=== PATIENT | female | born 1945 | race Caucasian/White ===

== ENCOUNTER 2021-04-21 09:11 | Observation (INO) | payer MEDICARE ==
[2021-04-21] MEDS ORDERED: Albuterol/Ipratropium 3.0-0.5 MG/3 ML Neb Soln NEB ONE (10:54)
--- NOTE | 2021-04-21 10:57 | EDM.PDOC ---
ED HPI GENERAL MEDICAL PROBLEM - General Chief Complaint: Respiratory Problem Stated Complaint: SHORTNESS OF BREATH Time Seen by Provider: 04/21/21 10:45 Source of Information: Reports: Patient, Family - History of Present Illness INITIAL COMMENTS - FREE TEXT/NARRATIVE: 76-year-old female notes that she has had increasing shortness of breath and difficulty breathing it would seem for the last several days accompanied by extreme smoke in the atmosphere. She does note a history of lung disease or heart disease. She apparently has had an inhaler in the past but not in recent years. She has mild back and chest discomfort but no radiation no diaphoresis no nausea. No family history of heart disease as noted. No fever or chills. She raises green phlegm in the morning. Appetite is diminished in the last few days but her bowel habits and urine habits have not changed. No other acute problems are identified. - Related Data Allergies Allergy/AdvReac Type Severity Reaction Status Date / Time codeine AdvReac Vomiting Verified 04/21/21 09:49 Home Meds: Home Meds Lovastatin 20 mg PO DAILY 04/21/21 [History] amLODIPine [Norvasc] 10 mg PO DAILY 04/21/21 [History] glipiZIDE [Glucotrol XL] 10 mg PO BID 04/21/21 [History] lisinopriL [Lisinopril] 10 mg PO DAILY 04/21/21 [History] metFORMIN [Glucophage] 1,000 mg PO BID 04/21/21 [History] Past Medical History HEENT History: Reports: Impaired Vision Cardiovascular History: Reports: High Cholesterol, Hypertension Respiratory History: Reports: Asthma Genitourinary History: Reports: None 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: Endocrine/Metabolic History: Reports: Diabetes, Type II, Obesity/BMI 30+ - Infectious Disease History Infectious Disease History: Reports: Chicken Pox, Influenza, Measles, Mumps, Pertussis (Whooping Cough) - Past Surgical History Head Surgeries/Procedures: Reports: None HEENT Surgical History: Reports: Cataract Surgery Cardiovascular Surgical History: Reports: None Respiratory Surgical History: Reports: None Endocrine Surgical History: Reports: None Dermatological Surgical History: Reports: None Social & Family History - Tobacco Use Tobacco Use Status *Q: Never Tobacco User Second Hand Smoke Exposure: No - Caffeine Use Caffeine Use: Reports: None - Recreational Drug Use Recreational Drug Use: No ED ROS GENERAL - Review of Systems Review Of Systems: Comprehensive ROS is negative, except as noted in HPI. ED EXAM, GENERAL - Physical Exam Exam: See Below Free Text/Narrative:: 76-year-old female alert and cooperative sitting on a stool not appear to be in distress significantly. HEENT shows eyes ears nose and throat appear to be normal. Mouth is moist neck is supple normal range of motion Chest is chest is clear with a regular rate and rhythm with no abnormal heart sounds or murmurs. Abdomen soft active bowel sounds but large Skin appears normal without rash Musculoskeletal appears normal with normal mobility and range of motion Neurologic physiologic urine tone and coordination. Exam Limited By: No Limitations Course - Vital Signs Text/Narrative:: CT of the chest does show a large pleural effusion on the left but significant lymphadenopathy in the regionand mass and area compatible with lymphoma so she needs to have a thoracentesis 1 improve her breathing and to normally get the cells out or do a biopsy 100 and round and there axilla and lateral area okay that would be great Dr. Aden is already accepted her P we will the mass compatible with lymph lymphoma Had another interesting case here 76-year-old lady shortness of breath in the last month or so and now diminishing appetite generally feeling well when she exerts herself confined much on physical exam she thought she dislocated inhalers because historically she got helped her years past mild no wheezing nothing in her chest so I did a chest x-ray today pleural effusion CT shows large pleural effusion on the left little bit on the right with massive lymphadenopathy axilla and Dr. Mari in the hospitalist is willing to admit and Dr. Dowd will do a thoracentesis tomorrow and appropriate biopsy Last Recorded V/S: Last Vital Signs Temp 36.6 C 04/21/21 09:54 Pulse 111 H 04/21/21 11:32 Resp 20 04/21/21 11:32 BP 111/65 04/21/21 11:32 Pulse Ox 94 L 04/21/21 11:32 - Orders/Labs/Meds Orders: Active Orders 24 hr Category Date Time Status EKG Documentation Completion [RC] ASDIRECTED Care 04/21/21 10:50 Active RT Aerosol Therapy [RC] ASDIRECTED Care 04/21/21 10:54 Active Iopamidol [Isovue-370 (76%)] Med 04/21/21 13:30 Active 75 ml IV . DIRECTED Sodium Chloride 0.9% [Saline Flush] Med 04/21/21 13:23 Active 10 ml FLUSH ONETIME PRN EKG 12 Lead [EK] Stat Ther 04/21/21 10:49 Ordered Medication Orders Iopamidol (Iopamidol 755 Mg/Ml 100 Ml Bottle) 75 ml IV . DIRECTED [facility] Last Admin: 04/21/21 13:42 Dose: 75 ml Documented by: GENIE Sodium Chloride (Sodium Chloride 0.9% 10 Ml Syringe) 10 ml FLUSH ONETIME PRN PRN Reason: PER RADIOLOGY PROTOCOL Last Admin: 04/21/21 13:41 Dose: 10 ml Documented by: GENIE Labs: Laboratory Tests 04/21/21 04/21/21 04/21/21 Range/Units 11:06 11:06 11:06 WBC 11.9 H (4.5-11.0) K/uL RBC 4.70 (3.30-5.50) M/uL Hgb 12.3 (12.0-15.0) g/dL Hct 38.8 (36.0-48.0) % MCV 83 (80-98) fL MCH 26 L (27-31) pg MCHC 32 (32-36) % Plt Count 381 (150-400) K/uL D-Dimer, Quantitative 1804.35 H (0.0-500.0) ng/mL ABG Hemoglobin (12.0-16.0) g/dL ABG Oxyhemoglobin % ABG Carboxyhemoglobin (0.0-1.6) % ABG Methemoglobin % VBG pH (7.350-7.450) VBG pCO2 mm/Hg VBG pO2 mm/Hg VBG HCO3 mmol/L VBG Total CO2 mmol/L VBG O2 Saturation VBG O2 Content %vol VBG Base Excess mm/L O2 Delivery Device Sodium 138 L (140-148) mmol/L Potassium 4.7 (3.6-5.2) mmol/L Chloride 101 (100-108) mmol/L Carbon Dioxide 26 (21-32) mmol/L Anion Gap 15.7 H (5.0-14.0) mmol/L BUN 18 (7-18) mg/dL Creatinine 1.1 H (0.6-1.0) mg/dL Est Cr Clr Drug Dosing 30.76 mL/min Estimated GFR (MDRD) 48 L (>60) Glucose 101 (74-106) mg/dL Calcium 10.0 (8.5-10.1) mg/dL Total Bilirubin 0.6 (0.2-1.0) mg/dL AST 27 (15-37) U/L ALT 21 (12-78) U/L Alkaline Phosphatase 93 (46-116) U/L Troponin I (0.000-0.056) ng/mL C-Reactive Protein 12.37 H (0.0-0.3) mg/dL NT-Pro-B Natriuret Pep 65 (5-450) pg/mL Total Protein 6.5 (6.4-8.2) g/dL Albumin 2.4 L (3.4-5.0) g/dL Globulin 4.1 H (2.3-3.5) g/dL Albumin/Globulin Ratio 0.6 L (1.2-2.2) Urine Color (YELLOW) Urine Appearance (CLEAR) Urine pH (5.0-8.0) Ur Specific [place] (1.008-1.030) Urine Protein (NEGATIVE) mg/dL Urine Glucose (UA) (NEGATIVE) mg/dL Urine Ketones (NEGATIVE) mg/dL Urine Occult Blood (NEGATIVE) Urine Nitrite (NEGATIVE) Urine Bilirubin (NEGATIVE) Urine Urobilinogen (0.2-1.0) EU/dL Ur Leukocyte Esterase (NEGATIVE) Urine RBC (0-5) Urine WBC (0-5) Ur Epithelial Cells Amorphous Sediment Urine Bacteria Urine Mucus 04/21/21 04/21/21 04/21/21 Range/Units 11:06 11:06 11:31 WBC (4.5-11.0) K/uL RBC (3.30-5.50) M/uL Hgb (12.0-15.0) g/dL Hct (36.0-48.0) % MCV (80-98) fL MCH (27-31) pg MCHC (32-36) % Plt Count (150-400) K/uL D-Dimer, Quantitative (0.0-500.0) ng/mL ABG Hemoglobin 13.0 (12.0-16.0) g/dL ABG Oxyhemoglobin 67.5 % ABG Carboxyhemoglobin 2.6 H (0.0-1.6) % ABG Methemoglobin 0.9 % VBG pH 7.471 H (7.350-7.450) VBG pCO2 33.3 mm/Hg VBG pO2 36.3 mm/Hg VBG HCO3 24.0 mmol/L VBG Total CO2 21.3 mmol/L VBG O2 Saturation 70.0 VBG O2 Content 12.3 %vol VBG Base Excess 1.3 mm/L O2 Delivery Device Room air Sodium (140-148) mmol/L Potassium (3.6-5.2) mmol/L Chloride (100-108) mmol/L Carbon Dioxide (21-32) mmol/L Anion Gap (5.0-14.0) mmol/L BUN (7-18) mg/dL Creatinine (0.6-1.0) mg/dL Est Cr Clr Drug Dosing mL/min Estimated GFR (MDRD) (>60) Glucose (74-106) mg/dL Calcium (8.5-10.1) mg/dL Total Bilirubin (0.2-1.0) mg/dL AST (15-37) U/L ALT (12-78) U/L Alkaline Phosphatase (46-116) U/L Troponin I < 0.017 (0.000-0.056) ng/mL C-Reactive Protein (0.0-0.3) mg/dL NT-Pro-B Natriuret Pep (5-450) pg/mL Total Protein (6.4-8.2) g/dL Albumin (3.4-5.0) g/dL Globulin (2.3-3.5) g/dL Albumin/Globulin Ratio (1.2-2.2) Urine Color Yellow (YELLOW) Urine Appearance Cloudy A (CLEAR) Urine pH 5.5 (5.0-8.0) Ur Specific [place] 1.025 (1.008-1.030) Urine Protein 30 H (NEGATIVE) mg/dL Urine Glucose (UA) Negative (NEGATIVE) mg/dL Urine Ketones Trace H (NEGATIVE) mg/dL Urine Occult Blood Negative (NEGATIVE) Urine Nitrite Positive H (NEGATIVE) Urine Bilirubin Small H (NEGATIVE) Urine Urobilinogen 1.0 (0.2-1.0) EU/dL Ur Leukocyte Esterase Small H (NEGATIVE) Urine RBC 0-5 (0-5) Urine WBC 10-20 H (0-5) Ur Epithelial Cells Moderate Amorphous Sediment Not seen Urine Bacteria Many Urine Mucus Many Meds: Medications Generic Name Dose Route Start Last Admin Trade Name Freq PRN Reason Stop Dose Admin Iopamidol 75 ml 04/21/21 13:30 04/21/21 13:42 Iopamidol 755 Mg/Ml 100 Ml Bottle IV 75 ml . DIRECTED THIAGO Administration Sodium Chloride 10 ml 04/21/21 13:23 04/21/21 13:41 Sodium Chloride 0.9% 10 Ml Syringe FLUSH 10 ml ONETIME PRN Administration PER RADIOLOGY PROTOCOL Discontinued Medications Generic Name Dose Route Start Last Admin Trade Name Freq PRN Reason Stop Dose Admin Albuterol/Ipratropium 3 ml 04/21/21 10:54 04/21/21 11:13 Albuterol/Ipratropium 3.0-0.5 Mg/3 Ml Neb Soln NEB 04/21/21 10:55 3 ml ONETIME ONE Administration Sodium Chloride 89 mls @ 3 mls/sec 04/21/21 13:23 04/21/21 13:42 Normal Saline IV 04/21/21 13:24 3 mls/sec ONETIME ONE Administration Departure - Departure Time of Disposition: 15:30 Disposition: Admitted As Inpatient 65 Clinical Impression: Pleural effusion - Discharge Information Referrals: Timbo Vidal MD [Primary Care Provider] - Sepsis Event Note (ED) - Evaluation Sepsis Screening Result: Possible Sepsis Risk - Focused Exam Vital Signs: Vital Signs Temp Pulse Resp BP Pulse Ox 04/21/21 11:32 111 H 20 111/65 94 L 04/21/21 09:54 36.6 C 116 H 24 H 137/75 92 L 04/21/21 09:48 36.6 C 116 H 24 H 137/75 92 L - My Orders Last 24 Hours: My Active Orders 04/21/21 10:49 EKG 12 Lead [EK] Stat 04/21/21 10:50 EKG Documentation Completion [RC] ASDIRECTED 04/21/21 10:54 RT Aerosol Therapy [RC] ASDIRECTED 04/21/21 13:23 Sodium Chloride 0.9% [Saline Flush] 10 ml FLUSH ONETIME PRN 04/21/21 13:30 Iopamidol [Isovue-370 (76%)] 75 ml IV . DIRECTED - Assessment/Plan Last 24 Hours: My Active Orders 04/21/21 10:49 EKG 12 Lead [EK] Stat 04/21/21 10:50 EKG Documentation Completion [RC] ASDIRECTED 04/21/21 10:54 RT Aerosol Therapy [RC] ASDIRECTED 04/21/21 13:23 Sodium Chloride 0.9% [Saline Flush] 10 ml FLUSH ONETIME PRN 04/21/21 13:30 Iopamidol [Isovue-370 (76%)] 75 ml IV . DIRECTED
--- NOTE | 2021-04-21 11:27 | CR ---
CHEST: 2 view CLINICAL HISTORY:SOB COMPARISON:None FINDINGS: Patient has a large left pleural effusion. Left heart margin is obscured. Pulmonary vascularity appears normal. Right lung is clear. Impression: Large left pleural effusion with underlying airspace disease. Underlying neoplasm not excluded
[2021-04-21] MEDS ORDERED: Sodium Chloride 0.9% 10 ML Syringe FLUSH PRN (13:23)
[2021-04-21] MEDS ORDERED: Iopamidol 755 Mg/ML 100 ML Bottle IV SCH (13:30)
--- NOTE | 2021-04-21 14:19 | CT ---
Ang Chest CLINICAL HISTORY: Large left pleural effusion, elevated d-dimer. TECHNIQUE: Thin section axial contiguous tomographic sections were taken through the chest after bolus IV iodinated contrast administration. Coronal and sagittal images were reconstructed. Auto dosage reduction and iterative reconstruction techniques employed. FINDINGS: Patient has a large left pleural effusion. There is airspace disease involving the left lung particularly in the left lower lobe much of which is compressive atelectasis. There is some groundglass opacification in the left upper lobe which could represent infiltrate or pneumonitis. There is a small right pleural effusion. There is some minimal groundglass opacification. There is diminished blood flow to the left lung due to pleural effusion and compressive atelectasis. No pulmonary artery filling defects are identified. Patient has a large mass in the left neck extending above the upper most scans. This measures 4.2 x 7.4 cm in AP and transverse diameter. The cranial to caudal extends beyond 7 cm. There is significant adenopathy in the both axilla and in the mediastinum. This may represent a lymphoma. Scans in the upper abdomen show extensive retroperitoneal lymphadenopathy IMPRESSION: No evidence of pulmonary embolus Large left pleural effusion with moderate compressive atelectasis of the left lung. There is a small right effusion Extensive lymphadenopathy in the axillae, mediastinum and retroperitoneum with a large mass versus matted adenopathy in the subclavicular region medially extending up and into the neck. This may represent lymphoma
--- NOTE | 2021-04-21 16:30 | PCM.HP.2 ---
H&P History of Present Illness - General Date of Service: 04/21/21 Admit Problem/Dx: Admission Diagnosis/Problem Admission Diagnosis/Problem Pleural effusion Source of Information: Patient, Family, Provider, RN Notes Reviewed History Limitations: Reports: No Limitations - History of Present Illness Initial Comments - Free Text/Narative: Ms. Centeno is a 76-year-old woman who was admitted through the emergency department to observation status with progressive fatigue and shortness of breath, secondary to a large left pleural effusion and probable lymphoma. She has not felt well over the past few weeks and is developed progressive fatigue as well as shortness of breath during that period of time. She presented to the emergency department today for further evaluation. White blood cell count is mildly elevated and there was elevation in CRP. Chest x-ray showed evidence of a large left pleural effusion. D-dimer was elevated so CT scan angiogram of the chest was obtained. There was no evidence of pulmonary embolism. CT scan did document a very large left pleural effusion and extensive lymphadenopathy in the retroperitoneum, mediastinum, axilla, and subclavicular space extending into the neck. - Related Data Allergies/Adverse Reactions: Allergies Allergy/AdvReac Type Severity Reaction Status Date / Time codeine AdvReac Vomiting Verified 04/21/21 09:49 Home Medications: Home Meds Lovastatin 20 mg PO DAILY 04/21/21 [History] amLODIPine [Norvasc] 10 mg PO DAILY 04/21/21 [History] glipiZIDE [Glucotrol XL] 10 mg PO BID 04/21/21 [History] lisinopriL [Lisinopril] 10 mg PO DAILY 04/21/21 [History] metFORMIN [Glucophage] 1,000 mg PO BID 04/21/21 [History] Past Medical History HEENT History: Reports: Impaired Vision Cardiovascular History: Reports: High Cholesterol, Hypertension Respiratory History: Reports: Asthma Genitourinary History: Reports: None 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: Endocrine/Metabolic History: Reports: Diabetes, Type II, Obesity/BMI 30+ - Infectious Disease History Infectious Disease History: Reports: Chicken Pox, Influenza, Measles, Mumps, Pertussis (Whooping Cough) - Past Surgical History Head Surgeries/Procedures: Reports: None HEENT Surgical History: Reports: Cataract Surgery Cardiovascular Surgical History: Reports: None Respiratory Surgical History: Reports: None Endocrine Surgical History: Reports: None Dermatological Surgical History: Reports: None Social & Family History - Tobacco Use Tobacco Use Status *Q: Never Tobacco User Second Hand Smoke Exposure: No - Caffeine Use Caffeine Use: Reports: None - Recreational Drug Use Recreational Drug Use: No H&P Review of Systems - Review of Systems: Review Of Systems: See Below General: Reports: Weakness, Fatigue. Denies: Fever, Chills HEENT: Reports: No Symptoms Pulmonary: Reports: Shortness of Breath, Cough. Denies: Wheezing, Pleuritic Chest Pain, Sputum, Hemoptysis Cardiovascular: Reports: Dyspnea on Exertion, Edema. Denies: Chest Pain, Palpitations, Orthopnea, PND, Lightheadedness Gastrointestinal: Reports: No Symptoms Genitourinary: Reports: No Symptoms Musculoskeletal: Reports: No Symptoms Skin: Reports: No Symptoms Psychiatric: Reports: No Symptoms Neurological: Reports: No Symptoms Hematologic/Lymphatic: Reports: No Symptoms Immunologic: Reports: No Symptoms Exam - Exam Exam: See Below - Vital Signs Vital Signs: Last Vital Signs Temp 98 F 04/21/21 09:54 Pulse 111 H 04/21/21 11:32 Resp 20 04/21/21 11:32 BP 111/65 04/21/21 11:32 Pulse Ox 94 L 04/21/21 11:32 Weight: 166 lb 14.239 oz - Exam Quality Assessment: DVT Prophylaxis General: Alert, Oriented, Cooperative, Mild Distress HEENT: Conjunctiva Clear, Hearing Intact, Mucosa Moist & [place], Normal Nasal Septum, Posterior Pharynx Clear, Pupils Equal Neck: Supple, Trachea Midline, Lymphadenopathy Lungs: Normal Respiratory Effort, Decreased Breath Sounds (Left lung field) Cardiovascular: Regular Rate, Regular Rhythm, Normal S1, Normal S2. No: Systolic Murmur, Diastolic Murmur GI/Abdominal Exam: Soft, Non-Tender, No Organomegaly, No Distention Back Exam: Normal Inspection, Full Range of Motion Skin: Warm, Dry, Intact Neurological: Cranial Nerves Intact, Strength Equal Bilateral, Normal Speech, Normal Tone, Sensation Intact. No: Focal Deficit Neuro Extensive - Mental Status: Alert, Oriented x3, Normal Mood/Affect, Normal Cognition, Memory Intact - Patient Data Lab Results Last 24 hrs: Laboratory Results - last 24 hr 04/21/21 04/21/21 04/21/21 Range/Units 11:06 11:06 11:06 WBC 11.9 H (4.5-11.0) K/uL RBC 4.70 (3.30-5.50) M/uL Hgb 12.3 (12.0-15.0) g/dL Hct 38.8 (36.0-48.0) % MCV 83 (80-98) fL MCH 26 L (27-31) pg MCHC 32 (32-36) % Plt Count 381 (150-400) K/uL D-Dimer, Quantitative 1804.35 H (0.0-500.0) ng/mL ABG Hemoglobin (12.0-16.0) g/dL ABG Oxyhemoglobin % ABG Carboxyhemoglobin (0.0-1.6) % ABG Methemoglobin % VBG pH (7.350-7.450) VBG pCO2 mm/Hg VBG pO2 mm/Hg VBG HCO3 mmol/L VBG Total CO2 mmol/L VBG O2 Saturation VBG O2 Content %vol VBG Base Excess mm/L O2 Delivery Device Sodium 138 L (140-148) mmol/L Potassium 4.7 (3.6-5.2) mmol/L Chloride 101 (100-108) mmol/L Carbon Dioxide 26 (21-32) mmol/L Anion Gap 15.7 H (5.0-14.0) mmol/L BUN 18 (7-18) mg/dL Creatinine 1.1 H (0.6-1.0) mg/dL Est Cr Clr Drug Dosing 30.76 mL/min Estimated GFR (MDRD) 48 L (>60) Glucose 101 (74-106) mg/dL Calcium 10.0 (8.5-10.1) mg/dL Total Bilirubin 0.6 (0.2-1.0) mg/dL AST 27 (15-37) U/L ALT 21 (12-78) U/L Alkaline Phosphatase 93 (46-116) U/L Troponin I (0.000-0.056) ng/mL C-Reactive Protein 12.37 H (0.0-0.3) mg/dL NT-Pro-B Natriuret Pep 65 (5-450) pg/mL Total Protein 6.5 (6.4-8.2) g/dL Albumin 2.4 L (3.4-5.0) g/dL Globulin 4.1 H (2.3-3.5) g/dL Albumin/Globulin Ratio 0.6 L (1.2-2.2) Urine Color (YELLOW) Urine Appearance (CLEAR) Urine pH (5.0-8.0) Ur Specific [place] (1.008-1.030) Urine Protein (NEGATIVE) mg/dL Urine Glucose (UA) (NEGATIVE) mg/dL Urine Ketones (NEGATIVE) mg/dL Urine Occult Blood (NEGATIVE) Urine Nitrite (NEGATIVE) Urine Bilirubin (NEGATIVE) Urine Urobilinogen (0.2-1.0) EU/dL Ur Leukocyte Esterase (NEGATIVE) Urine RBC (0-5) Urine WBC (0-5) Ur Epithelial Cells Amorphous Sediment Urine Bacteria Urine Mucus 04/21/21 04/21/21 04/21/21 Range/Units 11:06 11:06 11:31 WBC (4.5-11.0) K/uL RBC (3.30-5.50) M/uL Hgb (12.0-15.0) g/dL Hct (36.0-48.0) % MCV (80-98) fL MCH (27-31) pg MCHC (32-36) % Plt Count (150-400) K/uL D-Dimer, Quantitative (0.0-500.0) ng/mL ABG Hemoglobin 13.0 (12.0-16.0) g/dL ABG Oxyhemoglobin 67.5 % ABG Carboxyhemoglobin 2.6 H (0.0-1.6) % ABG Methemoglobin 0.9 % VBG pH 7.471 H (7.350-7.450) VBG pCO2 33.3 mm/Hg VBG pO2 36.3 mm/Hg VBG HCO3 24.0 mmol/L VBG Total CO2 21.3 mmol/L VBG O2 Saturation 70.0 VBG O2 Content 12.3 %vol VBG Base Excess 1.3 mm/L O2 Delivery Device Room air Sodium (140-148) mmol/L Potassium (3.6-5.2) mmol/L Chloride (100-108) mmol/L Carbon Dioxide (21-32) mmol/L Anion Gap (5.0-14.0) mmol/L BUN (7-18) mg/dL Creatinine (0.6-1.0) mg/dL Est Cr Clr Drug Dosing mL/min Estimated GFR (MDRD) (>60) Glucose (74-106) mg/dL Calcium (8.5-10.1) mg/dL Total Bilirubin (0.2-1.0) mg/dL AST (15-37) U/L ALT (12-78) U/L Alkaline Phosphatase (46-116) U/L Troponin I < 0.017 (0.000-0.056) ng/mL C-Reactive Protein (0.0-0.3) mg/dL NT-Pro-B Natriuret Pep (5-450) pg/mL Total Protein (6.4-8.2) g/dL Albumin (3.4-5.0) g/dL Globulin (2.3-3.5) g/dL Albumin/Globulin Ratio (1.2-2.2) Urine Color Yellow (YELLOW) Urine Appearance Cloudy A (CLEAR) Urine pH 5.5 (5.0-8.0) Ur Specific [place] 1.025 (1.008-1.030) Urine Protein 30 H (NEGATIVE) mg/dL Urine Glucose (UA) Negative (NEGATIVE) mg/dL Urine Ketones Trace H (NEGATIVE) mg/dL Urine Occult Blood Negative (NEGATIVE) Urine Nitrite Positive H (NEGATIVE) Urine Bilirubin Small H (NEGATIVE) Urine Urobilinogen 1.0 (0.2-1.0) EU/dL Ur Leukocyte Esterase Small H (NEGATIVE) Urine RBC 0-5 (0-5) Urine WBC 10-20 H (0-5) Ur Epithelial Cells Moderate Amorphous Sediment Not seen Urine Bacteria Many Urine Mucus Many Result Diagrams: 04/21/21 11:06 04/21/21 11:06 Sepsis Event Note - Evaluation Sepsis Screening Result: Possible Sepsis Risk - Focused Exam Vital Signs: Vital Signs Temp Pulse Resp BP Pulse Ox 04/21/21 11:32 111 H 20 111/65 94 L 04/21/21 09:54 98 F 116 H 24 H 137/75 92 L 04/21/21 09:48 98 F 116 H 24 H 137/75 92 L *Q Meaningful Use (ADM) - VTE *Q VTE Pharmacological Contraindications *Q: Patient Scheduled Surgery - VTE Risk Assess *Q Each Risk Factor Represents 1 Point: Obesity ( BMI > 25 kg/m2), Serious lung disease including pneumonia Total Score 1 Point Risk Factors: 2 Each Risk Factor Represents 2 Points: Malignancy (present or previous) Total Score 2 Point Risk Factors: 2 Each Risk Factor Represents 3 Points: Age 75 Years or Greater Total Score 3 Point Risk Factors: 3 Each Risk Factor Represents 5 Points: None Total Score 5 Point Risk Factors: 0 Venous Thromboembolism Risk Factor Score *Q: 7 Problem List Initiated/Reviewed/Updated: Yes Orders Last 24hrs: Active Orders 24 hr Category Date Time Status Patient Status Manage Transfer [TRANSFER] Routine ADT 04/21/21 16:14 Ordered EKG Documentation Completion [RC] ASDIRECTED Care 04/21/21 10:50 Active RT Aerosol Therapy [RC] ASDIRECTED Care 04/21/21 10:54 Active Iopamidol [Isovue-370 (76%)] Med 04/21/21 13:30 Active 75 ml IV . DIRECTED Sodium Chloride 0.9% [Saline Flush] Med 04/21/21 13:23 Active 10 ml FLUSH ONETIME PRN Resuscitation Status Routine Resus Stat 04/21/21 16:15 Ordered EKG 12 Lead [EK] Stat Ther 04/21/21 10:49 Ordered Medication Orders Iopamidol (Iopamidol 755 Mg/Ml 100 Ml Bottle) 75 ml IV . DIRECTED [facility] Last Admin: 04/21/21 13:42 Dose: 75 ml Documented by: GENIE Sodium Chloride (Sodium Chloride 0.9% 10 Ml Syringe) 10 ml FLUSH ONETIME PRN PRN Reason: PER RADIOLOGY PROTOCOL Last Admin: 04/21/21 13:41 Dose: 10 ml Documented by: GENIE Assessment/Plan Comment:: ASSESSMENT AND PLAN LARGE LEFT PLEURAL EFFUSION-noted on chest x-ray and CT scan, associated with significant lymphadenopathy. Likely cause of recent symptoms of weakness and shortness of breath. -Ultrasound left chest to rubén for thoracentesis -Diagnostic and therapeutic thoracentesis by Dr. Dowd in a.m. EXTENSIVE LYMPHADENOPATHY-appears to be consistent with lymphoma on CT scan -N.p.o. after midnight -IV fluids after midnight -Biopsy tomorrow by Dr. Dowd TYPE 2 DIABETES MELLITUS -Hold glipizide -Continue Metformin -4 times daily glucometers -Low-dose sliding scale Humalog MAINTENANCE ISSUES -DVT prophylaxis; SCUDs -GI prophylaxis; not indicated -Bishop catheter; not indicated -Nutrition; consistent carb diet, n.p.o. after midnight -Nicotine dependence; not required CODE STATUS-FULL CODE ADMISSION STATUS-this patient will be admitted to observation status, expect no more than a one night hospital stay for evaluation and management of problems as outlined above. DISPOSITION-anticipate discharge to home after the hospital stay. PRIMARY CARE PROVIDER-Dr. Vidal - Mortality Measure Prognosis:: Good
[2021-04-21] MEDS ORDERED: Acetaminophen 325 MG Tab PO PRN (16:46)
[2021-04-21] MEDS ORDERED: 50% Dextrose in Water 50 ML Syringe IV PRN (16:46)
[2021-04-21] MEDS ORDERED: Albuterol 0.083% 2.5 MG/3 ML Neb Soln NEB PRN (16:46)
[2021-04-21] MEDS ORDERED: Ondansetron 4 MG/2 ML SDV IV PRN (16:46)
[2021-04-21] MEDS ORDERED: Glucose Gel 15 GM in 37.5 GM Tube PO PRN (16:46)
[2021-04-21] MEDS ORDERED: oxyCODONE 5 MG Tab PO PRN (16:46)
[2021-04-21] MEDS: Insulin Lispro 100 Unit/ML 3 ML KwikPen SUBCUT SCH ×2 (17:34→20:58)
[2021-04-21] MEDS: metFORMIN 500 MG Tab PO SCH (17:45)
[2021-04-21] MEDS ORDERED: cefTRIAXone 1 GM in Sodium Chloride 0.9% 50 ML IV SCH (20:00)
[2021-04-21 22:29] LABS: CORONAVIRUS COVID-19 NAA NEGATIVE (NEGATIVE)
[2021-04-22] MEDS ORDERED: Sodium Chloride 0.9% 1,000 ML IV SCH (00:01)
[2021-04-22] MEDS ORDERED: Lidocaine 1% with EPINEPHrine 1:100,000 50 ML MDV ONE (08:16)
[2021-04-22] MEDS ORDERED: Bupivacaine 0.5% 50 ML MDV ONE (08:16)
[2021-04-22] MEDS ORDERED: Lovastatin 20 MG Tab (PTOM) PO SCH (09:00)
[2021-04-22] MEDS ORDERED: amLODIPine 5 MG Tab PO SCH (09:00)
[2021-04-22] MEDS ORDERED: Lisinopril 10 MG Tab (PTOM) PO SCH (09:00)
[2021-04-22] MEDS: Insulin Lispro 100 Unit/ML 3 ML KwikPen SUBCUT SCH ×2 (09:22→13:48)
[2021-04-22] MEDS: metFORMIN 500 MG Tab PO SCH (09:22)
[2021-04-22] MEDS ORDERED: AMLODIPINE 10 MG PO SCH (10:00)
[2021-04-22] MEDS ORDERED: METFORMIN 1,000MG TAB (PTOM) PO SCH (10:00)
[2021-04-22] MEDS ORDERED: Midazolam 1 MG/ML 2 ML SDV ONE (10:25)
[2021-04-22] MEDS ORDERED: fentaNYL 100 MCG/2 ML SDV ONE (10:25)
[2021-04-22] MEDS ORDERED: Propofol 200 MG/20 ML SDV ONE (10:25)
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
--- NOTE | 2021-04-22 15:10 | PCM.DCSUM1 ---
Discharge Summary - Hospital Course Brief History: Ms. Centeno is a 76-year-old woman who was admitted through the emergency department observation status with dyspnea secondary to a large left pleural effusion and extensive lymphadenopathy. - Discharge Data Discharge Date: 04/22/21 Discharge Disposition: Home, Self-Care 01 Condition: Fair - Referral to Home Health Primary Care Physician: Timbo Vidal MD - Discharge Diagnosis/Problem(s) (1) Lymphadenopathy SNOMED Code(s): 20933097 ICD Code: R59.1 - GENERALIZED ENLARGED LYMPH NODES Status: Acute Current Visit: Yes (2) Pleural effusion SNOMED Code(s): 98432694 ICD Code: J90 - PLEURAL EFFUSION, NOT ELSEWHERE CLASSIFIED Status: Acute Current Visit: Yes (3) Type 2 diabetes mellitus SNOMED Code(s): 43771066 ICD Code: E11.9 - TYPE 2 DIABETES MELLITUS WITHOUT COMPLICATIONS Status: Chronic Current Visit: No (4) UTI (urinary tract infection) SNOMED Code(s): 72881933 ICD Code: N39.0 - URINARY TRACT INFECTION, SITE NOT SPECIFIED Status: Acute Current Visit: Yes - Patient Summary/Data Consults: Consultations 04/21/21 16:46 Consult to Physician [CONS] Routine Consulting Provider: Yvon Dowd Call Completed to Consulting Physician: Yes Reason for Consult: Large left pleural effusion, extensive lymphadenopathy Hospital Course: Ms. Centeno is a 76-year-old woman who was admitted through the emergency department to observation status with progressive fatigue and shortness of breath, secondary to a large left pleural effusion and probable lymphoma. She has not felt well over the past few weeks and is developed progressive fatigue as well as shortness of breath during that period of time. She presented to the emergency department today for further evaluation. White blood cell count is mildly elevated and there was elevation in CRP. Chest x-ray showed evidence of a large left pleural effusion. D-dimer was elevated so CT scan angiogram of the chest was obtained. There was no evidence of pulmonary embolism. CT scan did document a very large left pleural effusion and extensive lymphadenopathy in the retroperitoneum, mediastinum, axilla, and subclavicular space extending into the neck. Urinalysis was also obtained and showed evidence of underlying infection. Urine culture was obtained and she was started on IV ceftriaxone pending culture results. She was given IV fluids through the night and was kept n.p.o. after midnight. Following morning she was seen and evaluated by Dr. Dowd. Thoracentesis was performed with removal of 2 L of fluid. Initial results do show elevated triglycerides in the fluids so she will be placed on a low fat diet. Initial Gram stain's from fluid are negative, other studies including cytology are pending. Biopsy of anterior supraclavicular lymph nodes were also performed, pathology results are pending and will be reviewed with the patient when she sees Dr. Dowd for follow-up. Urine culture results had not returned at the time of discharge and she will be discharged home on oral antibiotic therapy for an additional 4 days with cephalexin 500 mg 3 times daily. Follow-up appointment will be scheduled with Dr. Dowd March 28 and a chest x-ray will be obtained at the time of follow-up appointment. Follow-up appointment will be scheduled with her primary care provider within 1 week. Activity will be as tolerated and she will be on a diabetic low-fat diet. She will return to the emergency department or call the clinic if she develops increased shortness of breath before her follow-up appointments. - Patient Instructions Diet: Diabetic Diet Diet, Other: Low-fat diet Activity: As Tolerated Other/Special Instructions: Please schedule follow-up appointment with Dr. Anthony Dowd for March 28. Chest x-ray PA and lateral should be obtained at the time of that appointment. Please schedule follow-up appointment with Dr. Vidal within 1 week. - Discharge Plan *PRESCRIPTION DRUG MONITORING PROGRAM REVIEWED*: Not Applicable *COPY OF PRESCRIPTION DRUG MONITORING REPORT IN PATIENT MARTHA: Not Applicable Prescriptions/Med Rec: cephALEXin [Cephalexin] 500 mg PO TID #12 capsule Home Medications: Home Meds Lovastatin 20 mg PO DAILY 04/21/21 [History] amLODIPine [Norvasc] 10 mg PO DAILY 04/21/21 [History] glipiZIDE [Glucotrol XL] 10 mg PO BID 04/21/21 [History] lisinopriL [Lisinopril] 10 mg PO DAILY 04/21/21 [History] metFORMIN [Glucophage] 1,000 mg PO BID 04/21/21 [History] cephALEXin [Cephalexin] 500 mg PO TID #12 capsule 04/22/21 [Rx] Patient Handouts: Pleural Effusion Referrals: Timbo Vidal MD [Primary Care Provider] - - Discharge Summary/Plan Comment DC Time >30 min.: No - Patient Data Vitals - Most Recent: Last Vital Signs Temp 94.8 F L 04/22/21 13:00 Pulse 99 04/22/21 13:00 Resp 18 04/22/21 13:00 BP 116/47 L 04/22/21 13:00 Pulse Ox 93 L 04/22/21 13:00 Weight - Most Recent: 168 lb 9.611 oz I&O - Last 24 hours: Intake & Output 04/22/21 04/22/21 04/22/21 06:59 14:59 22:59 Intake Total 150 75 Output Total 300 Balance -150 75 Lab Results - Last 24 hrs: Laboratory Results - last 24 hr 04/21/21 04/21/21 04/21/21 Range/Units 17:09 20:58 21:50 POC Glucose 94 101 (74-106) mg/dL Fluid Type Fluid pH Fluid WBC /ul Fluid RBC /ul Fluid Mononuclear Cell % Fl Polymorphonucl Cell % Fluid Glucose mg/dL Fluid Total Protein g/dL Fluid LDH IU/L Fluid Amylase U/L Fluid Triglycerides mg/dL Influenza Type A RNA Negative (NEGATIVE) RSV RNA (INAAT) Negative (NEGATIVE) Influenza Type B RNA Negative (NEGATIVE) SARS-CoV-2 RNA (CLARI) Negative (NEGATIVE) 04/22/21 04/22/21 04/22/21 Range/Units 07:22 10:49 10:54 POC Glucose 102 (74-106) mg/dL Fluid Type Thoracentesis fluid Thoracentesis fluid Fluid pH Fluid WBC 2315 /ul Fluid RBC 86381 /ul Fluid Mononuclear Cell 59 % Fl Polymorphonucl Cell 41 % Fluid Glucose mg/dL Fluid Total Protein g/dL Fluid LDH IU/L Fluid Amylase 17 U/L Fluid Triglycerides mg/dL Influenza Type A RNA (NEGATIVE) RSV RNA (INAAT) (NEGATIVE) Influenza Type B RNA (NEGATIVE) SARS-CoV-2 RNA (CLARI) (NEGATIVE) 04/22/21 04/22/21 04/22/21 Range/Units 10:54 10:54 10:54 POC Glucose (74-106) mg/dL Fluid Type Thoracentesis fluid Thoracentesis fluid Thoracentesis fluid Fluid pH 8 Fluid WBC /ul Fluid RBC /ul Fluid Mononuclear Cell % Fl Polymorphonucl Cell % Fluid Glucose 117 mg/dL Fluid Total Protein g/dL Fluid LDH 272 IU/L Fluid Amylase U/L Fluid Triglycerides mg/dL Influenza Type A RNA (NEGATIVE) RSV RNA (INAAT) (NEGATIVE) Influenza Type B RNA (NEGATIVE) SARS-CoV-2 RNA (CLARI) (NEGATIVE) 04/22/21 04/22/21 Range/Units 10:54 10:54 POC Glucose (74-106) mg/dL Fluid Type Thoracentesis fluid Thoracentesis fluid Fluid pH Fluid WBC /ul Fluid RBC /ul Fluid Mononuclear Cell % Fl Polymorphonucl Cell % Fluid Glucose mg/dL Fluid Total Protein 3.8 g/dL Fluid LDH IU/L Fluid Amylase U/L Fluid Triglycerides 744 mg/dL Influenza Type A RNA (NEGATIVE) RSV RNA (INAAT) (NEGATIVE) Influenza Type B RNA (NEGATIVE) SARS-CoV-2 RNA (CLARI) (NEGATIVE) JODIE Results - Last 24 hrs: Microbiology 04/22/21 11:16 MANDI Preparation - Final Other - Lymph Node 04/22/21 11:16 Gram Stain - Final Lymph Node - Other 04/22/21 10:54 Gram Stain - Final Thoracentesis Fluid 04/22/21 11:53 MANDI Preparation - Final Other - Pleural Cavity, Unspecified Med Orders - Current: Current Medications Acetaminophen (Acetaminophen 325 Mg Tab) 650 mg PO Q4H PRN PRN Reason: Pain (Mild 1-3)/fever Albuterol (Albuterol 0.083% 2.5 Mg/3 Ml Neb Soln) 2.5 mg NEB Q4H PRN PRN Reason: Shortness Of Breath/wheezing Dextrose (Glucose Gel 15 Gm In 37.5 Gm Tube) 15 gm PO ONETIME PRN PRN Reason: Hypoglycemia Dextrose/Water (50% Dextrose In Water 50 Ml Syringe) 50 ml IV ONETIME PRN PRN Reason: Hypoglycemia Sodium Chloride (Normal Saline) 1,000 mls @ 125 mls/hr IV ASDIRECTED [facility] Last Admin: 04/22/21 02:38 Dose: 125 mls/hr Documented by: Ceftriaxone Sodium 1 gm/ (Sodium Chloride) 50 mls @ 100 mls/hr IV Q24H [facility] Last Admin: 04/21/21 20:55 Dose: 100 mls/hr Documented by: Insulin Human Lispro (Insulin Lispro 100 Unit/Ml 3 Ml Kwikpen) 0 unit SUBCUT QIDACANDBED [facility]; Protocol Last Admin: 04/22/21 13:48 Dose: Not Given Documented by: Lisinopril (Lisinopril 10 Mg Tab (Ptom)) 10 mg PO DAILY [facility] Last Admin: 04/22/21 14:14 Dose: Not Given Documented by: Lovastatin (Lovastatin 20 Mg Tab (Ptom)) 20 mg PO DAILY [facility] Last Admin: 04/22/21 13:47 Dose: Not Given Documented by: Ondansetron HCl (Ondansetron 4 Mg/2 Ml Sdv) 4 mg IV Q4H PRN PRN Reason: Nausea/Vomiting Oxycodone HCl (Oxycodone 5 Mg Tab) 5 mg PO Q4H PRN PRN Reason: Pain (moderate 4-6) Amlodipine 10mg Tab ((Ptom)) 1 each PO DAILY [facility] Last Admin: 04/22/21 14:14 Dose: Not Given Documented by: Metformin 1,000mg (Tab (Ptom)) 1 each PO BIDMEALS [facility] Last Admin: 04/22/21 14:14 Dose: Not Given Documented by: Discontinued Medications Albuterol/Ipratropium (Albuterol/Ipratropium 3.0-0.5 Mg/3 Ml Neb Soln) 3 ml NEB ONETIME ONE Stop: 04/21/21 10:55 Last Admin: 04/21/21 11:13 Dose: 3 ml Documented by: Bupivacaine HCl (Bupivacaine 0.5% 50 Ml Mdv) Confirm Administered Dose 50 ml .ROUTE .STK-MED ONE Stop: 04/22/21 08:17 Last Admin: 04/22/21 13:24 Dose: 2.5 ml Documented by: Fentanyl (Fentanyl 100 Mcg/2 Ml Sdv) Confirm Administered Dose 100 mcg .ROUTE .STK-MED ONE Stop: 04/22/21 10:26 Sodium Chloride (Normal Saline) 89 mls @ 3 mls/sec IV ONETIME ONE Stop: 04/21/21 13:24 Last Admin: 04/21/21 13:42 Dose: 3 mls/sec Documented by: Iopamidol (Iopamidol 755 Mg/Ml 100 Ml Bottle) 75 ml IV . DIRECTED [facility] Last Admin: 04/21/21 13:42 Dose: 75 ml Documented by: Lidocaine/Epinephrine (Lidocaine 1% With Epinephrine 1:100,000 50 Ml Mdv) Confirm Administered Dose 50 ml .ROUTE .STK-MED ONE Stop: 04/22/21 08:17 Last Admin: 04/22/21 13:23 Dose: 2.5 ml Documented by: Metformin HCl (Metformin 500 Mg Tab) 1,000 mg PO BIDMEALS [facility] Last Admin: 04/22/21 09:22 Dose: Not Given Documented by: Midazolam HCl (Midazolam 1 Mg/Ml 2 Ml Sdv) Confirm Administered Dose 2 mg .ROUTE .STK-MED ONE Stop: 04/22/21 10:26 Propofol (Propofol 200 Mg/20 Ml Sdv) Confirm Administered Dose 200 mg .ROUTE .STK-MED ONE Stop: 04/22/21 10:26 Sodium Chloride (Sodium Chloride 0.9% 10 Ml Syringe) 10 ml FLUSH ONETIME PRN PRN Reason: PER RADIOLOGY PROTOCOL Last Admin: 04/21/21 13:41 Dose: 10 ml Documented by: - Exam General: Reports: Alert, Oriented, Cooperative, Mild Distress Lungs: Reports: Clear to Auscultation, Normal Respiratory Effort, Decreased Breath Sounds (Left base) Cardiovascular: Reports: Regular Rate, Regular Rhythm, No Murmurs GI/Abdominal Exam: Soft, Non-Tender, No Organomegaly, No Distention Extremities: Non-Tender, No Pedal Edema *Q Meaningful Use (DIS) - VTE *Q VTE Pharmacological Contraindications *Q: Patient Scheduled Surgery
--- NOTE | 2021-04-23 12:09 | CR ---
CHEST: Portable 04/22/2021 at 11:48 AM CLINICAL HISTORY:Postthoracentesis COMPARISON:CT 04/21/2021 FINDINGS: Patient is status post left thoracentesis. There is significant reduction in the left effusion. There is no evidence of pneumothorax. Impression: Status post thoracentesis with significant reduction of left pleural effusion
--- NOTE | 2021-05-03 15:12 | OR ---
DATE OF PROCEDURE: 04/22/2021 SURGEON: Yvon Dowd MD PREOPERATIVE DIAGNOSES: 1. Shortness of the breath associated with large left pleural effusion. 2. Widespread lymphadenopathy suggestive of probable lymphoma. OPERATIVE PROCEDURES: 1. Ultrasound-guided left thoracentesis (67020). 2. Left cervical lymph node biopsy ([id number]). ANESTHESIA: Local plus IV sedation. INDICATION FOR PROCEDURE: A 76-year-old presenting with some ongoing shortness breath. On workup, she was noted to have a large left pleural effusion as well as extensive cervical thoracic and abdominal lymphadenopathy suggestive of a lymphoma as a primary diagnosis. Plan is to proceed with a left thoracentesis. The most easily accessible lymph node would be a posterior triangle lymph node located in the left neck and that would be the node we would plan to excise. Potential risks of the procedure including bleeding, infection, pneumohemothorax, or bleeding from the thoracentesis, possible infection at the lymph node biopsy along with possible injury to the spinal accessory nerve were all gone over and the patient wishes to proceed. DETAILS OF PROCEDURE: The patient was taken to the operating room and placed in initially sitting position. The site for the left thoracentesis was then marked with ultrasound and the that area in the posterolateral chest wall was anesthetized with 1% lidocaine mixed with Marcaine. The thoracentesis catheter was then placed. 2 L of delong somewhat milky- appearing fluid was then evacuated and sent for full microbiologic, cytologic, and chemistry evaluation along with cell count and differential. Because of the milkiness, this raised the suspicion of this being somewhat chylous in nature and triglyceride level was added to the usual labs tested for body fluid analysis. Once 2 L of fluid was removed, no further fluid was there available for evacuation and the catheter was withdrawn and dressing applied. The patient was now placed in a supine position. With the head turned somewhat towards the right, the left neck and surrounding areas were prepped and draped. The area over the palpable node in the mid posterior triangle was then anesthetized with 1% lidocaine mixed with Marcaine and a transversely-oriented incision was made and carried down through the skin and subcutaneous tissue. It was carried down through the 3 layers of the cervical fascia at which point the lymph node was identified. This was then dissected free from surrounding soft tissues. One additional somewhat deeper lymph node was also easily available and this was then dissected free as well and sent for histologic evaluation. From the first node, a small quantity was excised and sent for microbiologic workup. The cervical fascia layers were then approximated with some 3-0 Vicryl stitch, subcutaneous tissue with 4-0 Vicryl stitch and the skin with a 5-0 Vicryl subcuticular stitch followed by surgical glue and the patient tolerated the procedure well. The patient was taken to the recovery room in satisfactory condition. Yvon Dowd MD /[id number]
== END 2021-04-22 16:36 | disposition home or self-care (01) ==
LOC: JP.ED 09:11 → JP.MS 16:14
PROVIDERS: ADMIT Hospitalist; ATTEND Hospitalist
DX: J90 Pleural effusion, not elsewhere classified (principal); R59.1 Generalized enlarged lymph nodes; E11.9 Type 2 diabetes mellitus without complications; N39.0 Urinary tract infection, site not specified; D72.829 Elevated white blood cell count, unspecified; R79.82 Elevated C-reactive protein (CRP); R79.1 Abnormal coagulation profile; Z88.8 Allergy status to other drugs, medicaments and biological substances; Z79.84 Long term (current) use of oral hypoglycemic drugs; Z79.899 Other long term (current) drug therapy; Z01.812 Encounter for preprocedural laboratory examination; Z20.822 Contact with and (suspected) exposure to COVID-19
CPT/HCPCS: 0241U; 32555; 36415; 38510; 71045; 71046; 71275; 80053; 81001; 82150; 82803; 82945; 82947; 83615; 83880; 83986; 84157; 84478; 84484; 85027; 85379; 86140; 87015; 87070; 87077; 87086; 87102; 87116; 87186; 87205; 87206; 87220; 88112; 88305; 88312; 89050; 93005; 94640; 96365; 99285; A9270; G0378; J0696; J2250; J2704; J3010; J3490; J7030; Q9967; 88377; J7620-GY

== ENCOUNTER 2021-05-20 07:43 | Day surgery (SDC) | payer MEDICARE ==
[~2021-05-20 07:43] MED LIST: Bupivacaine 0.5% 50 ML MDV ONE; Lidocaine 1% with EPINEPHrine 1:100,000 50 ML MDV ONE; Midazolam 1 MG/ML 2 ML SDV ONE; Propofol 200 MG/20 ML SDV ONE; fentaNYL 100 MCG/2 ML SDV ONE
[2021-05-20] MEDS ORDERED: Dextrose 5%-Lactated Ringers 1,000 ML IV SCH (08:45)
[2021-05-20] MEDS ORDERED: ceFAZolin 2 GM in Sodium Chloride 0.9% 50 ML IV ONE (08:45)
[2021-05-20] MEDS ORDERED: ceFAZolin 2 GM in Premix Bag 1 BAG IV ONE (08:45)
--- NOTE | 2021-06-03 00:46 | OR ---
DATE OF PROCEDURE: 05/20/2021 SURGEON: Yvon Dowd MD PREOPERATIVE DIAGNOSIS: Indication for central venous access. POSTOPERATIVE DIAGNOSIS: Indication for central venous access. OPERATIVE PROCEDURE: Placement of Bard PowerPort via left subclavian vein approach (18064). ANESTHESIA: Local plus IV sedation. INDICATION FOR PROCEDURE: This is a 76-year-old female presenting with indication for central venous access. Plan is to proceed with Bard PowerPort placement. Potential risks including bleeding, infection, pneumohemothorax, vascular injury, possibility of port becoming occluded or infected were all reviewed, and the patient wishes to proceed. DESCRIPTION OF PROCEDURE: The patient was taken to the operating room, placed in a supine position. After IV sedation was administered, the upper chest and neck area were prepped and draped. The left subclavian area was anesthetized with 1% lidocaine mixed with Marcaine, and the left subclavian vein cannulated. A guidewire was passed and positioned into the superior vena cava. Some additional local was then injected, and a transverse infraclavicular incision was made, carried down through the skin and subcutaneous tissue including pectoralis major fascia. Over that plane, a pocket was constructed bluntly, and Bard port was then assembled and flushed with heparinized saline, and this port was placed into the pocket. The catheter was cut such that the tip would lie in the area of the superior vena cava, right atrial junction and right over the introducer peel-away catheter. The catheter was placed without difficulty. Good in and out flow was noted through the port, which was sutured with some 3-0 and 4-0 Vicryl stitch deep and 5-0 Vicryl subcuticular stitch. The port was then aspirated and good return was noted. Port was then flushed with heparinized saline and Steri-Strips applied. The patient was taken to the recovery room in satisfactory condition. There were no evident complications. Yvon Dowd MD /[id number]
== END 2021-05-20 11:30 | disposition home or self-care (01) ==
LOC: JP.SDS 07:43
PROVIDERS: ATTEND Surgery
DX: Z45.2 Encounter for adjustment and management of vascular access device (principal); I10 Essential (primary) hypertension; J45.909 Unspecified asthma, uncomplicated; E78.5 Hyperlipidemia, unspecified; E11.9 Type 2 diabetes mellitus without complications; Z88.5 Allergy status to narcotic agent; Z86.73 Personal history of transient ischemic attack (TIA), and cerebral infarction without residual deficits
CPT/HCPCS: 36561; C1788; J0690; J1642; J2020; J2250; J2704; J3010; J3490; J7121

== ENCOUNTER 2021-05-22 14:33 | Inpatient (IN) | payer MEDICARE ==
--- NOTE | 2021-05-22 14:54 | EDM.PDOC ---
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 She more recently had a port place in anticipation of chemo. She lives at home with her . She has noted a decrease in her strength and appetite starting yesterday. Arrives today via EMS. No fever. Feels a little more SOB than usual. Is on home oxygen. Onset: Gradual Onset Date: 05/21/21 Duration: Day(s): (1+), Getting Worse Location: Reports: Generalized Quality: Reports: Other (none new) Severity: Moderate (weakness) Improves with: Reports: None Worsens with: Reports: Other (time) Context: Reports: Other (see HPI) Associated Symptoms: Reports: Loss of Appetite, Malaise, Shortness of Breath, Weakness. 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) (none) - Related Data Allergies Allergy/AdvReac Type Severity Reaction Status Date / Time codeine AdvReac Vomiting Verified 05/22/21 14:39 Home Meds: Home Meds Lovastatin 20 mg PO DAILY 04/21/21 [History] amLODIPine [Norvasc] 10 mg PO DAILY 04/21/21 [History] glipiZIDE [Glucotrol XL] 10 mg PO BID 04/21/21 [History] lisinopriL [Lisinopril] 10 mg PO DAILY 04/21/21 [History] metFORMIN [Glucophage] 1,000 mg PO BID 04/21/21 [History] Aspirin [Halfprin] 81 mg PO DAILY 04/28/21 [History] Multivitamin [Multi-Vitamin Daily] 1 each PO DAILY 04/28/21 [History] Past Medical History HEENT History: Reports: Impaired Vision Cardiovascular History: Reports: High Cholesterol, Hypertension Respiratory History: Reports: Asthma, Other (See Below) Other Respiratory History: pleural effusion Gastrointestinal History: Reports: Hemorrhoids Genitourinary History: Reports: None 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: Musculoskeletal History: Reports: Fracture, Other (See Below) Other Musculoskeletal History: left wrist fracture Endocrine/Metabolic History: Reports: Diabetes, Type II, Obesity/BMI 30+ Oncologic (Cancer) History: Reports: Lymphoma - Infectious Disease History Infectious Disease History: Reports: Chicken Pox, Influenza, Measles, Mumps, Pertussis (Whooping Cough) - Past Surgical History Head Surgeries/Procedures: Reports: None HEENT Surgical History: Reports: Cataract Surgery Cardiovascular Surgical History: Reports: None Respiratory Surgical History: Reports: Thoracentesis GI Surgical History: Reports: None Endocrine Surgical History: Reports: None Musculoskeletal Surgical History: Reports: None Oncologic Surgical History: Reports: Other (See Below) Other Oncologic Surgeries/Procedures: lymph node biopsy Dermatological Surgical History: Reports: None Social & Family History - Family History Oncologic: Reports: Other (See Below) Other Oncologic Family History: mother-stomach cancer - Tobacco Use Tobacco Use Status *Q: Never Tobacco User - Caffeine Use Caffeine Use: Reports: None, Soda ED ROS GENERAL - Review of Systems Review Of Systems: See Below Constitutional: Reports: No Symptoms HEENT: Reports: No Symptoms Respiratory: Reports: Shortness of Breath Cardiovascular: Reports: Dyspnea on Exertion, Edema (chronic) Endocrine: Reports: No Symptoms GI/Abdominal: Reports: Decreased Appetite : Reports: No Symptoms Musculoskeletal: Reports: No Symptoms Skin: Reports: No Symptoms Neurological: Reports: No Symptoms Psychiatric: Reports: No Symptoms ED EXAM, GENERAL - Physical Exam Exam: See Below Exam Limited By: No Limitations General Appearance: Alert, WD/WN, Mild Distress Eye Exam: Bilateral Eye: Normal Inspection, PERRL Ears: Normal External Exam, Normal Canal, Hearing Grossly Normal Ear Exam: Bilateral Ear: Auricle Normal, Canal Normal Nose: Normal Inspection, No Blood Throat/Mouth: Normal Inspection, Normal Lips, Normal Oropharynx, Normal Voice, No Airway Compromise, Other (dry oral mucosa) Head: Atraumatic, Normocephalic Neck: Normal Inspection, Non-Tender Respiratory/Chest: No Respiratory Distress, Lungs Clear, Normal Breath Sounds, No Accessory Muscle Use Cardiovascular: Regular Rate, Rhythm. No: No Edema GI/Abdominal: Normal Bowel Sounds, Soft, Non-Tender, No Distention. No: D istended Back Exam: Normal Inspection. No: CVA Tenderness (R), CVA Tenderness (L) Extremities: Normal Inspection, Normal Range of Motion, Non-Tender, Pedal Edema (1+ pitting edema of both LE's below the knees). No: No Pedal Edema Neurological: Alert, Oriented, CN II-XII Intact, Normal Cognition, No Motor/Sensory Deficits Psychiatric: Normal Affect, Normal Mood Skin Exam: Warm, Dry, Intact, No Rash, Pallor Course - Vital Signs Text/Narrative:: Dr. Omalley called @ 1745h - Radiology Interpretation Free Text/Narrative:: CXR-persisting L pleural effusion, new R pleural effusion. CT chest-pending Departure - Departure Disposition: Admitted As Inpatient 65 Clinical Impression: Bilateral pleural effusion, Lymphoma involving lung - Discharge Information Sepsis Event Note (ED) - Evaluation Sepsis Screening Result: Possible Severe Sepsis Risk <Duncan Gagnon - Last Filed: 05/22/21 23:24> Course - Vital Signs Last Recorded V/S: Last Vital Signs Temp 96.9 F 05/22/21 16:24 Pulse 92 05/22/21 20:19 Resp 20 05/22/21 20:19 BP 169/97 H 05/22/21 20:19 Pulse Ox 96 05/22/21 20:19 - Orders/Labs/Meds Orders: Active Orders 24 hr Category Date Time Status Chest 1V Frontal [CR] Stat Exams 05/22/21 14:52 Taken CULTURE BODY FLUID + SMEAR [RM] Stat Lab 05/22/21 15:26 Results Medication Orders Acetaminophen (Acetaminophen 325 Mg Tab) 650 mg PO Q4H PRN PRN Reason: Pain (Mild 1-3)/fever Aspirin (Aspirin 81 Mg Tab.Ec) 81 mg PO DAILY [facility] Dextrose (Glucose Gel 15 Gm In 37.5 Gm Tube) 15 gm PO ONETIME PRN PRN Reason: Hypoglycemia Dextrose/Water (50% Dextrose In Water 50 Ml Syringe) 50 ml IV ONETIME PRN PRN Reason: Hypoglycemia Enoxaparin Sodium (Enoxaparin 30 Mg/0.3 Ml Syringe) 30 mg SUBCUT BEDTIME [facility] Last Admin: 05/22/21 20:49 Dose: 30 mg Documented by: HAN Sodium Chloride (Normal Saline) 1,000 mls @ 125 mls/hr IV ASDIRECTED [facility] Last Admin: 05/22/21 22:32 Dose: 125 mls/hr Documented by: HAN Levofloxacin/Dextrose 750 mg/ (Premix) 150 mls @ 100 mls/hr IV Q48H [facility] Last Admin: 05/22/21 20:36 Dose: 100 mls/hr Documented by: HAN Piperacillin/Tazobactam/ (Dextrose 2.25 gm/ Premix) 50 mls @ 100 mls/hr IV Q6H [facility] Vancomycin HCl 1 gm/ Sodium (Chloride) 250 mls @ 166.667 mls/hr IV Q24H [facility] Last Admin: 05/22/21 22:29 Dose: 166.667 mls/hr Documented by: HAN Insulin Human Lispro (Insulin Lispro 100 Unit/Ml 3 Ml Kwikpen) 0 unit SUBCUT QIDACANDBED [facility]; Protocol Last Admin: 05/22/21 21:31 Dose: 1 unit Documented by: HAN Cosigned by: [id number] Lisinopril (Lisinopril 10 Mg Tab) 10 mg PO DAILY [facility] Lovastatin (Lovastatin 20 Mg Tab) 20 mg PO DAILY [facility] Multivitamins/Minerals (Multivitamins With Iron/Calcium/Folic Acid/Minerals Tab) 1 tab PO DAILY [facility] Ondansetron HCl (Ondansetron 4 Mg/2 Ml Sdv) 4 mg IV Q4H PRN PRN Reason: Nausea/Vomiting Oxycodone HCl (Oxycodone 5 Mg Tab) 5 mg PO Q4H PRN PRN Reason: Pain (moderate 4-6) Pharmacy Consult (Vancomycin Per Pharmacy) 1 each .XX ASDIRECTED [facility] Polyethylene Glycol (Polyethylene Glycol 3350 Powder 17 Gm Packet) 17 gm PO DAILY PRN PRN Reason: Constipation Sodium Chloride (Sodium Chloride 0.9% 10 Ml Syringe) 10 ml FLUSH ASDIRECTED PRN PRN Reason: Keep Vein Open Labs: Laboratory Tests 05/22/21 05/22/21 05/22/21 Range/Units 14:59 14:59 14:59 WBC 25.3 H (4.5-11.0) K/uL RBC 4.53 (3.30-5.50) M/uL Hgb 11.4 L (12.0-15.0) g/dL Hct 36.2 (36.0-48.0) % MCV 80 (80-98) fL MCH 25 L (27-31) pg MCHC 32 (32-36) % Plt Count 226 (150-400) K/uL Sodium 128 L (140-148) mmol/L Potassium 4.9 (3.6-5.2) mmol/L Chloride 91 L (100-108) mmol/L Carbon Dioxide 32 (21-32) mmol/L Anion Gap 9.9 (5.0-14.0) mmol/L BUN 67 H D (7-18) mg/dL Creatinine 1.9 H D (0.6-1.0) mg/dL Est Cr Clr Drug Dosing TNP Estimated GFR (MDRD) 26 L (>60) Glucose 244 H (74-106) mg/dL Calcium 8.0 L D (8.5-10.1) mg/dL Total Bilirubin 0.6 (0.2-1.0) mg/dL AST 25 (15-37) U/L ALT 13 (12-78) U/L Alkaline Phosphatase 87 (46-116) U/L C-Reactive Protein 11.13 H (0.0-0.3) mg/dL Total Protein 4.2 L (6.4-8.2) g/dL Albumin 1.4 L (3.4-5.0) g/dL Globulin 2.8 (2.3-3.5) g/dL Albumin/Globulin Ratio 0.5 L (1.2-2.2) Procalcitonin 0.17 ng/mL SARS-CoV-2 RNA (CLARI) (NEGATIVE) 05/22/21 Range/Units 17:59 WBC (4.5-11.0) K/uL RBC (3.30-5.50) M/uL Hgb (12.0-15.0) g/dL Hct (36.0-48.0) % MCV (80-98) fL MCH (27-31) pg MCHC (32-36) % Plt Count (150-400) K/uL Sodium (140-148) mmol/L Potassium (3.6-5.2) mmol/L Chloride (100-108) mmol/L Carbon Dioxide (21-32) mmol/L Anion Gap (5.0-14.0) mmol/L BUN (7-18) mg/dL Creatinine (0.6-1.0) mg/dL Est Cr Clr Drug Dosing Estimated GFR (MDRD) (>60) Glucose (74-106) mg/dL Calcium (8.5-10.1) mg/dL Total Bilirubin (0.2-1.0) mg/dL AST (15-37) U/L ALT (12-78) U/L Alkaline Phosphatase (46-116) U/L C-Reactive Protein (0.0-0.3) mg/dL Total Protein (6.4-8.2) g/dL Albumin (3.4-5.0) g/dL Globulin (2.3-3.5) g/dL Albumin/Globulin Ratio (1.2-2.2) Procalcitonin ng/mL SARS-CoV-2 RNA (CLARI) Negative (NEGATIVE) Meds: Medications Generic Name Dose Route Start Last Admin Trade Name Freq PRN Reason Stop Dose Admin Acetaminophen 650 mg 05/22/21 19:38 Acetaminophen 325 Mg Tab PO Q4H PRN Pain (Mild 1-3)/fever Aspirin 81 mg 05/23/21 09:00 Aspirin 81 Mg Tab.Ec PO DAILY [facility] Dextrose 15 gm 05/22/21 19:38 Glucose Gel 15 Gm In 37.5 Gm Tube PO ONETIME PRN Hypoglycemia Dextrose/Water 50 ml 05/22/21 19:38 50% Dextrose In Water 50 Ml Syringe IV ONETIME PRN Hypoglycemia Enoxaparin Sodium 30 mg 05/22/21 21:00 05/22/21 20:49 Enoxaparin 30 Mg/0.3 Ml Syringe SUBCUT 30 mg BEDTIME [facility] Administration Sodium Chloride 1,000 mls @ 125 mls/hr 05/22/21 19:38 05/22/21 22:32 Normal Saline IV 125 mls/hr ASDIRECTED [facility] Administration Levofloxacin/Dextrose 750 mg/ 150 mls @ 100 mls/hr 05/22/21 20:00 05/22/21 20:36 Premix IV 100 mls/hr Q48H [facility] Administration Piperacillin/Tazobactam/ 50 mls @ 100 mls/hr 05/22/21 22:00 Dextrose 2.25 gm/ Premix IV Q6H [facility] Vancomycin HCl 1 gm/ Sodium 250 mls @ 166.667 mls/hr 05/22/21 23:00 05/22/21 22:29 Chloride IV 166.667 mls/hr Q24H [facility] Administration Insulin Human Lispro 0 unit 05/22/21 20:00 05/22/21 21:31 Insulin Lispro 100 Unit/Ml 3 Ml Kwikpen SUBCUT 1 unit QIDACANDBED [facility] Administration Protocol Lisinopril 10 mg 05/23/21 09:00 Lisinopril 10 Mg Tab PO DAILY [facility] Lovastatin 20 mg 05/23/21 09:00 Lovastatin 20 Mg Tab PO DAILY [facility] Multivitamins/Minerals 1 tab 05/23/21 09:00 Multivitamins With Iron/Calcium/Folic Acid/Minerals Tab PO DAILY [facility] Ondansetron HCl 4 mg 05/22/21 19:38 Ondansetron 4 Mg/2 Ml Sdv IV Q4H PRN Nausea/Vomiting Oxycodone HCl 5 mg 05/22/21 19:38 Oxycodone 5 Mg Tab PO Q4H PRN Pain (moderate 4-6) Pharmacy Consult 1 each 05/22/21 23:00 Vancomycin Per Pharmacy .XX ASDIRECTED [facility] Polyethylene Glycol 17 gm 05/22/21 19:38 Polyethylene Glycol 3350 Powder 17 Gm Packet PO DAILY PRN Constipation Sodium Chloride 10 ml 05/22/21 19:38 Sodium Chloride 0.9% 10 Ml Syringe FLUSH ASDIRECTED PRN Keep Vein Open Discontinued Medications Generic Name Dose Route Start Last Admin Trade Name Freq PRN Reason Stop Dose Admin Sodium Chloride 1,000 mls @ 1,000 mls/hr 05/22/21 15:39 05/22/21 16:07 Normal Saline IV 05/22/21 16:38 1,000 mls/hr .BOLUS ONE Administration Sodium Chloride 1,000 mls @ 1,000 mls/hr 05/22/21 17:34 05/22/21 17:39 Normal Saline IV 05/22/21 18:33 1,000 mls/hr .BOLUS ONE Administration Vancomycin HCl 1 gm 05/22/21 20:00 Vancomycin 1 Gm Sdv IV .PHARMACY TO DOSE [facility] - Re-Assessments/Exams Free Text/Narrative Re-Assessment/Exam: 05/22/21 18:46 Care turned over from Dr. Sanchez pending CT of the chest results as well as UA. Dr. Omalley is aware of the patient needing admission. He arrived to admit the patient just prior to CT report. Results are as follows Impression: 1. Partially seen left supraclavicular upper mediastinal mass versus conglomerated roger mass does not appear significantly changed. Moderate worsening of significant left axillary adenopathy worsening mediastinal and hilar adenopathy. 2. Moderate loculated left effusion. Moderate right effusion has increased. P atchy left upper lobe opacities. Left lingula and lower lobe atelectasis and consolidation with right basilar consolidation/atelectasis. 3. Extensive conglomerated upper abdominal retroperitoneal periaortic adenopathy. This does not appear significantly changed. Admission to the hospitalist service. Departure - Departure Time of Disposition: 19:05 Sepsis Event Note (ED) - Focused Exam Vital Signs: Vital Signs Temp Pulse Resp BP Pulse Ox 05/22/21 18:11 87 26 H 108/33 L 95 05/22/21 17:34 84 20 89/48 L 95 05/22/21 17:07 88 15 95/27 L 97 05/22/21 16:24 96.9 F 05/22/21 16:20 90 20 91/45 L 96 05/22/21 16:10 94 18 89/44 L 98 05/22/21 15:21 89 30 H 94/43 L 98 05/22/21 14:52 88 19 84/32 L 96 05/22/21 14:45 97.3 F 93 28 H 85/42 L 95 05/22/21 14:37 97.3 F 93 28 H 85/42 L 95
[2021-05-22] MEDS ORDERED: Sodium Chloride 0.9% 1,000 ML IV ONE ×2 (15:39→17:34)
--- NOTE | 2021-05-22 18:41 | CRLCT ---
For Patients: As a result of the Century Cures Act, medical imaging exams and procedure reports are released immediately into your electronic medical record. You may view this report before your referring provider. If you have questions, please contact your health care provider. Indication: Shortness breath effusions increased white count Technique: Noncontrast CT chest Comparison: CT chest 04/21/2021 Findings: Normal caliber thoracic aorta. The heart size is normal there is no significant pericardial effusion. Moderate loculated left effusion diffuse patchy left upper lobe opacity lingular and basilar atelectasis and consolidation. Moderate to large right effusion which is increased. Right lower lobe atelectasis and consolidation. Left basilar chest tube. Again partially seen is a large left supraclavicular /upper mediastinal mass versus conglomerated roger mass not significantly changed. Measuring approximately 9 x 3.6 centimeters measured on series 2, image 6. Moderate worsening of significant left axillary adenopathy. Larger left axillary node measures 3 x 4.6 centimeters series 2, image 34. Worsening mediastinal and hilar adenopathy mild right axillary adenopathy which appears slightly improved. Upper abdominal retroperitoneal adenopathy with conglomerated retroperitoneal periaortic pericaval roger masses partially seen. This does not appear significantly changed. No suspicious bony lesions are seen. Impression: 1. Partially seen left supraclavicular upper mediastinal mass versus conglomerated roger mass does not appear significantly changed. Moderate worsening of significant left axillary adenopathy worsening mediastinal and hilar adenopathy. 2. Moderate loculated left effusion. Moderate right effusion has increased. Patchy left upper lobe opacities. Left lingula and lower lobe atelectasis and consolidation with right basilar consolidation/atelectasis. 3. Extensive conglomerated upper abdominal retroperitoneal periaortic adenopathy. This does not appear significantly changed. Please note that all CT scans at this facility use dose modulation, iterative reconstruction, and/or weight-based dosing when appropriate to reduce radiation dose to as low as reasonably achievable. Dictated by Nicolasa Bourne MD @ 05/22/2021 6:39:52 PM (Electronically Signed)
--- NOTE | 2021-05-22 19:30 | PCM.HP.2 ---
H&P History of Present Illness - General Date of Service: 05/22/21 Admit Problem/Dx: Admission Diagnosis/Problem Admission Diagnosis/Problem Pneumonia Source of Information: Patient, Family, Provider, RN Notes Reviewed History Limitations: Reports: No Limitations - History of Present Illness Initial Comments - Free Text/Narative: Ms. Centeno is a 76-year-old woman who was admitted through the emergency department with progressive weakness and shortness of breath secondary to bilateral pleural effusions, pneumonia, and widespread lymphoma. She was hospitalized at this facility about a month ago because of left pleural effusion. At that time CT scan showed bulky lymphadenopathy in addition to the effusion consistent with lymphoma. She underwent thoracentesis as well as biopsy of supraclavicular lymph nodes. She has been found to have lymphoma and since the hospitalization has had a Pleurx drain placed on the left as well as placement of a Port-A-Cath. She has not yet started chemotherapy. She has become progressively more weak with very poor appetite and poor oral intake. Over the past few days has become more short of breath despite regular drainage of the left pleural effusion. On evaluation in the emergency department today CRP remains significantly elevated and white blood cell count is also markedly increased. She has developed acute kidney injury likely secondary to dehydration. CT scan shows increase in adenopathy from the lymphoma, moderate right pleural effusion, and loculated left pleural effusion with probable infiltrates and consolidation. She has experienced a cough but denies fever chills or sweats. - Related Data Allergies/Adverse Reactions: Allergies Allergy/AdvReac Type Severity Reaction Status Date / Time codeine AdvReac Vomiting Verified 05/22/21 14:39 Home Medications: Home Meds Lovastatin 20 mg PO DAILY 04/21/21 [History] amLODIPine [Norvasc] 10 mg PO DAILY 04/21/21 [History] glipiZIDE [Glucotrol XL] 10 mg PO BID 04/21/21 [History] lisinopriL [Lisinopril] 10 mg PO DAILY 04/21/21 [History] metFORMIN [Glucophage] 1,000 mg PO BID 04/21/21 [History] Aspirin [Halfprin] 81 mg PO DAILY 04/28/21 [History] Multivitamin [Multi-Vitamin Daily] 1 each PO DAILY 04/28/21 [History] Past Medical History HEENT History: Reports: Impaired Vision Cardiovascular History: Reports: High Cholesterol, Hypertension Respiratory History: Reports: Asthma, Other (See Below) Other Respiratory History: pleural effusion Gastrointestinal History: Reports: Hemorrhoids Genitourinary History: Reports: None [employer] History: Reports: Musculoskeletal History: Reports: Fracture, Other (See Below) Other Musculoskeletal History: left wrist fracture Endocrine/Metabolic History: Reports: Diabetes, Type II, Obesity/BMI 30+ Oncologic (Cancer) History: Reports: Lymphoma - Infectious Disease History Infectious Disease History: Reports: Chicken Pox, Influenza, Measles, Mumps, Pertussis (Whooping Cough) - Past Surgical History Head Surgeries/Procedures: Reports: None HEENT Surgical History: Reports: Cataract Surgery Cardiovascular Surgical History: Reports: None Respiratory Surgical History: Reports: Thoracentesis GI Surgical History: Reports: None Endocrine Surgical History: Reports: None Musculoskeletal Surgical History: Reports: None Oncologic Surgical History: Reports: Other (See Below) Other Oncologic Surgeries/Procedures: lymph node biopsy Dermatological Surgical History: Reports: None Social & Family History - Family History Oncologic: Reports: Other (See Below) Other Oncologic Family History: mother-stomach cancer - Tobacco Use Tobacco Use Status *Q: Never Tobacco User - Caffeine Use Caffeine Use: Reports: None, Soda H&P Review of Systems - Review of Systems: Review Of Systems: See Below General: Reports: Malaise, Weakness, Fatigue, Decreased Appetite. Denies: Fever, Chills HEENT: Reports: No Symptoms Pulmonary: Reports: Shortness of Breath, Cough. Denies: Wheezing, Pleuritic Chest Pain, Sputum, Hemoptysis Cardiovascular: Reports: Dyspnea on Exertion, Edema. Denies: Chest Pain, Palpitations, Orthopnea, PND, Lightheadedness Gastrointestinal: Reports: No Symptoms Genitourinary: Reports: No Symptoms Musculoskeletal: Reports: No Symptoms Skin: Reports: No Symptoms Psychiatric: Reports: No Symptoms Neurological: Reports: No Symptoms Hematologic/Lymphatic: Reports: No Symptoms Immunologic: Reports: No Symptoms Exam - Exam Exam: See Below - Vital Signs Vital Signs: Last Vital Signs Temp 96.9 F 05/22/21 16:24 Pulse 86 05/22/21 19:08 Resp 26 H 05/22/21 18:11 BP 108/51 L 05/22/21 19:08 Pulse Ox 97 05/22/21 19:08 Weight: 170 lb - Exam Quality Assessment: Supplemental Oxygen, DVT Prophylaxis General: Alert, Oriented, Cooperative, Moderate Distress HEENT: Conjunctiva Clear, Hearing Intact, Normal Nasal Septum, Posterior Pharynx Clear, Pupils Equal. No: Mucosa Moist & [place] Neck: Supple, Trachea Midline, +2 Carotid Pulse wo Bruit Lungs: Clear to Auscultation, Normal Respiratory Effort, Decreased Breath Sounds. No: Rales, Rhonchi, Wheezing Cardiovascular: Regular Rate, Regular Rhythm, Normal S1, Normal S2. No: Systolic Murmur, Diastolic Murmur GI/Abdominal Exam: Soft, Non-Tender, No Organomegaly, No Distention Back Exam: Normal Inspection, Full Range of Motion Extremities: Non-Tender, No Pedal Edema Skin: Warm, Dry, Intact Neurological: Cranial Nerves Intact, Strength Equal Bilateral, Normal Speech, Normal Tone, Sensation Intact. No: Focal Deficit Neuro Extensive - Mental Status: Alert, Oriented x3, Normal Mood/Affect, Normal Cognition, Memory Intact - Patient Data Lab Results Last 24 hrs: Laboratory Results - last 24 hr 05/22/21 05/22/21 05/22/21 Range/Units 14:59 14:59 17:59 WBC 25.3 H (4.5-11.0) K/uL RBC 4.53 (3.30-5.50) M/uL Hgb 11.4 L (12.0-15.0) g/dL Hct 36.2 (36.0-48.0) % MCV 80 (80-98) fL MCH 25 L (27-31) pg MCHC 32 (32-36) % Plt Count 226 (150-400) K/uL Sodium 128 L (140-148) mmol/L Potassium 4.9 (3.6-5.2) mmol/L Chloride 91 L (100-108) mmol/L Carbon Dioxide 32 (21-32) mmol/L Anion Gap 9.9 (5.0-14.0) mmol/L BUN 67 H D (7-18) mg/dL Creatinine 1.9 H D (0.6-1.0) mg/dL Est Cr Clr Drug Dosing TNP Estimated GFR (MDRD) 26 L (>60) Glucose 244 H (74-106) mg/dL Calcium 8.0 L D (8.5-10.1) mg/dL Total Bilirubin 0.6 (0.2-1.0) mg/dL AST 25 (15-37) U/L ALT 13 (12-78) U/L Alkaline Phosphatase 87 (46-116) U/L C-Reactive Protein 11.13 H (0.0-0.3) mg/dL Total Protein 4.2 L (6.4-8.2) g/dL Albumin 1.4 L (3.4-5.0) g/dL Globulin 2.8 (2.3-3.5) g/dL Albumin/Globulin Ratio 0.5 L (1.2-2.2) SARS-CoV-2 RNA (CLARI) Negative (NEGATIVE) Result Diagrams: 05/22/21 14:59 05/22/21 14:59 Martin Results Last 24 hrs: Microbiology 05/22/21 15:26 Gram Stain - Final Pleural Fluid - Pleural Cavity, Left Aerobic Culture - Final Anaerobic Culture - Final Sepsis Event Note - Evaluation Sepsis Screening Result: Possible Severe Sepsis Risk - Focused Exam Vital Signs: Vital Signs Temp Pulse Resp BP Pulse Ox 05/22/21 19:08 86 108/51 L 97 05/22/21 18:11 87 26 H 108/33 L 95 05/22/21 17:34 84 20 89/48 L 95 05/22/21 17:07 88 15 95/27 L 97 05/22/21 16:24 96.9 F 05/22/21 16:20 90 20 91/45 L 96 05/22/21 16:10 94 18 89/44 L 98 05/22/21 15:21 89 30 H 94/43 L 98 05/22/21 14:52 88 19 84/32 L 96 05/22/21 14:45 97.3 F 93 28 H 85/42 L 95 05/22/21 14:37 97.3 F 93 28 H 85/42 L 95 *Q Meaningful Use (ADM) - VTE Risk Assess *Q Each Risk Factor Represents 1 Point: Swollen Legs, Current, Obesity ( BMI > 25 kg/m2), Serious lung disease including pneumonia Total Score 1 Point Risk Factors: 3 Each Risk Factor Represents 2 Points: Malignancy (present or previous) Total Score 2 Point Risk Factors: 2 Each Risk Factor Represents 3 Points: Age 75 Years or Greater Total Score 3 Point Risk Factors: 3 Each Risk Factor Represents 5 Points: None Total Score 5 Point Risk Factors: 0 Venous Thromboembolism Risk Factor Score *Q: 8 Problem List Initiated/Reviewed/Updated: Yes Orders Last 24hrs: Active Orders 24 hr Category Date Time Status Patient Status Manage Transfer [TRANSFER] Routine ADT 05/22/21 18:59 Ordered Chest 1V Frontal [CR] Stat Exams 05/22/21 14:52 Taken CULTURE BODY FLUID + SMEAR [RM] Stat Lab 05/22/21 15:26 Results UA W/MICROSCOPIC [URIN] Stat Lab 05/22/21 14:48 Ordered Resuscitation Status Routine Resus Stat 05/22/21 19:02 Ordered Assessment/Plan Comment:: ASSESSMENT AND PLAN PNEUMONIA-she has become progressively more weak with increased shortness of breath and anorexia. Some of this is likely secondary to her progressive lymphoma. White blood cell count is markedly elevated and CT scan shows evidence of infiltrates and consolidation. -Blood and pleural effusion cultures pending -IV fluids for hydration -Broad-spectrum IV antibiotic therapy because of recent medical interventions a nd hospitalization; vancomycin, Zosyn, and levofloxacin, pending culture results EXTENSIVE LYMPHOMA-she is now developed right pleural effusion likely secondary to the lymphoma -Ultrasound of right chest for thoracentesis -Consult Dr. Dowd for thoracentesis -Drain left pleural effusion as needed per Pleurx drain ACUTE KIDNEY INJURY-likely secondary to dehydration and intravascular volume depletion -IV fluids as above -Closely monitor urine output and renal function TYPE 2 DIABETES MELLITUS -Hold glipizide and Metformin because of poor oral intake -4 times daily glucometers -Low-dose sliding scale Humalog MAINTENANCE ISSUES -DVT prophylaxis; Lovenox 40 mg subcu daily -GI prophylaxis; not indicated -Bishop catheter; not indicated -Nutrition; consistent carbohydrate diet -Nicotine dependence; not required CODE STATUS-FULL CODE ADMISSION STATUS-patient will be admitted to inpatient status, expect at least a 2 night hospital stay for evaluation and management of problems as outlined mateus day. At the time of this admission I do not reasonably expected evaluation and management of this problem will require more than a 96 hour hospital stay. DISPOSITION-anticipate discharge to home after the hospital stay. PRIMARY CARE PROVIDER-Dr. Vidal - Mortality Measure Prognosis:: Poor
[2021-05-22] MEDS ORDERED: Sodium Chloride 0.9% 10 ML Syringe FLUSH PRN (19:38)
[2021-05-22] MEDS ORDERED: Ondansetron 4 MG/2 ML SDV IV PRN (19:38)
[2021-05-22] MEDS ORDERED: Sodium Chloride 0.9% 1,000 ML IV SCH (19:38)
[2021-05-22] MEDS ORDERED: Piperacillin/Tazobactam 3.375 GM in Sodium Chloride 0.9% 50 ML IV SCH (19:38)
[2021-05-22] MEDS ORDERED: Glucose Gel 15 GM in 37.5 GM Tube PO PRN (19:38)
[2021-05-22] MEDS ORDERED: 50% Dextrose in Water 50 ML Syringe IV PRN (19:38)
[2021-05-22] MEDS ORDERED: Polyethylene Glycol 3350 Powder 17 GM Packet PO PRN (19:38)
[2021-05-22] MEDS ORDERED: Vancomycin 1 GM SDV IV SCH (20:00)
[2021-05-22] MEDS: Levofloxacin/Dextrose 5%-Water 750 MG in Premix Bag 1 BAG IV SCH (20:36)
[2021-05-22] MEDS: Enoxaparin 30 MG/0.3 ML Syringe SUBCUT SCH (20:49)
[2021-05-22] MEDS: Insulin Lispro 100 Unit/ML 3 ML KwikPen SUBCUT SCH (21:31)
[2021-05-22] MEDS ORDERED: Piperacillin/Tazobactam/Dext 2.25 GM in Premix Bag 1 BAG IV SCH (22:00)
[2021-05-22] MEDS ORDERED: VANCOMYCIN PER PHARMACY SCH (23:00)
[2021-05-23] MEDS ORDERED: Sodium Chloride 0.9% 100 ML ONE (00:40)
[2021-05-23] MEDS ORDERED: Piperacillin/Tazobactam/Dext 2.25 GM in Premix Bag 1 BAG IV SCH (07:00)
[2021-05-23] MEDS: Piperacillin/Tazobactam/Dext 2.25 GM in Premix Bag 1 BAG IV SCH ×3 (08:18→21:08)
[2021-05-23] MEDS: Insulin Lispro 100 Unit/ML 3 ML KwikPen SUBCUT SCH ×4 (08:25→21:12)
[2021-05-23] MEDS: Mineral Oil/Petrolatum/Phenylephrine/Shark Liver Oil Oint 57 GM Tube RECTAL SCH ×2 (10:40→21:11)
[2021-05-23] MEDS: Hydrocortisone 1% Crm 30 GM Tube TOP SCH ×2 (10:41→21:11)
[2021-05-23] MEDS ORDERED: Furosemide 40 MG/4 ML VIAL IVPUSH ONE (10:53)
--- NOTE | 2021-05-23 10:53 | PCM.PN ---
- General Info Date of Service: 05/23/21 Subjective Update: Ms. Centeno to improve this morning following thoracentesis for her right-sided pleural effusion. Plan is to proceed with drainage of the left pleural effusion today from her Pleurx drain. She remains very weak with very poor nutritional status. Vital signs have been stable and she has remained afebrile. White blood cell count has improved from admission but still remains elevated. Functional Status: Reports: Urinating. Denies: Tolerating Diet, Ambulating - Review of Systems General: Reports: Weakness, Fatigue. Denies: Fever, Chills Pulmonary: Reports: Shortness of Breath, Cough. Denies: Pleuritic Chest Pain, Sputum, Hemoptysis, Wheezing Cardiovascular: Reports: Dyspnea on Exertion. Denies: Chest Pain, Palpitations, Orthopnea, PND, Edema, Lightheadedness Gastrointestinal: Reports: No Symptoms Genitourinary: Reports: No Symptoms - Patient Data Vitals - Most Recent: Last Vital Signs Temp 97.5 F 05/23/21 07:44 Pulse 86 05/23/21 09:20 Resp 20 05/23/21 09:20 BP 90/38 L 05/23/21 09:20 Pulse Ox 95 05/23/21 09:20 Weight - Most Recent: 170 lb I&O - Last 24 Hours: Intake & Output 05/22/21 05/23/21 05/23/21 22:59 06:59 14:59 Intake Total 400 865 Output Total 300 Balance 100 865 Lab Results Last 24 Hours: Laboratory Results - last 24 hr 05/22/21 05/22/21 05/22/21 Range/Units 14:59 14:59 14:59 WBC 25.3 H (4.5-11.0) K/uL RBC 4.53 (3.30-5.50) M/uL Hgb 11.4 L (12.0-15.0) g/dL Hct 36.2 (36.0-48.0) % MCV 80 (80-98) fL MCH 25 L (27-31) pg MCHC 32 (32-36) % Plt Count 226 (150-400) K/uL Neut % (Auto) (36-66) % Lymph % (Auto) (24-44) % Hanson % (Auto) (2-6) % Eos % (Auto) (2-4) % Baso % (Auto) (0-1) % Sodium 128 L (140-148) mmol/L Potassium 4.9 (3.6-5.2) mmol/L Chloride 91 L (100-108) mmol/L Carbon Dioxide 32 (21-32) mmol/L Anion Gap 9.9 (5.0-14.0) mmol/L BUN 67 H D (7-18) mg/dL Creatinine 1.9 H D (0.6-1.0) mg/dL Est Cr Clr Drug Dosing TNP Estimated GFR (MDRD) 26 L (>60) Glucose 244 H (74-106) mg/dL POC Glucose (74-106) mg/dL Calcium 8.0 L D (8.5-10.1) mg/dL Magnesium (1.8-2.4) mg/dL Total Bilirubin 0.6 (0.2-1.0) mg/dL AST 25 (15-37) U/L ALT 13 (12-78) U/L Alkaline Phosphatase 87 (46-116) U/L C-Reactive Protein 11.13 H (0.0-0.3) mg/dL Total Protein 4.2 L (6.4-8.2) g/dL Albumin 1.4 L (3.4-5.0) g/dL Globulin 2.8 (2.3-3.5) g/dL Albumin/Globulin Ratio 0.5 L (1.2-2.2) Procalcitonin 0.17 ng/mL Urine Color (YELLOW) Urine Appearance (CLEAR) Urine pH (5.0-8.0) Ur Specific [place] (1.008-1.030) Urine Protein (NEGATIVE) mg/dL Urine Glucose (UA) (NEGATIVE) mg/dL Urine Ketones (NEGATIVE) mg/dL Urine Occult Blood (NEGATIVE) Urine Nitrite (NEGATIVE) Urine Bilirubin (NEGATIVE) Urine Urobilinogen (0.2-1.0) EU/dL Ur Leukocyte Esterase (NEGATIVE) Urine RBC (0-5) Urine WBC (0-5) Ur Epithelial Cells Amorphous Sediment Urine Bacteria Urine Mucus SARS-CoV-2 RNA (CLARI) (NEGATIVE) 05/22/21 05/22/21 05/22/21 Range/Units 17:59 20:59 22:03 WBC (4.5-11.0) K/uL RBC (3.30-5.50) M/uL Hgb (12.0-15.0) g/dL Hct (36.0-48.0) % MCV (80-98) fL MCH (27-31) pg MCHC (32-36) % Plt Count (150-400) K/uL Neut % (Auto) (36-66) % Lymph % (Auto) (24-44) % Hanson % (Auto) (2-6) % Eos % (Auto) (2-4) % Baso % (Auto) (0-1) % Sodium (140-148) mmol/L Potassium (3.6-5.2) mmol/L Chloride (100-108) mmol/L Carbon Dioxide (21-32) mmol/L Anion Gap (5.0-14.0) mmol/L BUN (7-18) mg/dL Creatinine (0.6-1.0) mg/dL Est Cr Clr Drug Dosing Estimated GFR (MDRD) (>60) Glucose (74-106) mg/dL POC Glucose 167 H (74-106) mg/dL Calcium (8.5-10.1) mg/dL Magnesium (1.8-2.4) mg/dL Total Bilirubin (0.2-1.0) mg/dL AST (15-37) U/L ALT (12-78) U/L Alkaline Phosphatase (46-116) U/L C-Reactive Protein (0.0-0.3) mg/dL Total Protein (6.4-8.2) g/dL Albumin (3.4-5.0) g/dL Globulin (2.3-3.5) g/dL Albumin/Globulin Ratio (1.2-2.2) Procalcitonin ng/mL Urine Color Yellow (YELLOW) Urine Appearance Clear (CLEAR) Urine pH 7.0 (5.0-8.0) Ur Specific [place] 1.015 (1.008-1.030) Urine Protein Negative (NEGATIVE) mg/dL Urine Glucose (UA) Negative (NEGATIVE) mg/dL Urine Ketones Negative (NEGATIVE) mg/dL Urine Occult Blood Negative (NEGATIVE) Urine Nitrite Negative (NEGATIVE) Urine Bilirubin Negative (NEGATIVE) Urine Urobilinogen 1.0 (0.2-1.0) EU/dL Ur Leukocyte Esterase Negative (NEGATIVE) Urine RBC 0-5 (0-5) Urine WBC 0-5 (0-5) Ur Epithelial Cells Rare Amorphous Sediment Not seen Urine Bacteria Rare Urine Mucus Not seen SARS-CoV-2 RNA (CLARI) Negative (NEGATIVE) 05/23/21 05/23/21 05/23/21 Range/Units 04:35 04:35 07:28 WBC 19.5 H (4.5-11.0) K/uL RBC 4.19 (3.30-5.50) M/uL Hgb 10.7 L (12.0-15.0) g/dL Hct 33.8 L (36.0-48.0) % MCV 81 (80-98) fL MCH 26 L (27-31) pg MCHC 32 (32-36) % Plt Count 214 (150-400) K/uL Neut % (Auto) 95.7 H (36-66) % Lymph % (Auto) 1.0 L (24-44) % Hanson % (Auto) 2.7 (2-6) % Eos % (Auto) 0.5 L (2-4) % Baso % (Auto) 0.1 (0-1) % Sodium 131 L (140-148) mmol/L Potassium 4.7 (3.6-5.2) mmol/L Chloride 97 L (100-108) mmol/L Carbon Dioxide 31 (21-32) mmol/L Anion Gap 7.7 (5.0-14.0) mmol/L BUN 53 H (7-18) mg/dL Creatinine 1.6 H (0.6-1.0) mg/dL Est Cr Clr Drug Dosing 21.15 Estimated GFR (MDRD) 31 L (>60) Glucose 73 L (74-106) mg/dL POC Glucose 66 L (74-106) mg/dL Calcium 7.5 L (8.5-10.1) mg/dL Magnesium 1.9 (1.8-2.4) mg/dL Total Bilirubin 0.4 (0.2-1.0) mg/dL AST 27 (15-37) U/L ALT 13 (12-78) U/L Alkaline Phosphatase 80 (46-116) U/L C-Reactive Protein (0.0-0.3) mg/dL Total Protein 3.9 L (6.4-8.2) g/dL Albumin 1.1 L (3.4-5.0) g/dL Globulin 2.8 (2.3-3.5) g/dL Albumin/Globulin Ratio 0.4 L (1.2-2.2) Procalcitonin ng/mL Urine Color (YELLOW) Urine Appearance (CLEAR) Urine pH (5.0-8.0) Ur Specific [place] (1.008-1.030) Urine Protein (NEGATIVE) mg/dL Urine Glucose (UA) (NEGATIVE) mg/dL Urine Ketones (NEGATIVE) mg/dL Urine Occult Blood (NEGATIVE) Urine Nitrite (NEGATIVE) Urine Bilirubin (NEGATIVE) Urine Urobilinogen (0.2-1.0) EU/dL Ur Leukocyte Esterase (NEGATIVE) Urine RBC (0-5) Urine WBC (0-5) Ur Epithelial Cells Amorphous Sediment Urine Bacteria Urine Mucus SARS-CoV-2 RNA (CLARI) (NEGATIVE) 05/23/21 Range/Units 08:34 WBC (4.5-11.0) K/uL RBC (3.30-5.50) M/uL Hgb (12.0-15.0) g/dL Hct (36.0-48.0) % MCV (80-98) fL MCH (27-31) pg MCHC (32-36) % Plt Count (150-400) K/uL Neut % (Auto) (36-66) % Lymph % (Auto) (24-44) % Hanson % (Auto) (2-6) % Eos % (Auto) (2-4) % Baso % (Auto) (0-1) % Sodium (140-148) mmol/L Potassium (3.6-5.2) mmol/L Chloride (100-108) mmol/L Carbon Dioxide (21-32) mmol/L Anion Gap (5.0-14.0) mmol/L BUN (7-18) mg/dL Creatinine (0.6-1.0) mg/dL Est Cr Clr Drug Dosing Estimated GFR (MDRD) (>60) Glucose (74-106) mg/dL POC Glucose 92 (74-106) mg/dL Calcium (8.5-10.1) mg/dL Magnesium (1.8-2.4) mg/dL Total Bilirubin (0.2-1.0) mg/dL AST (15-37) U/L ALT (12-78) U/L Alkaline Phosphatase (46-116) U/L C-Reactive Protein (0.0-0.3) mg/dL Total Protein (6.4-8.2) g/dL Albumin (3.4-5.0) g/dL Globulin (2.3-3.5) g/dL Albumin/Globulin Ratio (1.2-2.2) Procalcitonin ng/mL Urine Color (YELLOW) Urine Appearance (CLEAR) Urine pH (5.0-8.0) Ur Specific [place] (1.008-1.030) Urine Protein (NEGATIVE) mg/dL Urine Glucose (UA) (NEGATIVE) mg/dL Urine Ketones (NEGATIVE) mg/dL Urine Occult Blood (NEGATIVE) Urine Nitrite (NEGATIVE) Urine Bilirubin (NEGATIVE) Urine Urobilinogen (0.2-1.0) EU/dL Ur Leukocyte Esterase (NEGATIVE) Urine RBC (0-5) Urine WBC (0-5) Ur Epithelial Cells Amorphous Sediment Urine Bacteria Urine Mucus SARS-CoV-2 RNA (CLARI) (NEGATIVE) Martin Results Last 24 Hours: Microbiology 05/23/21 07:31 MANDI Preparation - Final Other - Other 05/23/21 07:31 Gram Stain - Final Thoracentesis Fluid - Right 05/22/21 15:26 Gram Stain - Final Pleural Fluid - Pleural Cavity, Left Aerobic Culture - Final Anaerobic Culture - Final Med Orders - Current: Current Medications Acetaminophen (Acetaminophen 325 Mg Tab) 650 mg PO Q4H PRN PRN Reason: Pain (Mild 1-3)/fever Aspirin (Aspirin 81 Mg Tab.Ec) 81 mg PO DAILY [facility] Dextrose (Glucose Gel 15 Gm In 37.5 Gm Tube) 15 gm PO ONETIME PRN PRN Reason: Hypoglycemia Dextrose/Water (50% Dextrose In Water 50 Ml Syringe) 50 ml IV ONETIME PRN PRN Reason: Hypoglycemia Enoxaparin Sodium (Enoxaparin 30 Mg/0.3 Ml Syringe) 30 mg SUBCUT BEDTIME [facility] Last Admin: 05/22/21 20:49 Dose: 30 mg Documented by: Hydrocortisone (Hydrocortisone 1% Crm 30 Gm Tube) 0 gm TOP BID THIAGO Levofloxacin/Dextrose 750 mg/ (Premix) 150 mls @ 100 mls/hr IV Q48H [facility] Last Admin: 05/22/21 20:36 Dose: 100 mls/hr Documented by: Vancomycin HCl 1 gm/ Sodium (Chloride) 250 mls @ 166.667 mls/hr IV Q24H [facility] Last Admin: 05/22/21 22:29 Dose: 166.667 mls/hr Documented by: Piperacillin/Tazobactam/ (Dextrose 2.25 gm/ Premix) 50 mls @ 100 mls/hr IV Q6H [facility] Last Admin: 05/23/21 08:18 Dose: 100 mls/hr Documented by: Sodium Chloride (Normal Saline) 1,000 mls @ 50 mls/hr IV ASDIRECTED [facility] Insulin Human Lispro (Insulin Lispro 100 Unit/Ml 3 Ml Kwikpen) 0 unit SUBCUT QIDACANDBED [facility]; Protocol Last Admin: 05/23/21 08:25 Dose: Not Given Documented by: Lisinopril (Lisinopril 10 Mg Tab) 10 mg PO DAILY [facility] Lovastatin (Lovastatin 20 Mg Tab) 20 mg PO DAILY [facility] Multivitamins/Minerals (Multivitamins With Iron/Calcium/Folic Acid/Minerals Tab) 1 tab PO DAILY [facility] Ondansetron HCl (Ondansetron 4 Mg/2 Ml Sdv) 4 mg IV Q4H PRN PRN Reason: Nausea/Vomiting Oxycodone HCl (Oxycodone 5 Mg Tab) 5 mg PO Q4H PRN PRN Reason: Pain (moderate 4-6) Phenyleph/Shark Oil/Min Oil/Petrol (Mineral Oil/Petrolatum/Phenylephrine/Shark L iver Oil Oint 57 Gm Tube) 0 gm RECTAL BID [facility] Polyethylene Glycol (Polyethylene Glycol 3350 Powder 17 Gm Packet) 17 gm PO DAILY PRN PRN Reason: Constipation Sodium Chloride (Sodium Chloride 0.9% 10 Ml Syringe) 10 ml FLUSH ASDIRECTED PRN PRN Reason: Keep Vein Open Discontinued Medications Sodium Chloride (Normal Saline) 1,000 mls @ 1,000 mls/hr IV .BOLUS ONE Stop: 05/22/21 16:38 Last Admin: 05/22/21 16:07 Dose: 1,000 mls/hr Documented by: Sodium Chloride (Normal Saline) 1,000 mls @ 1,000 mls/hr IV .BOLUS ONE Stop: 05/22/21 18:33 Last Admin: 05/22/21 17:39 Dose: 1,000 mls/hr Documented by: Sodium Chloride (Normal Saline) 1,000 mls @ 125 mls/hr IV ASDIRECTED [facility] Last Admin: 05/22/21 22:32 Dose: 125 mls/hr Documented by: Piperacillin/Tazobactam/ (Dextrose 2.25 gm/ Premix) 50 mls @ 100 mls/hr IV Q6H [facility] Last Admin: 05/23/21 00:47 Dose: 100 mls/hr Documented by: Sodium Chloride (Normal Saline) Confirm Administered Dose 100 mls @ as directed .ROUTE .STK-MED ONE Stop: 05/23/21 00:41 Last Admin: 05/23/21 00:48 Dose: Not Given Documented by: Pharmacy Consult (Vancomycin Per Pharmacy) 1 each .XX ASDIRECTED [facility] Stop: 05/23/21 07:30 Vancomycin HCl (Vancomycin 1 Gm Sdv) 1 gm IV .PHARMACY TO DOSE THIAGO - Exam Quality Assessment: Supplemental Oxygen, DVT Prophylaxis General: Alert, Oriented, Cooperative, Moderate Distress Lungs: Clear to Auscultation, Normal Respiratory Effort, Decreased Breath Sounds. No: Rales, Rhonchi, Wheezing Cardiovascular: Regular Rate, Regular Rhythm, No Murmurs GI/Abdominal Exam: Soft, Non-Tender, No Organomegaly, No Distention Extremities: Non-Tender, Pedal Edema - Patient Data Lab Results Last 24 hrs: Laboratory Results - last 24 hr 05/22/21 05/22/21 05/22/21 Range/Units 14:59 14:59 14:59 WBC 25.3 H (4.5-11.0) K/uL RBC 4.53 (3.30-5.50) M/uL Hgb 11.4 L (12.0-15.0) g/dL Hct 36.2 (36.0-48.0) % MCV 80 (80-98) fL MCH 25 L (27-31) pg MCHC 32 (32-36) % Plt Count 226 (150-400) K/uL Neut % (Auto) (36-66) % Lymph % (Auto) (24-44) % Hanson % (Auto) (2-6) % Eos % (Auto) (2-4) % Baso % (Auto) (0-1) % Sodium 128 L (140-148) mmol/L Potassium 4.9 (3.6-5.2) mmol/L Chloride 91 L (100-108) mmol/L Carbon Dioxide 32 (21-32) mmol/L Anion Gap 9.9 (5.0-14.0) mmol/L BUN 67 H D (7-18) mg/dL Creatinine 1.9 H D (0.6-1.0) mg/dL Est Cr Clr Drug Dosing TNP Estimated GFR (MDRD) 26 L (>60) Glucose 244 H (74-106) mg/dL POC Glucose (74-106) mg/dL Calcium 8.0 L D (8.5-10.1) mg/dL Magnesium (1.8-2.4) mg/dL Total Bilirubin 0.6 (0.2-1.0) mg/dL AST 25 (15-37) U/L ALT 13 (12-78) U/L Alkaline Phosphatase 87 (46-116) U/L C-Reactive Protein 11.13 H (0.0-0.3) mg/dL Total Protein 4.2 L (6.4-8.2) g/dL Albumin 1.4 L (3.4-5.0) g/dL Globulin 2.8 (2.3-3.5) g/dL Albumin/Globulin Ratio 0.5 L (1.2-2.2) Procalcitonin 0.17 ng/mL Urine Color (YELLOW) Urine Appearance (CLEAR) Urine pH (5.0-8.0) Ur Specific [place] (1.008-1.030) Urine Protein (NEGATIVE) mg/dL Urine Glucose (UA) (NEGATIVE) mg/dL Urine Ketones (NEGATIVE) mg/dL Urine Occult Blood (NEGATIVE) Urine Nitrite (NEGATIVE) Urine Bilirubin (NEGATIVE) Urine Urobilinogen (0.2-1.0) EU/dL Ur Leukocyte Esterase (NEGATIVE) Urine RBC (0-5) Urine WBC (0-5) Ur Epithelial Cells Amorphous Sediment Urine Bacteria Urine Mucus SARS-CoV-2 RNA (CLARI) (NEGATIVE) 05/22/21 05/22/21 05/22/21 Range/Units 17:59 20:59 22:03 WBC (4.5-11.0) K/uL RBC (3.30-5.50) M/uL Hgb (12.0-15.0) g/dL Hct (36.0-48.0) % MCV (80-98) fL MCH (27-31) pg MCHC (32-36) % Plt Count (150-400) K/uL Neut % (Auto) (36-66) % Lymph % (Auto) (24-44) % Hanson % (Auto) (2-6) % Eos % (Auto) (2-4) % Baso % (Auto) (0-1) % Sodium (140-148) mmol/L Potassium (3.6-5.2) mmol/L Chloride (100-108) mmol/L Carbon Dioxide (21-32) mmol/L Anion Gap (5.0-14.0) mmol/L BUN (7-18) mg/dL Creatinine (0.6-1.0) mg/dL Est Cr Clr Drug Dosing Estimated GFR (MDRD) (>60) Glucose (74-106) mg/dL POC Glucose 167 H (74-106) mg/dL Calcium (8.5-10.1) mg/dL Magnesium (1.8-2.4) mg/dL Total Bilirubin (0.2-1.0) mg/dL AST (15-37) U/L ALT (12-78) U/L Alkaline Phosphatase (46-116) U/L C-Reactive Protein (0.0-0.3) mg/dL Total Protein (6.4-8.2) g/dL Albumin (3.4-5.0) g/dL Globulin (2.3-3.5) g/dL Albumin/Globulin Ratio (1.2-2.2) Procalcitonin ng/mL Urine Color Yellow (YELLOW) Urine Appearance Clear (CLEAR) Urine pH 7.0 (5.0-8.0) Ur Specific [place] 1.015 (1.008-1.030) Urine Protein Negative (NEGATIVE) mg/dL Urine Glucose (UA) Negative (NEGATIVE) mg/dL Urine Ketones Negative (NEGATIVE) mg/dL Urine Occult Blood Negative (NEGATIVE) Urine Nitrite Negative (NEGATIVE) Urine Bilirubin Negative (NEGATIVE) Urine Urobilinogen 1.0 (0.2-1.0) EU/dL Ur Leukocyte Esterase Negative (NEGATIVE) Urine RBC 0-5 (0-5) Urine WBC 0-5 (0-5) Ur Epithelial Cells Rare Amorphous Sediment Not seen Urine Bacteria Rare Urine Mucus Not seen SARS-CoV-2 RNA (CLARI) Negative (NEGATIVE) 05/23/21 05/23/21 05/23/21 Range/Units 04:35 04:35 07:28 WBC 19.5 H (4.5-11.0) K/uL RBC 4.19 (3.30-5.50) M/uL Hgb 10.7 L (12.0-15.0) g/dL Hct 33.8 L (36.0-48.0) % MCV 81 (80-98) fL MCH 26 L (27-31) pg MCHC 32 (32-36) % Plt Count 214 (150-400) K/uL Neut % (Auto) 95.7 H (36-66) % Lymph % (Auto) 1.0 L (24-44) % Hanson % (Auto) 2.7 (2-6) % Eos % (Auto) 0.5 L (2-4) % Baso % (Auto) 0.1 (0-1) % Sodium 131 L (140-148) mmol/L Potassium 4.7 (3.6-5.2) mmol/L Chloride 97 L (100-108) mmol/L Carbon Dioxide 31 (21-32) mmol/L Anion Gap 7.7 (5.0-14.0) mmol/L BUN 53 H (7-18) mg/dL Creatinine 1.6 H (0.6-1.0) mg/dL Est Cr Clr Drug Dosing 21.15 Estimated GFR (MDRD) 31 L (>60) Glucose 73 L (74-106) mg/dL POC Glucose 66 L (74-106) mg/dL Calcium 7.5 L (8.5-10.1) mg/dL Magnesium 1.9 (1.8-2.4) mg/dL Total Bilirubin 0.4 (0.2-1.0) mg/dL AST 27 (15-37) U/L ALT 13 (12-78) U/L Alkaline Phosphatase 80 (46-116) U/L C-Reactive Protein (0.0-0.3) mg/dL Total Protein 3.9 L (6.4-8.2) g/dL Albumin 1.1 L (3.4-5.0) g/dL Globulin 2.8 (2.3-3.5) g/dL Albumin/Globulin Ratio 0.4 L (1.2-2.2) Procalcitonin ng/mL Urine Color (YELLOW) Urine Appearance (CLEAR) Urine pH (5.0-8.0) Ur Specific [place] (1.008-1.030) Urine Protein (NEGATIVE) mg/dL Urine Glucose (UA) (NEGATIVE) mg/dL Urine Ketones (NEGATIVE) mg/dL Urine Occult Blood (NEGATIVE) Urine Nitrite (NEGATIVE) Urine Bilirubin (NEGATIVE) Urine Urobilinogen (0.2-1.0) EU/dL Ur Leukocyte Esterase (NEGATIVE) Urine RBC (0-5) Urine WBC (0-5) Ur Epithelial Cells Amorphous Sediment Urine Bacteria Urine Mucus SARS-CoV-2 RNA (CLARI) (NEGATIVE) 05/23/21 Range/Units 08:34 WBC (4.5-11.0) K/uL RBC (3.30-5.50) M/uL Hgb (12.0-15.0) g/dL Hct (36.0-48.0) % MCV (80-98) fL MCH (27-31) pg MCHC (32-36) % Plt Count (150-400) K/uL Neut % (Auto) (36-66) % Lymph % (Auto) (24-44) % Hanson % (Auto) (2-6) % Eos % (Auto) (2-4) % Baso % (Auto) (0-1) % Sodium (140-148) mmol/L Potassium (3.6-5.2) mmol/L Chloride (100-108) mmol/L Carbon Dioxide (21-32) mmol/L Anion Gap (5.0-14.0) mmol/L BUN (7-18) mg/dL Creatinine (0.6-1.0) mg/dL Est Cr Clr Drug Dosing Estimated GFR (MDRD) (>60) Glucose (74-106) mg/dL POC Glucose 92 (74-106) mg/dL Calcium (8.5-10.1) mg/dL Magnesium (1.8-2.4) mg/dL Total Bilirubin (0.2-1.0) mg/dL AST (15-37) U/L ALT (12-78) U/L Alkaline Phosphatase (46-116) U/L C-Reactive Protein (0.0-0.3) mg/dL Total Protein (6.4-8.2) g/dL Albumin (3.4-5.0) g/dL Globulin (2.3-3.5) g/dL Albumin/Globulin Ratio (1.2-2.2) Procalcitonin ng/mL Urine Color (YELLOW) Urine Appearance (CLEAR) Urine pH (5.0-8.0) Ur Specific [place] (1.008-1.030) Urine Protein (NEGATIVE) mg/dL Urine Glucose (UA) (NEGATIVE) mg/dL Urine Ketones (NEGATIVE) mg/dL Urine Occult Blood (NEGATIVE) Urine Nitrite (NEGATIVE) Urine Bilirubin (NEGATIVE) Urine Urobilinogen (0.2-1.0) EU/dL Ur Leukocyte Esterase (NEGATIVE) Urine RBC (0-5) Urine WBC (0-5) Ur Epithelial Cells Amorphous Sediment Urine Bacteria Urine Mucus SARS-CoV-2 RNA (CLARI) (NEGATIVE) Result Diagrams: 05/23/21 04:35 05/23/21 04:35 Martin Results Last 24 hrs: Microbiology 05/23/21 07:31 MANDI Preparation - Final Other - Other 05/23/21 07:31 Gram Stain - Final Thoracentesis Fluid - Right 05/22/21 15:26 Gram Stain - Final Pleural Fluid - Pleural Cavity, Left Aerobic Culture - Final Anaerobic Culture - Final Sepsis Event Note - Evaluation Sepsis Screening Result: Possible Sepsis Risk - Focused Exam Vital Signs: Vital Signs Temp Pulse Resp BP Pulse Ox 05/23/21 09:20 86 20 90/38 L 95 05/23/21 08:24 90 18 90/30 L 95 05/23/21 08:01 95 96 05/23/21 07:48 90 21 H 92/42 L 95 05/23/21 07:44 97.5 F 89 20 90/36 L 94 L 05/23/21 07:05 85 20 95 05/23/21 07:00 80 20 96 05/23/21 03:00 97.4 F 94 16 112/46 L 95 05/23/21 01:46 97 05/23/21 00:56 97.7 F 87 20 98/59 L 97 - Problem List Review Problem List Initiated/Reviewed/Updated: Yes - My Orders Last 24 Hours: My Active Orders 05/22/21 Dinner Consistent Carbohydrate Diet [DIET] 05/22/21 19:02 Resuscitation Status Routine 05/22/21 19:38 Acetaminophen [TylenoL] 650 mg PO Q4H PRN Dextrose 50% in Water 50 ml IV ONETIME PRN Dextrose [Glutose 15] 15 gm PO ONETIME PRN Ondansetron [Zofran] 4 mg IV Q4H PRN Sodium Chloride 0.9% [Saline Flush] 10 ml FLUSH ASDIRECTED PRN oxyCODONE 5 mg PO Q4H PRN polyethylene glycoL 3350 [MiraLAX] 17 gm PO DAILY PRN 05/22/21 19:38 Patient Status [ADT] Routine Ambulate [RC] QID Height and Weight [RC] DAILY Intake and Output [RC] QSHIFT Notify Provider Consults [RC] ASDIRECTED Notify Provider Vital Signs [RC] ASDIRECTED Notify Provider [RC] PRN Oxygen Therapy [RC] PRN Peripheral IV Care [RC] . DIRECTED Pulse Oximetry [RC] CONTINUOUS Up With Assistance [RC] ASDIRECTED Up to Chair [RC] QID Vital Signs [RC] Q4H Consult to Physician [CONS] Routine Blood Culture x2 Reflex Set [OM.PC] Stat Peripheral IV Insertion Adult [OM.PC] Routine 05/22/21 20:00 CULTURE BLOOD [BC] Stat Insulin Lispro [HumaLOG] See Protocol SUBCUT QIDACANDBED Levofloxacin/Dextrose 5%-Water [Levaquin in D5W 750 MG/150 ML] 750 mg Premix Bag 1 bag IV Q48H 05/22/21 20:15 CULTURE BLOOD [BC] Stat 05/22/21 21:00 Enoxaparin [Lovenox] 30 mg SUBCUT BEDTIME 05/22/21 22:03 CULTURE URINE [RM] Stat 05/22/21 23:00 Vancomycin 1 gm Sodium Chloride 0.9% [Normal Saline] 250 ml IV Q24H 05/23/21 06:30 US Guidance Thoracentesis NC [US] Stat 05/23/21 07:31 CULTURE BODY FLUID + SMEAR [RM] Routine CULTURE FUNGAL [MYC] Routine 05/23/21 08:00 Piperacillin/Tazobactam/Dext [Zosyn in Dextrose Iso-Osmotic 2.25 GM/50 ML] 2.25 gm Premix Bag 1 bag IV Q6H 05/23/21 09:00 Aspirin [Halfprin] 81 mg PO DAILY Lovastatin [Mevacor] 20 mg PO DAILY Multivitamins w-Iron/Ca/FA/Min [Thera M Plus] 1 tab PO DAILY lisinopriL [Prinivil] 10 mg PO DAILY 05/23/21 09:46 Dietary Supplements [RC] WITHMEALSANDBED SHEEBA Bandage [Elastic Wrap] [OM.PC] Routine 05/23/21 09:48 OT Evaluation and Treatment [CONS] Routine PT Evaluation and Treatment [CONS] Routine 05/23/21 11:00 Sodium Chloride 0.9% @ 50 MLS/HR(1000ml) Sodium Chloride 0.9% [Normal Saline] 1,000 ml IV ASDIRECTED 05/23/21 11:30 GLUCOSE POC LAB TO COLLECT JPM [POC] QIDACANDBED 05/23/21 16:30 GLUCOSE POC LAB TO COLLECT JPM [POC] QIDACANDBED 05/23/21 21:00 GLUCOSE POC LAB TO COLLECT JPM [POC] QIDACANDBED 05/24/21 05:00 BASIC METABOLIC PANEL,BMP [CHEM] Timed CBC WITH AUTO DIFF [HEME] Timed 05/24/21 07:30 GLUCOSE POC LAB TO COLLECT JPM [POC] QIDACANDBED 05/24/21 11:30 GLUCOSE POC LAB TO COLLECT JPM [POC] QIDACANDBED 05/24/21 16:30 GLUCOSE POC LAB TO COLLECT JPM [POC] QIDACANDBED 05/24/21 21:00 GLUCOSE POC LAB TO COLLECT JPM [POC] QIDACANDBED 05/25/21 07:30 GLUCOSE POC LAB TO COLLECT JPM [POC] QIDACANDBED 05/25/21 11:30 GLUCOSE POC LAB TO COLLECT JPM [POC] QIDACANDBED 05/25/21 16:30 GLUCOSE POC LAB TO COLLECT JPM [POC] QIDACANDBED 05/25/21 21:00 GLUCOSE POC LAB TO COLLECT JPM [POC] QIDACANDBED 05/26/21 07:30 GLUCOSE POC LAB TO COLLECT JPM [POC] QIDACANDBED 05/26/21 11:30 GLUCOSE POC LAB TO COLLECT JPM [POC] QIDACANDBED 05/26/21 16:30 GLUCOSE POC LAB TO COLLECT JPM [POC] QIDACANDBED 05/26/21 21:00 GLUCOSE POC LAB TO COLLECT JPM [POC] QIDACANDBED 05/26/21 22:00 VANCOMYCIN TROUGH [CHEM] Timed 05/27/21 07:30 GLUCOSE POC LAB TO COLLECT JPM [POC] QIDACANDBED 05/27/21 11:30 GLUCOSE POC LAB TO COLLECT JPM [POC] QIDACANDBED 05/27/21 16:30 GLUCOSE POC LAB TO COLLECT JPM [POC] QIDACANDBED - Plan Plan:: ASSESSMENT AND PLAN PNEUMONIA-she has become progressively more weak with increased shortness of breath and anorexia. Some of this is likely secondary to her progressive lymphoma. White blood cell count is markedly elevated and CT scan shows evidence of infiltrates and consolidation. -Blood and pleural effusion cultures pending -IV fluids for hydration, decrease rate to 50 cc/h -Broad-spectrum IV antibiotic therapy because of recent medical interventions and hospitalization; vancomycin, Zosyn, and levofloxacin, pending culture results EXTENSIVE LYMPHOMA-she is now developed right pleural effusion likely secondary to the lymphoma. Status post thoracentesis of right pleural effusion earlier this morning by Dr. Dowd. We will remove fluid from the left chest today via her Pleurx drain -Surgical follow-up per Dr. Dowd -Drain left pleural effusion as needed per Pleurx drain ACUTE KIDNEY INJURY-likely secondary to dehydration and intravascular volume depletion. Renal function has improved from admission -IV fluids as above -Closely monitor urine output and renal function TYPE 2 DIABETES MELLITUS -Hold glipizide and Metformin because of poor oral intake -4 times daily glucometers -Low-dose sliding scale Humalog MALNUTRITION-likely secondary to very poor oral intake -Nutritional supplements several times a day GENERALIZED WEAKNESS-secondary to progressive lymphoma and current pneumonia -Physical therapy consult when available on Monday MAINTENANCE ISSUES -DVT prophylaxis; Lovenox 40 mg subcu daily -GI prophylaxis; not indicated -Bishop catheter; not indicated -Nutrition; consistent carbohydrate diet -Nicotine dependence; not required CODE STATUS-FULL CODE ADMISSION STATUS-patient will be admitted to inpatient status, expect at least a 2 night hospital stay for evaluation and management of problems as outlined above. At the time of this admission I do not reasonably expected evaluation an d management of this problem will require more than a 96 hour hospital stay. DISPOSITION-anticipate discharge to home after the hospital stay. PRIMARY CARE PROVIDER-Dr. Vidal
[2021-05-23] MEDS: Lisinopril 10 MG Tab PO SCH (11:06)
[2021-05-23] MEDS: Aspirin 81 MG Tab.EC PO SCH (11:10)
[2021-05-23] MEDS: Multivitamins with Iron/Calcium/Folic Acid/Minerals Tab PO SCH (11:10)
[2021-05-23] MEDS: Acetaminophen 325 MG Tab PO PRN ×3 (11:40→21:45)
[2021-05-23] MEDS: oxyCODONE 5 MG Tab PO PRN ×2 (11:40→21:46)
[2021-05-23] MEDS: Sodium Chloride 0.9% 1,000 ML IV SCH (14:23)
[2021-05-23] MEDS: Enoxaparin 30 MG/0.3 ML Syringe SUBCUT SCH (21:11)
[2021-05-23] MEDS: Vancomycin 1.2 GM in Sodium Chloride 0.9% 250 ML IV SCH (22:55)
[2021-05-24] MEDS: Piperacillin/Tazobactam/Dext 2.25 GM in Premix Bag 1 BAG IV SCH ×3 (02:53→14:01)
[2021-05-24] MEDS: Insulin Lispro 100 Unit/ML 3 ML KwikPen SUBCUT SCH ×4 (07:28→21:16)
[2021-05-24] MEDS: Hydrocortisone 1% Crm 30 GM Tube TOP SCH ×2 (09:15→21:15)
[2021-05-24] MEDS: Mineral Oil/Petrolatum/Phenylephrine/Shark Liver Oil Oint 57 GM Tube RECTAL SCH ×2 (09:15→21:16)
[2021-05-24] MEDS: Lisinopril 10 MG Tab PO SCH (09:18)
[2021-05-24] MEDS: Aspirin 81 MG Tab.EC PO SCH (09:18)
[2021-05-24] MEDS: Multivitamins with Iron/Calcium/Folic Acid/Minerals Tab PO SCH (09:18)
[2021-05-24] MEDS: Acetaminophen 325 MG Tab PO PRN ×2 (09:42→19:38)
[2021-05-24] MEDS: Sodium Chloride 0.9% 1,000 ML IV SCH (11:01)
--- NOTE | 2021-05-24 12:21 | CR ---
CHEST: Portable 05/22/2021 at 8:20 PM CLINICAL HISTORY:Bilateral effusions COMPARISON:05/06/2021 FINDINGS: Patient has had interval placement of left chest tube. There is also a left-sided Ulebam-c-Kbuj catheter. The left brachiocephalic vein is low in position. This is exaggerated by technique and position. There are moderate bilateral pleural effusions left greater than right. Impression: Bilateral pleural effusions left greater than right Left chest tube in the left subclavian Twzmpo-s-Sioa catheter in place
--- NOTE | 2021-05-24 13:07 | OR ---
DATE OF PROCEDURE: 05/23/2021 SURGEON: Yvon Dowd MD PREOPERATIVE DIAGNOSIS: Right pleural effusion. POSTOPERATIVE DIAGNOSES: Chylous right pleural effusion. OPERATIVE PROCEDURE: Ultrasound-guided right thoracentesis. INDICATIONS FOR PROCEDURE: The patient presents with some ongoing shortness breath and essentially moderately-sized right pleural effusion. She has a PleurX catheter on the left side for recurrent pleural effusion as well. Plan is to proceed with ultrasound-guided right thoracentesis. Potential risks including bleeding, infection, or pneumothorax or such were reviewed, and the patient wishes to proceed. DETAILS OF PROCEDURE: In the hospital bed, the patient was placed in the supine position. The right posterolateral chest wall was marked with ultrasound for adequate site for thoracentesis. That area was prepped and draped and anesthetized with 1% lidocaine mixed with Marcaine, and the thoracentesis catheter placed, and 900 mL of chylous-appearing fluid was removed. As much fluid as possible was removed, and the catheter removed. Chest x-ray is pending. There were no evident complications. Yvon Dowd MD /[id number]
--- NOTE | 2021-05-24 13:21 | CR ---
CHEST: Portable 05/23/2021 at 741 CLINICAL HISTORY:Thoracentesis COMPARISON:05/22/2021 FINDINGS: Left chest tube remains in place. There is persistent volume loss at the left lung base. Aelpjx-q-Vszu catheter is seen from the left subclavian approach. There is a small right pleural effusion. Impression: Left chest tube and Kwffze-h-Bndv catheter remain in place Left pleural effusion and left lower lobe airspace disease. Small right effusion
--- NOTE | 2021-05-24 13:28 | CR ---
CHEST: Portable 05/24/2021 at 5:11 AM CLINICAL HISTORY:Follow-up pleural effusion COMPARISON:05/23 FINDINGS: Left chest tube and left subclavian Rqjutu-n-Wzbx catheter remain in place. There is a moderate left pleural effusion and left lower lobe airspace disease. There is a small right pleural effusion as well as increasing right lower lobe airspace disease. There is some loculation of fluid in the left lateral aspect which is new since prior study. IMPRESSION: Left chest tube remains in place. There is left pleural effusion. There is now some loculation of pleural fluid in the left apex Increasing right lower lobe airspace disease with small right effusion
[2021-05-24] MEDS ORDERED: Bisacodyl 10 MG Supp RECTAL ONE (14:39)
--- NOTE | 2021-05-24 14:40 | PCM.PN ---
- General Info Date of Service: 05/24/21 Subjective Update: No acute events overnight. Patient does report some improvement in her ability to get in food and fluids but mostly dietary supplements. She thinks her strength is a little better and she has been able to get to the bathroom and back with one assist. She has not had a bowel movement in about 1 week despite aggressive bowel stimulation the past couple of days. She does not report abdominal pain but feels full and bloated. She reports minimal shortness of breath that is better than yesterday. No chest pain. Functional Status: Reports: Pain Controlled, Tolerating Diet - Review of Systems Gastrointestinal: Reports: Constipation - Patient Data Vitals - Most Recent: Last Vital Signs Temp 36.8 C 05/24/21 10:57 Pulse 94 05/24/21 10:57 Resp 18 05/24/21 10:57 BP 94/38 L 05/24/21 10:57 Pulse Ox 96 05/24/21 11:59 Weight - Most Recent: 77.111 kg I&O - Last 24 Hours: Intake & Output 05/23/21 05/24/21 05/24/21 22:59 06:59 14:59 Intake Total 420 1433 560 Output Total 1350 225 400 Balance -930 1208 160 Lab Results Last 24 Hours: Laboratory Results - last 24 hr 05/23/21 05/23/21 05/24/21 Range/Units 16:29 20:55 04:25 WBC 23.9 H (4.5-11.0) K/uL RBC 4.04 (3.30-5.50) M/uL Hgb 10.4 L (12.0-15.0) g/dL Hct 33.0 L (36.0-48.0) % MCV 82 (80-98) fL MCH 26 L (27-31) pg MCHC 32 (32-36) % Plt Count 216 (150-400) K/uL Neut % (Auto) 96.3 H (36-66) % Lymph % (Auto) 1.0 L (24-44) % Ness % (Auto) 2.2 (2-6) % Eos % (Auto) 0.5 L (2-4) % Baso % (Auto) 0.0 (0-1) % Sodium (140-148) mmol/L Potassium (3.6-5.2) mmol/L Chloride (100-108) mmol/L Carbon Dioxide (21-32) mmol/L Anion Gap (5.0-14.0) mmol/L BUN (7-18) mg/dL Creatinine (0.6-1.0) mg/dL Est Cr Clr Drug Dosing mL/min Estimated GFR (MDRD) (>60) Glucose (74-106) mg/dL POC Glucose 201 H 164 H (74-106) mg/dL Calcium (8.5-10.1) mg/dL 05/24/21 05/24/21 05/24/21 Range/Units 04:25 07:28 11:18 WBC (4.5-11.0) K/uL RBC (3.30-5.50) M/uL Hgb (12.0-15.0) g/dL Hct (36.0-48.0) % MCV (80-98) fL MCH (27-31) pg MCHC (32-36) % Plt Count (150-400) K/uL Neut % (Auto) (36-66) % Lymph % (Auto) (24-44) % Ness % (Auto) (2-6) % Eos % (Auto) (2-4) % Baso % (Auto) (0-1) % Sodium 133 L (140-148) mmol/L Potassium 4.4 (3.6-5.2) mmol/L Chloride 98 L (100-108) mmol/L Carbon Dioxide 31 (21-32) mmol/L Anion Gap 8.4 (5.0-14.0) mmol/L BUN 42 H (7-18) mg/dL Creatinine 1.4 H (0.6-1.0) mg/dL Est Cr Clr Drug Dosing 24.17 mL/min Estimated GFR (MDRD) 36 L (>60) Glucose 116 H (74-106) mg/dL POC Glucose 110 H 254 H (74-106) mg/dL Calcium 8.0 L (8.5-10.1) mg/dL Martin Results Last 24 Hours: Microbiology 05/23/21 07:31 Fungal Culture - Preliminary Thoracentesis Fluid - Right NO FUNGAL GROWTH AT 1 WEEK 05/23/21 07:31 Gram Stain - Final Thoracentesis Fluid - Right Body Fluid Culture - Preliminary NO GROWTH AFTER 1 DAY 05/22/21 15:26 Gram Stain - Final Pleural Fluid - Pleural Cavity, Left Body Fluid Culture - Preliminary NO GROWTH AFTER 1 DAY Aerobic Culture - Final Anaerobic Culture - Final 05/22/21 22:03 Urine Culture - Preliminary Urine, Clean Catch NO GROWTH AFTER 1 DAY 05/22/21 20:15 Aerobic Blood Culture - Preliminary Blood - Arm, Right NO GROWTH AFTER 1 DAY Anaerobic Blood Culture - Preliminary NO GROWTH AFTER 1 DAY 05/22/21 20:00 Aerobic Blood Culture - Preliminary Blood - Arm, Right NO GROWTH AFTER 1 DAY Anaerobic Blood Culture - Preliminary NO GROWTH AFTER 1 DAY Med Orders - Current: Current Medications Acetaminophen (Acetaminophen 325 Mg Tab) 650 mg PO Q4H PRN PRN Reason: Pain (Mild 1-3)/fever Last Admin: 05/24/21 09:42 Dose: 650 mg Documented by: Aspirin (Aspirin 81 Mg Tab.Ec) 81 mg PO DAILY [facility] Last Admin: 05/24/21 09:18 Dose: 81 mg Documented by: Dextrose (Glucose Gel 15 Gm In 37.5 Gm Tube) 15 gm PO ONETIME PRN PRN Reason: Hypoglycemia Dextrose/Water (50% Dextrose In Water 50 Ml Syringe) 50 ml IV ONETIME PRN PRN Reason: Hypoglycemia Enoxaparin Sodium (Enoxaparin 30 Mg/0.3 Ml Syringe) 30 mg SUBCUT BEDTIME [facility] Last Admin: 05/23/21 21:11 Dose: 30 mg Documented by: Hydrocortisone (Hydrocortisone 1% Crm 30 Gm Tube) 0 gm TOP BID [facility] Last Admin: 05/24/21 09:15 Dose: 1 applic Documented by: Levofloxacin/Dextrose 750 mg/ (Premix) 150 mls @ 100 mls/hr IV Q48H [facility] Last Admin: 05/22/21 20:36 Dose: 100 mls/hr Documented by: Piperacillin/Tazobactam/ (Dextrose 2.25 gm/ Premix) 50 mls @ 100 mls/hr IV Q6H [facility] Stop: 05/24/21 18:00 Last Admin: 05/24/21 14:01 Dose: 100 mls/hr Documented by: Sodium Chloride (Normal Saline) 1,000 mls @ 50 mls/hr IV ASDIRECTED [facility] Last Admin: 05/24/21 11:01 Dose: 50 mls/hr Documented by: Vancomycin HCl 1.2 gm/ Sodium (Chloride) 250 mls @ 166.667 mls/hr IV Q24H [facility] Last Admin: 05/23/21 22:55 Dose: 166.667 mls/hr Documented by: Piperacillin/Tazobactam/ (Dextrose 3.375 gm/ Premix) 50 mls @ 100 mls/hr IV Q6H [facility] Insulin Human Lispro (Insulin Lispro 100 Unit/Ml 3 Ml Kwikpen) 0 unit SUBCUT QIDACANDBED [facility]; Protocol Last Admin: 05/24/21 11:29 Dose: 3 unit Documented by: Lisinopril (Lisinopril 10 Mg Tab) 10 mg PO DAILY [facility] Last Admin: 05/24/21 09:18 Dose: Not Given Documented by: Lovastatin (Lovastatin 20 Mg Tab) 20 mg PO DAILY [facility] Last Admin: 05/24/21 09:18 Dose: 20 mg Documented by: Multivitamins/Minerals (Multivitamins With Iron/Calcium/Folic Acid/Minerals Tab) 1 tab PO DAILY [facility] Last Admin: 05/24/21 09:18 Dose: 1 tab Documented by: Ondansetron HCl (Ondansetron 4 Mg/2 Ml Sdv) 4 mg IV Q4H PRN PRN Reason: Nausea/Vomiting Oxycodone HCl (Oxycodone 5 Mg Tab) 5 mg PO Q4H PRN PRN Reason: Pain (moderate 4-6) Last Admin: 05/23/21 21:46 Dose: 5 mg Documented by: Phenyleph/Shark Oil/Min Oil/Petrol (Mineral Oil/Petrolatum/Phenylephrine/Shark Liver Oil Oint 57 Gm Tube) 0 gm RECTAL BID [facility] Last Admin: 05/24/21 09:15 Dose: 1 applic Documented by: Polyethylene Glycol (Polyethylene Glycol 3350 Powder 17 Gm Packet) 17 gm PO DAILY PRN PRN Reason: Constipation Last Admin: 05/24/21 11:00 Dose: 17 gm Documented by: Sodium Chloride (Sodium Chloride 0.9% 10 Ml Syringe) 10 ml FLUSH ASDIRECTED PRN PRN Reason: Keep Vein Open Discontinued Medications Furosemide (Furosemide 40 Mg/4 Ml Vial) 40 mg IVPUSH NOW ONE Stop: 05/23/21 10:54 Last Admin: 05/23/21 17:15 Dose: Not Given Documented by: Sodium Chloride (Normal Saline) 1,000 mls @ 1,000 mls/hr IV .BOLUS ONE Stop: 05/22/21 16:38 Last Admin: 05/22/21 16:07 Dose: 1,000 mls/hr Documented by: Sodium Chloride (Normal Saline) 1,000 mls @ 1,000 mls/hr IV .BOLUS ONE Stop: 05/22/21 18:33 Last Admin: 05/22/21 17:39 Dose: 1,000 mls/hr Documented by: Sodium Chloride (Normal Saline) 1,000 mls @ 125 mls/hr IV ASDIRECTED [facility] Last Admin: 05/22/21 22:32 Dose: 125 mls/hr Documented by: Piperacillin/Tazobactam/ (Dextrose 2.25 gm/ Premix) 50 mls @ 100 mls/hr IV Q6H [facility] Last Admin: 05/23/21 00:47 Dose: 100 mls/hr Documented by: Vancomycin HCl 1 gm/ Sodium (Chloride) 250 mls @ 166.667 mls/hr IV Q24H [facility] Last Admin: 05/22/21 22:29 Dose: 166.667 mls/hr Documented by: Sodium Chloride (Normal Saline) Confirm Administered Dose 100 mls @ as directed .ROUTE .STK-MED ONE Stop: 05/23/21 00:41 Last Admin: 05/23/21 00:48 Dose: Not Given Documented by: Pharmacy Consult (Vancomycin Per Pharmacy) 1 each .XX ASDIRECTED [facility] Stop: 05/23/21 07:30 Vancomycin HCl (Vancomycin 1 Gm Sdv) 1 gm IV .PHARMACY TO DOSE THIAGO - Exam Quality Assessment: Supplemental Oxygen General: Alert, Oriented, Cooperative, No Acute Distress Lungs: Normal Respiratory Effort, Decreased Breath Sounds (both bases) Cardiovascular: Regular Rate, Regular Rhythm GI/Abdominal Exam: Normal Bowel Sounds, Soft, No Distention Extremities: No Pedal Edema, Other (pitting edema posterior thighs bilaterally ). No: Increased Warmth Skin: Warm, Dry Psy/Mental Status: Alert, Normal Affect - Patient Data Lab Results Last 24 hrs: Laboratory Results - last 24 hr 05/23/21 05/23/21 05/24/21 Range/Units 16:29 20:55 04:25 WBC 23.9 H (4.5-11.0) K/uL RBC 4.04 (3.30-5.50) M/uL Hgb 10.4 L (12.0-15.0) g/dL Hct 33.0 L (36.0-48.0) % MCV 82 (80-98) fL MCH 26 L (27-31) pg MCHC 32 (32-36) % Plt Count 216 (150-400) K/uL Neut % (Auto) 96.3 H (36-66) % Lymph % (Auto) 1.0 L (24-44) % Ness % (Auto) 2.2 (2-6) % Eos % (Auto) 0.5 L (2-4) % Baso % (Auto) 0.0 (0-1) % Sodium (140-148) mmol/L Potassium (3.6-5.2) mmol/L Chloride (100-108) mmol/L Carbon Dioxide (21-32) mmol/L Anion Gap (5.0-14.0) mmol/L BUN (7-18) mg/dL Creatinine (0.6-1.0) mg/dL Est Cr Clr Drug Dosing mL/min Estimated GFR (MDRD) (>60) Glucose (74-106) mg/dL POC Glucose 201 H 164 H (74-106) mg/dL Calcium (8.5-10.1) mg/dL 05/24/21 05/24/21 05/24/21 Range/Units 04:25 07:28 11:18 WBC (4.5-11.0) K/uL RBC (3.30-5.50) M/uL Hgb (12.0-15.0) g/dL Hct (36.0-48.0) % MCV (80-98) fL MCH (27-31) pg MCHC (32-36) % Plt Count (150-400) K/uL Neut % (Auto) (36-66) % Lymph % (Auto) (24-44) % Ness % (Auto) (2-6) % Eos % (Auto) (2-4) % Baso % (Auto) (0-1) % Sodium 133 L (140-148) mmol/L Potassium 4.4 (3.6-5.2) mmol/L Chloride 98 L (100-108) mmol/L Carbon Dioxide 31 (21-32) mmol/L Anion Gap 8.4 (5.0-14.0) mmol/L BUN 42 H (7-18) mg/dL Creatinine 1.4 H (0.6-1.0) mg/dL Est Cr Clr Drug Dosing 24.17 mL/min Estimated GFR (MDRD) 36 L (>60) Glucose 116 H (74-106) mg/dL POC Glucose 110 H 254 H (74-106) mg/dL Calcium 8.0 L (8.5-10.1) mg/dL Result Diagrams: 05/24/21 04:25 05/24/21 04:25 Martin Results Last 24 hrs: Microbiology 05/23/21 07:31 Fungal Culture - Preliminary Thoracentesis Fluid - Right NO FUNGAL GROWTH AT 1 WEEK 05/23/21 07:31 Gram Stain - Final Thoracentesis Fluid - Right Body Fluid Culture - Preliminary NO GROWTH AFTER 1 DAY 05/22/21 15:26 Gram Stain - Final Pleural Fluid - Pleural Cavity, Left Body Fluid Culture - Preliminary NO GROWTH AFTER 1 DAY Aerobic Culture - Final Anaerobic Culture - Final 05/22/21 22:03 Urine Culture - Preliminary Urine, Clean Catch NO GROWTH AFTER 1 DAY 05/22/21 20:15 Aerobic Blood Culture - Preliminary Blood - Arm, Right NO GROWTH AFTER 1 DAY Anaerobic Blood Culture - Preliminary NO GROWTH AFTER 1 DAY 05/22/21 20:00 Aerobic Blood Culture - Preliminary Blood - Arm, Right NO GROWTH AFTER 1 DAY Anaerobic Blood Culture - Preliminary NO GROWTH AFTER 1 DAY Sepsis Event Note - Evaluation Sepsis Screening Result: Possible Sepsis Risk - Focused Exam Vital Signs: Vital Signs Temp Pulse Resp BP BP Pulse Ox 05/24/21 11:59 96 05/24/21 10:57 36.8 C 94 18 94/38 L 97 05/24/21 09:18 97/39 L 05/24/21 07:31 96 05/24/21 07:24 35.2 C L 83 18 97/39 L 96 05/24/21 02:58 35.7 C L 82 18 91/40 L 96 - Problem List Review Problem List Initiated/Reviewed/Updated: Yes - My Orders Last 24 Hours: My Active Orders 05/24/21 14:39 bisacodyL [Dulcolax] 10 mg RECTAL ONETIME ONE 05/24/21 20:00 Piperacillin/Tazobactam/Dext [Zosyn in Dextrose Iso-Osmotic 3.375 GM/50 ML] 3.375 gm Premix Bag 1 bag IV Q6H 05/25/21 05:00 CBC W/O DIFF,HEMOGRAM [HEME] Timed (1) COMPREHENSIVE METABOLIC PN,CMP [CHEM] Timed - Plan Plan:: ASSESSMENT AND PLAN PNEUMONIA-she has become progressively more weak with increased shortness of breath and anorexia. Some of this is likely secondary to her progressive lym phoma but CT did suggest some consolidation in the lungs. Complicated by acute respiratory failure with hypoxia. Cultures negative so far. 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 We will need to have some discussions with oncology when they are available tomorrow. -Surgical follow-up per Dr. Dowd -Drain left pleural effusion as needed per Pleurx drain -Discussed case with oncology tomorrow ACUTE KIDNEY INJURY-likely secondary to dehydration and intravascular volume depletion. Improving with hydration. -IV fluids as above -Closely monitor urine output and renal function TYPE 2 DIABETES MELLITUS-blood sugars acceptable so far with sliding scale insulin. Intake is improving. -Hold glipizide and Metformin because of poor oral intake -4 times daily glucometers -Low-dose sliding scale Humalog SEVERE PROTEIN CALORIE MALNUTRITION-likely secondary to very poor oral intake. Albumin was 1.1. -Nutritional supplements several times a day GENERALIZED WEAKNESS-secondary to progressive lymphoma and current pneumonia -Physical therapy consult when available on Monday MAINTENANCE ISSUES -DVT prophylaxis; Lovenox 40 mg subcu daily -GI prophylaxis; not indicated -Bishop catheter; not indicated -Nutrition; consistent carbohydrate diet DISPOSITION-anticipate discharge to home after the hospital stay. Jc Min MD
[2021-05-24] MEDS: Piperacillin/Tazobactam/Dext 3.375 GM in Premix Bag 1 BAG IV SCH (19:38)
[2021-05-24] MEDS: oxyCODONE 5 MG Tab PO PRN (19:38)
[2021-05-24] MEDS: Levofloxacin/Dextrose 5%-Water 750 MG in Premix Bag 1 BAG IV SCH (21:14)
[2021-05-24] MEDS: Enoxaparin 30 MG/0.3 ML Syringe SUBCUT SCH (21:15)
[2021-05-24] MEDS: Vancomycin 1.2 GM in Sodium Chloride 0.9% 250 ML IV SCH (23:29)
[2021-05-25] MEDS: oxyCODONE 5 MG Tab PO PRN ×2 (01:12→10:25)
[2021-05-25] MEDS: Piperacillin/Tazobactam/Dext 3.375 GM in Premix Bag 1 BAG IV SCH ×4 (01:14→19:53)
[2021-05-25] MEDS: Benzonatate 100 MG Cap PO PRN ×3 (04:46→21:37)
[2021-05-25] MEDS: Insulin Lispro 100 Unit/ML 3 ML KwikPen SUBCUT SCH ×4 (07:51→21:40)
[2021-05-25] MEDS: Mineral Oil/Petrolatum/Phenylephrine/Shark Liver Oil Oint 57 GM Tube RECTAL SCH ×2 (08:39→21:37)
[2021-05-25] MEDS: Aspirin 81 MG Tab.EC PO SCH (08:39)
[2021-05-25] MEDS: Multivitamins with Iron/Calcium/Folic Acid/Minerals Tab PO SCH (08:39)
[2021-05-25] MEDS: Hydrocortisone 1% Crm 30 GM Tube TOP SCH ×2 (08:39→21:38)
[2021-05-25] MEDS: Lisinopril 10 MG Tab PO SCH (08:39)
[2021-05-25] MEDS ORDERED: Heparin Sodium 5,000 Units/ML Vial SUBCUT ONE (09:00)
[2021-05-25] MEDS ORDERED: Lidocaine 1% 50 ML MDV INJECT ONE (09:00)
[2021-05-25] MEDS: Albumin Human 25 GM in Premix Bag 1 BAG IV SCH ×3 (10:26→23:38)
--- NOTE | 2021-05-25 10:58 | PROC ---
DATE OF PROCEDURE: SURGEON: Duncan Carey MD PROCEDURES PERFORMED: Bone marrow biopsy and aspirate. INDICATION: The patient with presentation of large cell lymphoma, concern for bone marrow invasion. Evaluation to stage the patient with an ability to more appropriately provide therapy and guide future management. CONSENT: The patient informed the risks of the procedure, the possibility of infection, bleeding, adverse reaction to medications, scarring, discomfort with the procedure, possibility of perforation to internal organs, benefit to obtain sampling of the bone marrow biopsy and aspirate to better guide her therapy and treatment of lymphoma. The patient indicated understanding, gave consent to proceed. DESCRIPTION OF PROCEDURE: In a time-out fashion, the appropriate patient and site selection made and the procedure itself. The patient then had the procedure undertaken. The patient had appreciation of the iliac crest, and the left posterior iliac crest was selected for site of the procedure. The patient had the area anatomically appreciated, and then the area was cleansed with Betadine solution and then sterile towel technique followed. The patient had local anesthetic applied initially subcutaneous and then along the track of the tissue and then to the bone surface itself. 1% lidocaine was utilized without epinephrine in quantity of 15 mL. The patient following good anesthetic application, then had fine incision made in the skin in XY fashion. Through this entrance point was then placed the trocar with indwelling stylet, which was advanced through the tissue to the bone surface, and then under firm guided pressure into the bone itself. With good positioning in the bone, the indwelling stylet was withdrawn, and then the large syringe was applied. This initial attempt returned a negative return on aspirate. The patient then had repositioning of the stylet and trocar again as a unit to second site on the bone surface and now again advanced a good position. The stylet withdrawn and then negative pressure applied again with large syringe. This time, aspirate was obtained of initially 8 mL, which was passed to renal technician for processing. Second large syringe was applied containing heparin and this again contained about 8 mL of blood, was then again of bone marrow aspirate, was then again passed to the renal technician for processing. The patient then had replacement of the stylet, and trocar and stylet were withdrawn, and a third site was selected for the biopsy specimen itself. Here, the trocar was advanced to the bone surface with the stylet, and then the stylet withdrawn. The trocar alone was advanced into good depth and position in the bone. Clockwise, counter clockwise rotations were applied to the trocar. Then, the trocar withdrawn with a biopsy specimen contained. The biopsy specimen was passed to the renal technician for processing. Firm pressure was held at the site for hemostasis. The patient had less than 5 mL blood loss. No profuse bleeding was observed. The patient tolerated the procedure well. There was no immediate complication of the procedure noted. The results of the bone marrow biopsy and aspirate are pending from Pathology Services at this time. The patient had post bone marrow instructions and instruction sheet applied to the chart. The patient is inpatient status at this time. The patient's medications were reviewed in this case, where the patient had Lovenox the night before. Risks, benefits assessed. The benefit of the procedure exceeded risk and the procedure was carried forward noting the Lovenox, but with good pressure bandage applied. Postprocedure expectation is should do well. The patient had good platelet count presentation noted additionally. The patient did not have any other questions and will be following up with Oncology Services at this time. Duncan Carey MD /[id number]
--- NOTE | 2021-05-25 12:57 | PCM.PN ---
- General Info Date of Service: 05/25/21 Subjective Update: No acute events overnight though the patient did not sleep well because of her cough. She thinks her strength and appetite are little better today. Shortness of breath is a little more today than yesterday. No fevers overnight. White blood cell count slightly higher but relatively stable. Blood sugars fairly well controlled. Doing well on 4 L of oxygen. She did talk with oncology today and they are hoping that she is doing well enough to be discharged tomorrow so they can start with chemotherapy. She does have increased left arm swelling as well as swelling of both lower extremities which has increased since yesterday. Functional Status: Reports: Pain Controlled - Review of Systems General: Reports: Weakness Cardiovascular: Reports: Edema (left arm and both legs ) - Patient Data Vitals - Most Recent: Last Vital Signs Temp 36.3 C 05/25/21 11:09 Pulse 106 H 05/25/21 11:09 Resp 18 05/25/21 11:09 BP 118/54 L 05/25/21 11:09 Pulse Ox 97 05/25/21 11:57 Weight - Most Recent: 77.111 kg I&O - Last 24 Hours: Intake & Output 05/24/21 05/25/21 05/25/21 22:59 06:59 14:59 Intake Total 840 1192 940 Output Total 600 200 50 Balance 240 992 890 Lab Results Last 24 Hours: Laboratory Results - last 24 hr 05/24/21 05/24/21 05/25/21 Range/Units 16:24 21:08 04:15 WBC 25.6 H (4.5-11.0) K/uL RBC 4.29 (3.30-5.50) M/uL Hgb 11.0 L (12.0-15.0) g/dL Hct 34.7 L (36.0-48.0) % MCV 81 (80-98) fL MCH 26 L (27-31) pg MCHC 32 (32-36) % Plt Count 306 (150-400) K/uL Sodium (140-148) mmol/L Potassium (3.6-5.2) mmol/L Chloride (100-108) mmol/L Carbon Dioxide (21-32) mmol/L Anion Gap (5.0-14.0) mmol/L BUN (7-18) mg/dL Creatinine (0.6-1.0) mg/dL Est Cr Clr Drug Dosing mL/min Estimated GFR (MDRD) (>60) Glucose (74-106) mg/dL POC Glucose 260 H 299 H (74-106) mg/dL Calcium (8.5-10.1) mg/dL Total Bilirubin (0.2-1.0) mg/dL AST (15-37) U/L ALT (12-78) U/L Alkaline Phosphatase (46-116) U/L Total Protein (6.4-8.2) g/dL Albumin (3.4-5.0) g/dL Globulin (2.3-3.5) g/dL Albumin/Globulin Ratio (1.2-2.2) 05/25/21 05/25/21 05/25/21 Range/Units 04:15 07:28 11:37 WBC (4.5-11.0) K/uL RBC (3.30-5.50) M/uL Hgb (12.0-15.0) g/dL Hct (36.0-48.0) % MCV (80-98) fL MCH (27-31) pg MCHC (32-36) % Plt Count (150-400) K/uL Sodium 133 L (140-148) mmol/L Potassium 4.6 (3.6-5.2) mmol/L Chloride 98 L (100-108) mmol/L Carbon Dioxide 29 (21-32) mmol/L Anion Gap 10.6 (5.0-14.0) mmol/L BUN 37 H (7-18) mg/dL Creatinine 1.3 H (0.6-1.0) mg/dL Est Cr Clr Drug Dosing 26.03 mL/min Estimated GFR (MDRD) 40 L (>60) Glucose 189 H (74-106) mg/dL POC Glucose 214 H 273 H (74-106) mg/dL Calcium 8.9 (8.5-10.1) mg/dL Total Bilirubin 0.4 (0.2-1.0) mg/dL AST 29 (15-37) U/L ALT 17 (12-78) U/L Alkaline Phosphatase 120 H (46-116) U/L Total Protein 4.4 L (6.4-8.2) g/dL Albumin 1.0 L (3.4-5.0) g/dL Globulin 3.4 (2.3-3.5) g/dL Albumin/Globulin Ratio 0.3 L (1.2-2.2) Martin Results Last 24 Hours: Microbiology 05/23/21 07:31 Gram Stain - Final Thoracentesis Fluid - Right Body Fluid Culture - Preliminary NO GROWTH AFTER 2 DAYS 05/22/21 15:26 Gram Stain - Final Pleural Fluid - Pleural Cavity, Left Body Fluid Culture - Preliminary NO GROWTH AFTER 2 DAYS Aerobic Culture - Final Anaerobic Culture - Final 05/22/21 22:03 Urine Culture - Final Urine, Clean Catch NO GROWTH AFTER 2 DAYS 05/22/21 20:15 Aerobic Blood Culture - Preliminary Blood - Arm, Right NO GROWTH AFTER 2 DAYS Anaerobic Blood Culture - Preliminary NO GROWTH AFTER 2 DAYS 05/22/21 20:00 Aerobic Blood Culture - Preliminary Blood - Arm, Right NO GROWTH AFTER 2 DAYS Anaerobic Blood Culture - Preliminary NO GROWTH AFTER 2 DAYS Med Orders - Current: Current Medications Acetaminophen (Acetaminophen 325 Mg Tab) 650 mg PO Q4H PRN PRN Reason: Pain (Mild 1-3)/fever Last Admin: 05/24/21 19:38 Dose: 650 mg Documented by: Allopurinol (Allopurinol 100 Mg Tab) 300 mg PO DAILY [facility] Aspirin (Aspirin 81 Mg Tab.Ec) 81 mg PO DAILY [facility] Last Admin: 05/25/21 08:39 Dose: 81 mg Documented by: Benzonatate (Benzonatate 100 Mg Cap) 100 mg PO Q8H PRN PRN Reason: Cough Last Admin: 05/25/21 04:46 Dose: 100 mg Documented by: Dextrose (Glucose Gel 15 Gm In 37.5 Gm Tube) 15 gm PO ONETIME PRN PRN Reason: Hypoglycemia Dextrose/Water (50% Dextrose In Water 50 Ml Syringe) 50 ml IV ONETIME PRN PRN Reason: Hypoglycemia Enoxaparin Sodium (Enoxaparin 30 Mg/0.3 Ml Syringe) 30 mg SUBCUT BEDTIME [facility] Last Admin: 05/24/21 21:15 Dose: 30 mg Documented by: Hydrocortisone (Hydrocortisone 1% Crm 30 Gm Tube) 0 gm TOP BID [facility] Last Admin: 05/25/21 08:39 Dose: 1 applic Documented by: Levofloxacin/Dextrose 750 mg/ (Premix) 150 mls @ 100 mls/hr IV Q48H [facility] Last Admin: 05/24/21 21:14 Dose: 100 mls/hr Documented by: Piperacillin/Tazobactam/ (Dextrose 3.375 gm/ Premix) 50 mls @ 100 mls/hr IV Q6H [facility] Last Admin: 05/25/21 07:53 Dose: 100 mls/hr Documented by: Albumin Human 25 gm/ Premix 100 mls @ 100 mls/hr IV Q6H [facility] Stop: 05/26/21 11:59 Last Admin: 05/25/21 10:26 Dose: 100 mls/hr Documented by: Insulin Human Lispro (Insulin Lispro 100 Unit/Ml 3 Ml Kwikpen) 0 unit SUBCUT QIDACANDBED [facility]; Protocol Last Admin: 05/25/21 11:51 Dose: 3 unit Documented by: Lisinopril (Lisinopril 10 Mg Tab) 10 mg PO DAILY [facility] Last Admin: 05/25/21 08:39 Dose: 10 mg Documented by: Lovastatin (Lovastatin 20 Mg Tab) 20 mg PO DAILY [facility] Last Admin: 05/25/21 08:39 Dose: 20 mg Documented by: Multivitamins/Minerals (Multivitamins With Iron/Calcium/Folic Acid/Minerals Tab) 1 tab PO DAILY [facility] Last Admin: 05/25/21 08:39 Dose: 1 tab Documented by: Ondansetron HCl (Ondansetron 4 Mg/2 Ml Sdv) 4 mg IV Q4H PRN PRN Reason: Nausea/Vomiting Oxycodone HCl (Oxycodone 5 Mg Tab) 5 mg PO Q4H PRN PRN Reason: Pain (moderate 4-6) Last Admin: 05/25/21 10:25 Dose: 5 mg Documented by: Phenyleph/Shark Oil/Min Oil/Petrol (Mineral Oil/Petrolatum/Phenylephrine/Shark Liver Oil Oint 57 Gm Tube) 0 gm RECTAL BID [facility] Last Admin: 05/25/21 08:39 Dose: 1 applic Documented by: Polyethylene Glycol (Polyethylene Glycol 3350 Powder 17 Gm Packet) 17 gm PO BRENDON LY PRN PRN Reason: Constipation Last Admin: 05/24/21 11:00 Dose: 17 gm Documented by: Sodium Chloride (Sodium Chloride 0.9% 10 Ml Syringe) 10 ml FLUSH ASDIRECTED PRN PRN Reason: Keep Vein Open Discontinued Medications Bisacodyl (Bisacodyl 10 Mg Supp) 10 mg RECTAL ONETIME ONE Stop: 05/24/21 14:40 Last Admin: 05/24/21 15:41 Dose: 10 mg Documented by: Furosemide (Furosemide 40 Mg/4 Ml Vial) 40 mg IVPUSH NOW ONE Stop: 05/23/21 10:54 Last Admin: 05/23/21 17:15 Dose: Not Given Documented by: Heparin Sodium (Porcine) (Heparin Sodium 5,000 Units/Ml Vial) 0 units SUBCUT ONETIME ONE Stop: 05/25/21 09:01 Last Admin: 05/25/21 09:53 Dose: 1 units Documented by: Sodium Chloride (Normal Saline) 1,000 mls @ 1,000 mls/hr IV .BOLUS ONE Stop: 05/22/21 16:38 Last Admin: 05/22/21 16:07 Dose: 1,000 mls/hr Documented by: Sodium Chloride (Normal Saline) 1,000 mls @ 1,000 mls/hr IV .BOLUS ONE Stop: 05/22/21 18:33 Last Admin: 05/22/21 17:39 Dose: 1,000 mls/hr Documented by: Sodium Chloride (Normal Saline) 1,000 mls @ 125 mls/hr IV ASDIRECTED [facility] Last Admin: 05/22/21 22:32 Dose: 125 mls/hr Documented by: Piperacillin/Tazobactam/ (Dextrose 2.25 gm/ Premix) 50 mls @ 100 mls/hr IV Q6H [facility] Last Admin: 05/23/21 00:47 Dose: 100 mls/hr Documented by: Vancomycin HCl 1 gm/ Sodium (Chloride) 250 mls @ 166.667 mls/hr IV Q24H [facility] Last Admin: 05/22/21 22:29 Dose: 166.667 mls/hr Documented by: Sodium Chloride (Normal Saline) Confirm Administered Dose 100 mls @ as directed .ROUTE .STK-MED ONE Stop: 05/23/21 00:41 Last Admin: 05/23/21 00:48 Dose: Not Given Documented by: Piperacillin/Tazobactam/ (Dextrose 2.25 gm/ Premix) 50 mls @ 100 mls/hr IV Q6H [facility] Stop: 05/24/21 18:00 Last Admin: 05/24/21 14:01 Dose: 100 mls/hr Documented by: Sodium Chloride (Normal Saline) 1,000 mls @ 50 mls/hr IV ASDIRECTED [facility] Last Admin: 05/24/21 11:01 Dose: 50 mls/hr Documented by: Vancomycin HCl 1.2 gm/ Sodium (Chloride) 250 mls @ 166.667 mls/hr IV Q24H [facility] Last Admin: 05/24/21 23:29 Dose: 166.667 mls/hr Documented by: Lidocaine HCl (Lidocaine 1% 50 Ml Mdv) 0 ml INJECT ONETIME ONE Stop: 05/25/21 09:01 Last Admin: 05/25/21 09:53 Dose: 50 ml Documented by: Pharmacy Consult (Vancomycin Per Pharmacy) 1 each .XX ASDIRECTED [facility] Stop: 05/23/21 07:30 Vancomycin HCl (Vancomycin 1 Gm Sdv) 1 gm IV .PHARMACY TO DOSE THIAGO - Exam Quality Assessment: Supplemental Oxygen General: Alert, Oriented, Cooperative, No Acute Distress Lungs: Normal Respiratory Effort, Decreased Breath Sounds (left lower and mid lung and right lowerlung ), Crackles (few right lower and left mid ) Cardiovascular: Regular Rate, Regular Rhythm GI/Abdominal Exam: Soft, No Distention Extremities: Pedal Edema, Other (swelling left arm from hand to shoulder ). No: Increased Warmth Skin: Warm, Dry Psy/Mental Status: Alert, Normal Affect - Patient Data Lab Results Last 24 hrs: Laboratory Results - last 24 hr 05/24/21 05/24/21 05/25/21 Range/Units 16:24 21:08 04:15 WBC 25.6 H (4.5-11.0) K/uL RBC 4.29 (3.30-5.50) M/uL Hgb 11.0 L (12.0-15.0) g/dL Hct 34.7 L (36.0-48.0) % MCV 81 (80-98) fL MCH 26 L (27-31) pg MCHC 32 (32-36) % Plt Count 306 (150-400) K/uL Sodium (140-148) mmol/L Potassium (3.6-5.2) mmol/L Chloride (100-108) mmol/L Carbon Dioxide (21-32) mmol/L Anion Gap (5.0-14.0) mmol/L BUN (7-18) mg/dL Creatinine (0.6-1.0) mg/dL Est Cr Clr Drug Dosing mL/min Estimated GFR (MDRD) (>60) Glucose (74-106) mg/dL POC Glucose 260 H 299 H (74-106) mg/dL Calcium (8.5-10.1) mg/dL Total Bilirubin (0.2-1.0) mg/dL AST (15-37) U/L ALT (12-78) U/L Alkaline Phosphatase (46-116) U/L Total Protein (6.4-8.2) g/dL Albumin (3.4-5.0) g/dL Globulin (2.3-3.5) g/dL Albumin/Globulin Ratio (1.2-2.2) 05/25/21 05/25/21 05/25/21 Range/Units 04:15 07:28 11:37 WBC (4.5-11.0) K/uL RBC (3.30-5.50) M/uL Hgb (12.0-15.0) g/dL Hct (36.0-48.0) % MCV (80-98) fL MCH (27-31) pg MCHC (32-36) % Plt Count (150-400) K/uL Sodium 133 L (140-148) mmol/L Potassium 4.6 (3.6-5.2) mmol/L Chloride 98 L (100-108) mmol/L Carbon Dioxide 29 (21-32) mmol/L Anion Gap 10.6 (5.0-14.0) mmol/L BUN 37 H (7-18) mg/dL Creatinine 1.3 H (0.6-1.0) mg/dL Est Cr Clr Drug Dosing 26.03 mL/min Estimated GFR (MDRD) 40 L (>60) Glucose 189 H (74-106) mg/dL POC Glucose 214 H 273 H (74-106) mg/dL Calcium 8.9 (8.5-10.1) mg/dL Total Bilirubin 0.4 (0.2-1.0) mg/dL AST 29 (15-37) U/L ALT 17 (12-78) U/L Alkaline Phosphatase 120 H (46-116) U/L Total Protein 4.4 L (6.4-8.2) g/dL Albumin 1.0 L (3.4-5.0) g/dL Globulin 3.4 (2.3-3.5) g/dL Albumin/Globulin Ratio 0.3 L (1.2-2.2) Result Diagrams: 05/25/21 04:15 05/25/21 04:15 Martin Results Last 24 hrs: Microbiology 05/23/21 07:31 Gram Stain - Final Thoracentesis Fluid - Right Body Fluid Culture - Preliminary NO GROWTH AFTER 2 DAYS 05/22/21 15:26 Gram Stain - Final Pleural Fluid - Pleural Cavity, Left Body Fluid Culture - Preliminary NO GROWTH AFTER 2 DAYS Aerobic Culture - Final Anaerobic Culture - Final 05/22/21 22:03 Urine Culture - Final Urine, Clean Catch NO GROWTH AFTER 2 DAYS 05/22/21 20:15 Aerobic Blood Culture - Preliminary Blood - Arm, Right NO GROWTH AFTER 2 DAYS Anaerobic Blood Culture - Preliminary NO GROWTH AFTER 2 DAYS 05/22/21 20:00 Aerobic Blood Culture - Preliminary Blood - Arm, Right NO GROWTH AFTER 2 DAYS Anaerobic Blood Culture - Preliminary NO GROWTH AFTER 2 DAYS Sepsis Event Note - Evaluation Sepsis Screening Result: Possible Sepsis Risk - Focused Exam Vital Signs: Vital Signs Temp Pulse Resp BP BP BP Pulse Ox 05/25/21 11:57 97 05/25/21 11:09 36.3 C 106 H 18 118/54 L 96 05/25/21 09:52 105 H 16 119/61 97 05/25/21 08:58 35.6 C L 109 H 16 116/56 L 96 05/25/21 08:39 115/65 05/25/21 07:40 36.5 C 103 H 18 115/65 98 05/25/21 07:10 96 05/25/21 02:42 36.1 C 93 16 105/55 L 95 05/25/21 01:10 95 - Problem List Review Problem List Initiated/Reviewed/Updated: Yes - My Orders Last 24 Hours: My Active Orders 05/24/21 20:00 Piperacillin/Tazobactam/Dext [Zosyn in Dextrose Iso-Osmotic 3.375 GM/50 ML] 3.375 gm Premix Bag 1 bag IV Q6H 05/25/21 04:38 Benzonatate [Tessalon Perles] 100 mg PO Q8H PRN 05/25/21 11:00 Albumin Human [Albumin 25%] 25 gm Premix Bag 1 bag IV Q6H 05/25/21 12:51 Convert IV to Saline Lock [OM.PC] Routine 05/25/21 12:54 VL Duplex Upr Ext Veins Ltd Lt [US] Routine 05/25/21 13:00 allopurinoL [Zyloprim] 300 mg PO DAILY 05/26/21 05:00 Chest 1V Frontal [CR] Timed BASIC METABOLIC PANEL,BMP [CHEM] Timed CBC W/O DIFF,HEMOGRAM [HEME] Timed (1) - Plan Plan:: ASSESSMENT AND PLAN PNEUMONIA, suspected-she has become progressively more weak with increased shortness of breath and anorexia. Some of this is likely secondary to her progressive lymphoma but CT did suggest some consolidation in the lungs. Complicated by acute respiratory failure with hypoxia. Cultures negative so far. 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 Met with oncology today. Hoping to start chemotherapy soon -Surgical follow-up per Dr. Dowd -Drain left pleural effusion as needed per Pleurx drain, due today -Discussed case with oncology today, may start chemotherapy as early as tomorrow -Starting allopurinol today for potential tumor lysis ACUTE KIDNEY INJURY-likely secondary to dehydration and intravascular volume depletion. Improving with hydration. -Saline lock IV -Closely monitor urine output and renal function TYPE 2 DIABETES MELLITUS-blood sugars acceptable so far with sliding scale insulin. Intake is improving. -Hold glipizide and Metformin because of poor oral intake, should be able to restart tomorrow -4 times daily glucometers -Low-dose sliding scale Humalog SEVERE PROTEIN CALORIE MALNUTRITION-likely secondary to very poor oral intake. Albumin was 1.1. -IV albumin supplementation -Nutritional supplements several times a day GENERALIZED WEAKNESS-secondary to progressive lymphoma and current pneumonia -Physical therapy consult when available on Monday MAINTENANCE ISSUES -DVT prophylaxis; Lovenox 40 mg subcu daily -GI prophylaxis; not indicated -Bishop catheter; not indicated -Nutrition; consistent carbohydrate diet DISPOSITION-anticipate discharge to home after the hospital stay. Jc Min MD
[2021-05-25] MEDS: Allopurinol 100 MG Tab PO SCH (13:15)
--- NOTE | 2021-05-25 15:24 | US ---
VL Duplex Upr Ext Veins Ltd Lt INDICATION: left arm swelling, recent port placement, eval DVT FINDINGS: Imaging is limited through the axillary and supraclavicular region due to extensive lymphadenopathy. Doppler images show normal arterial flow but very diminished venous flow. There is increased flow with augmentation. There is normal flow in the jugular. No thrombus is identified IMPRESSION: Significant subclavicular and axillary lymphadenopathy. This causes impedance of flow on the proximal left upper extremity veins. There is no evidence of obstruction or thrombus
[2021-05-26] MEDS: Piperacillin/Tazobactam/Dext 3.375 GM in Premix Bag 1 BAG IV SCH ×2 (01:57→07:59)
[2021-05-26] MEDS: Albumin Human 25 GM in Premix Bag 1 BAG IV SCH (04:54)
[2021-05-26] MEDS: Benzonatate 100 MG Cap PO PRN (06:58)
[2021-05-26] MEDS: Insulin Lispro 100 Unit/ML 3 ML KwikPen SUBCUT SCH (07:59)
[2021-05-26] MEDS: Hydrocortisone 1% Crm 30 GM Tube TOP SCH (08:59)
[2021-05-26] MEDS: Multivitamins with Iron/Calcium/Folic Acid/Minerals Tab PO SCH (08:59)
[2021-05-26] MEDS: Aspirin 81 MG Tab.EC PO SCH (08:59)
[2021-05-26] MEDS: Mineral Oil/Petrolatum/Phenylephrine/Shark Liver Oil Oint 57 GM Tube RECTAL SCH (09:00)
[2021-05-26] MEDS: Lisinopril 10 MG Tab PO SCH (09:00)
[2021-05-26] MEDS: Allopurinol 100 MG Tab PO SCH (09:00)
--- NOTE | 2021-05-26 09:55 | PCM.DCSUM1 ---
Discharge Summary - Hospital Course Brief History: 76-year-old female with history of obesity with a BMI of 37, type 2 diabetes mellitus and recent diagnosis of a large B-cell lymphoma who presented with increasing weakness as well as worsening shortness of breath. She was admitted for management of bilateral pneumonia with bilateral pleural effusions 2/2 lymphoma. Diagnosis: Stroke: No - Discharge Data Discharge Date: 05/26/21 Discharge Disposition: Home, W Home Health Agency 06 Condition: Fair - Referral to Home Health Date of Face to Face Encounter: 05/26/21 Reason for Homebound Status: generalized weakness 2/2 lymphoma, protein calorie malnutrition Primary Care Physician: Timbo Vidal MD Skilled Need: Nursing, PT, OT, BI SPECIALIST - Discharge Diagnosis/Problem(s) (1) Bilateral pneumonia SNOMED Code(s): 840828326 ICD Code: J18.9 - PNEUMONIA, UNSPECIFIED ORGANISM Status: Acute Qualifiers: Pneumonia type: due to unspecified organism Lung location: lower lobe of lung Qualified Code(s): J18.9 - Pneumonia, unspecified organism (2) Acute and chronic respiratory failure with hypoxia SNOMED Code(s): 27175783, 795060499 ICD Code: J96.21 - ACUTE AND CHRONIC RESPIRATORY FAILURE WITH HYPOXIA Status: Acute (3) Large B-cell lymphoma SNOMED Code(s): 215771475 ICD Code: C85.10 - UNSPECIFIED B-CELL LYMPHOMA, UNSPECIFIED SITE Status: Acute (4) Bilateral pleural effusion SNOMED Code(s): 654026754 ICD Code: J90 - PLEURAL EFFUSION, NOT ELSEWHERE CLASSIFIED Status: Acute (5) Lymphoma involving lung SNOMED Code(s): 622942370, 820066914 ICD Code: C85.99 - NON-HODGKIN LYMPHOMA, UNSP, EXTRANODAL AND SOLID ORGAN SITES Status: Acute (6) Type 2 diabetes mellitus SNOMED Code(s): 73917332 ICD Code: E11.9 - TYPE 2 DIABETES MELLITUS WITHOUT COMPLICATIONS Status: Chronic 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 OT Reason for Consult: Strengthening This query below is only for informational purposes and is not editable. Admission Diagnosis/Problem: Pneumonia PT Evaluation and Treatment [CONS] Routine Please Evaluate and Treat. PT Reason for Consult: Strengthening This query below is only for informational purposes and is not editable. Admission Diagnosis/Problem: Pneumonia Hospital Course: Mackenzie presented to the emergency room with progressive weakness and dyspnea. Work-up in the emergency room revealed bilateral pleural effusions left greater than right as well as hypoxic respiratory failure necessitating 4 L of supplemental oxygen. She had acute kidney injury as well as significant edema of both lower extremities. She was admitted to the hospital for management of acute on chronic respiratory failure with increasing effusions as well as acute kidney injury. She received some IV fluids to help with the acute kidney injury and this did respond well. Her lower extremity swelling also improved with the IV fluids. They were also wrapped with Quang wraps to help with compression. Regarding the effusions, the left one is drained via a Pleurx drain every day or 2. Dr. Dowd performed a thoracentesis to drain the right pleural effusion. Symptomatically this did help her breathing. Her effusions do unfortunately recur with the left more impressively than the right. We have not repeated a thoracentesis on the right but have been draining the left side every other day. She has made good gains with her strength. She is now more independent and requiring only minimal assistance. Her acute kidney injury has resolved. She has not had any pain issues. We did note some swelling of the left arm. An ultrasound showed compression of the venous system by the lymphoma. No evidence for DVT. This has been improving with elevation as well as some lymph massage. We did talk to the oncology folks and they graciously came to see her in the hospital. The plan is for her to be discharged to their follow-up with the plan to initiate chemotherapy in the very near future and potentially today. She has made good improvements during the hospital stay and is interested in home care to help continue these improvements. The patient albumin was noted to be quite low at 1 so she was receiving oral supplements and did also receive some IV albumin. Diabetes has been well controlled with a sliding scale insulin. Her usual home meds were on hold because of her elevated creatinine but these can be restarted at the time of discharge. - Patient Instructions Diet: Regular Diet as Tolerated Diet, Other: protein supplements at least three times daily Activity: As Tolerated Showering/Bathing: May Shower Other/Special Instructions: 1. You were in the hospital for management of bilateral pneumonia of the lower lungs as well as bilateral pleural effusions secondary to your lymphoma. Your condition has been improving with cares provided here in the hospital. Please continue your usual amount of supplemental oxygen. I do recommend additional antibiotic therapy after hospital discharge. Please take levofloxacin 750 mg every 48 hours. Your first dose outside of the hospital will be due tonight about 8 PM. You may increase your activity as tolerated. 2. Continue to drain the fluid from the left lung as previously instructed. 3. Continue your usual home medications as previously prescribed. 4. I have placed a referral to home health care. They will provide nursing, physical therapy, occupational therapy and a home health aide to help ease your transition home. 5. Follow up with oncology after hospital discharge. They did request that we initiate allopurinol. This medication will help protect the kidneys once chemotherapy is initiated. You should take allopurinol 300 mg once daily in the morning until the folks from the infusion center tell you you can stop. - Discharge Plan *PRESCRIPTION DRUG MONITORING PROGRAM REVIEWED*: Not Applicable *COPY OF PRESCRIPTION DRUG MONITORING REPORT IN PATIENT MARTHA: Not Applicable Prescriptions/Med Rec: Benzonatate 100 mg PO Q6H PRN #40 capsule PRN Reason: Cough Levofloxacin 750 mg PO Q48H #2 tablet allopurinoL [Zyloprim] 300 mg PO DAILY #30 tablet Home Medications: Home Meds Lovastatin 20 mg PO DAILY 04/21/21 [History] amLODIPine [Norvasc] 10 mg PO DAILY 04/21/21 [History] glipiZIDE [Glucotrol XL] 10 mg PO BID 04/21/21 [History] lisinopriL [Lisinopril] 10 mg PO DAILY 04/21/21 [History] metFORMIN [Glucophage] 1,000 mg PO BID 04/21/21 [History] Aspirin [Halfprin] 81 mg PO DAILY 04/28/21 [History] Multivitamin [Multi-Vitamin Daily] 1 each PO DAILY 04/28/21 [History] Benzonatate 100 mg PO Q6H PRN #40 capsule 05/26/21 [Rx] Levofloxacin 750 mg PO Q48H #2 tablet 05/26/21 [Rx] allopurinoL [Zyloprim] 300 mg PO DAILY #30 tablet 05/26/21 [Rx] Oxygen Therapy Mode: Nasal Cannula Oxygen Flow Rate (L/min): 4 Patient Handouts: Pleural Effusion, Community-Acquired Pneumonia, Adult, [id number] Referrals: Audra Packer MD [Ordering Only Provider] - 05/26/21 10:00 am (keep your previously scheduled appointment for today.) - Discharge Summary/Plan Comment DC Time >30 min.: Yes Total # of Minutes for Discharge Time: 40 - set up home care - Patient Data Vitals - Most Recent: Last Vital Signs Temp 36.3 C 05/26/21 07:05 Pulse 103 H 05/26/21 07:05 Resp 18 05/26/21 07:05 BP 108/50 L 05/26/21 09:00 Pulse Ox 93 L 05/26/21 07:05 Weight - Most Recent: 86.273 kg I&O - Last 24 hours: Intake & Output 05/25/21 05/26/21 05/26/21 22:59 06:59 14:59 Intake Total 812 350 240 Output Total 900 950 300 Balance -88 -600 -60 Lab Results - Last 24 hrs: Laboratory Results - last 24 hr 05/25/21 05/25/21 05/25/21 Range/Units 11:37 16:23 20:56 WBC (4.5-11.0) K/uL RBC (3.30-5.50) M/uL Hgb (12.0-15.0) g/dL Hct (36.0-48.0) % MCV (80-98) fL MCH (27-31) pg MCHC (32-36) % Plt Count (150-400) K/uL Sodium (140-148) mmol/L Potassium (3.6-5.2) mmol/L Chloride (100-108) mmol/L Carbon Dioxide (21-32) mmol/L Anion Gap (5.0-14.0) mmol/L BUN (7-18) mg/dL Creatinine (0.6-1.0) mg/dL Est Cr Clr Drug Dosing mL/min Estimated GFR (MDRD) (>60) Glucose (74-106) mg/dL POC Glucose 273 H 257 H 182 H (74-106) mg/dL Calcium (8.5-10.1) mg/dL 05/26/21 05/26/21 05/26/21 Range/Units 05:30 05:30 07:27 WBC 19.4 H (4.5-11.0) K/uL RBC 3.67 (3.30-5.50) M/uL Hgb 9.3 L (12.0-15.0) g/dL Hct 30.0 L (36.0-48.0) % MCV 82 (80-98) fL MCH 25 L (27-31) pg MCHC 31 L (32-36) % Plt Count 281 (150-400) K/uL Sodium 135 L (140-148) mmol/L Potassium 5.0 (3.6-5.2) mmol/L Chloride 99 L (100-108) mmol/L Carbon Dioxide 29 (21-32) mmol/L Anion Gap 12.0 (5.0-14.0) mmol/L BUN 28 H (7-18) mg/dL Creatinine 1.2 H (0.6-1.0) mg/dL Est Cr Clr Drug Dosing 28.20 mL/min Estimated GFR (MDRD) 44 L (>60) Glucose 161 H (74-106) mg/dL POC Glucose 192 H (74-106) mg/dL Calcium 9.3 (8.5-10.1) mg/dL JODIE Results - Last 24 hrs: Microbiology 05/22/21 15:26 Gram Stain - Final Pleural Fluid - Pleural Cavity, Left Body Fluid Culture - Final NO GROWTH AFTER 3 DAYS Aerobic Culture - Final Anaerobic Culture - Final 05/23/21 07:31 Gram Stain - Final Thoracentesis Fluid - Right Body Fluid Culture - Final NO GROWTH AFTER 3 DAYS 05/22/21 20:15 Aerobic Blood Culture - Preliminary Blood - Arm, Right NO GROWTH AFTER 3 DAYS Anaerobic Blood Culture - Preliminary NO GROWTH AFTER 3 DAYS 05/22/21 20:00 Aerobic Blood Culture - Preliminary Blood - Arm, Right NO GROWTH AFTER 3 DAYS Anaerobic Blood Culture - Preliminary NO GROWTH AFTER 3 DAYS 05/22/21 22:03 Urine Culture - Final Urine, Clean Catch NO GROWTH AFTER 2 DAYS Med Orders - Current: Current Medications Acetaminophen (Acetaminophen 325 Mg Tab) 650 mg PO Q4H PRN PRN Reason: Pain (Mild 1-3)/fever Last Admin: 05/24/21 19:38 Dose: 650 mg Documented by: Allopurinol (Allopurinol 100 Mg Tab) 300 mg PO DAILY [facility] Last Admin: 05/26/21 09:00 Dose: 300 mg Documented by: Aspirin (Aspirin 81 Mg Tab.Ec) 81 mg PO DAILY [facility] Last Admin: 05/26/21 08:59 Dose: 81 mg Documented by: Benzonatate (Benzonatate 100 Mg Cap) 100 mg PO Q8H PRN PRN Reason: Cough Last Admin: 05/26/21 06:58 Dose: 100 mg Documented by: Dextrose (Glucose Gel 15 Gm In 37.5 Gm Tube) 15 gm PO ONETIME PRN PRN Reason: Hypoglycemia Dextrose/Water (50% Dextrose In Water 50 Ml Syringe) 50 ml IV ONETIME PRN PRN Reason: Hypoglycemia Enoxaparin Sodium (Enoxaparin 30 Mg/0.3 Ml Syringe) 30 mg SUBCUT BEDTIME [facility] Last Admin: 05/24/21 21:15 Dose: 30 mg Documented by: Hydrocortisone (Hydrocortisone 1% Crm 30 Gm Tube) 0 gm TOP BID [facility] Last Admin: 05/26/21 08:59 Dose: 1 applic Documented by: Levofloxacin/Dextrose 750 mg/ (Premix) 150 mls @ 100 mls/hr IV Q48H [facility] Last Admin: 05/24/21 21:14 Dose: 100 mls/hr Documented by: Albumin Human 25 gm/ Premix 100 mls @ 100 mls/hr IV Q6H [facility] Stop: 05/26/21 11:59 Last Admin: 05/26/21 04:54 Dose: 100 mls/hr Documented by: Insulin Human Lispro (Insulin Lispro 100 Unit/Ml 3 Ml Kwikpen) 0 unit SUBCUT QIDACANDBED [facility]; Protocol Last Admin: 05/26/21 07:59 Dose: 1 unit Documented by: Lisinopril (Lisinopril 10 Mg Tab) 10 mg PO DAILY [facility] Last Admin: 05/26/21 09:00 Dose: 10 mg Documented by: Lovastatin (Lovastatin 20 Mg Tab) 20 mg PO DAILY [facility] Last Admin: 05/26/21 08:59 Dose: 20 mg Documented by: Multivitamins/Minerals (Multivitamins With Iron/Calcium/Folic Acid/Minerals Tab) 1 tab PO DAILY [facility] Last Admin: 05/26/21 08:59 Dose: 1 tab Documented by: Ondansetron HCl (Ondansetron 4 Mg/2 Ml Sdv) 4 mg IV Q4H PRN PRN Reason: Nausea/Vomiting Oxycodone HCl (Oxycodone 5 Mg Tab) 5 mg PO Q4H PRN PRN Reason: Pain (moderate 4-6) Last Admin: 05/25/21 10:25 Dose: 5 mg Documented by: Phenyleph/Shark Oil/Min Oil/Petrol (Mineral Oil/Petrolatum/Phenylephrine/Shark Liver Oil Oint 57 Gm Tube) 0 gm RECTAL BID [facility] Last Admin: 05/26/21 09:00 Dose: 1 applic Documented by: Polyethylene Glycol (Polyethylene Glycol 3350 Powder 17 Gm Packet) 17 gm PO DAILY PRN PRN Reason: Constipation Last Admin: 05/24/21 11:00 Dose: 17 gm Documented by: Sodium Chloride (Sodium Chloride 0.9% 10 Ml Syringe) 10 ml FLUSH ASDIRECTED PRN PRN Reason: Keep Vein Open Discontinued Medications Bisacodyl (Bisacodyl 10 Mg Supp) 10 mg RECTAL ONETIME ONE Stop: 05/24/21 14:40 Last Admin: 05/24/21 15:41 Dose: 10 mg Documented by: Furosemide (Furosemide 40 Mg/4 Ml Vial) 40 mg IVPUSH NOW ONE Stop: 05/23/21 10:54 Last Admin: 05/23/21 17:15 Dose: Not Given Documented by: Heparin Sodium (Porcine) (Heparin Sodium 5,000 Units/Ml Vial) 0 units SUBCUT ONETIME ONE Stop: 05/25/21 09:01 Last Admin: 05/25/21 09:53 Dose: 1 units Documented by: Sodium Chloride (Normal Saline) 1,000 mls @ 1,000 mls/hr IV .BOLUS ONE Stop: 05/22/21 16:38 Last Admin: 05/22/21 16:07 Dose: 1,000 mls/hr Documented by: Sodium Chloride (Normal Saline) 1,000 mls @ 1,000 mls/hr IV .BOLUS ONE Stop: 05/22/21 18:33 Last Admin: 05/22/21 17:39 Dose: 1,000 mls/hr Documented by: Sodium Chloride (Normal Saline) 1,000 mls @ 125 mls/hr IV ASDIRECTED [facility] Last Admin: 05/22/21 22:32 Dose: 125 mls/hr Documented by: Piperacillin/Tazobactam/ (Dextrose 2.25 gm/ Premix) 50 mls @ 100 mls/hr IV Q6H [facility] Last Admin: 05/23/21 00:47 Dose: 100 mls/hr Documented by: Vancomycin HCl 1 gm/ Sodium (Chloride) 250 mls @ 166.667 mls/hr IV Q24H [facility] Last Admin: 05/22/21 22:29 Dose: 166.667 mls/hr Documented by: Sodium Chloride (Normal Saline) Confirm Administered Dose 100 mls @ as directed .ROUTE .STK-MED ONE Stop: 05/23/21 00:41 Last Admin: 05/23/21 00:48 Dose: Not Given Documented by: Piperacillin/Tazobactam/ (Dextrose 2.25 gm/ Premix) 50 mls @ 100 mls/hr IV Q6H [facility] Stop: 05/24/21 18:00 Last Admin: 05/24/21 14:01 Dose: 100 mls/hr Documented by: Sodium Chloride (Normal Saline) 1,000 mls @ 50 mls/hr IV ASDIRECTED [facility] Last Admin: 05/24/21 11:01 Dose: 50 mls/hr Documented by: Vancomycin HCl 1.2 gm/ Sodium (Chloride) 250 mls @ 166.667 mls/hr IV Q24H [facility] Last Admin: 05/24/21 23:29 Dose: 166.667 mls/hr Documented by: Piperacillin/Tazobactam/ (Dextrose 3.375 gm/ Premix) 50 mls @ 100 mls/hr IV Q6H [facility] Last Admin: 05/26/21 07:59 Dose: 100 mls/hr Documented by: Lidocaine HCl (Lidocaine 1% 50 Ml Mdv) 0 ml INJECT ONETIME ONE Stop: 05/25/21 09:01 Last Admin: 05/25/21 09:53 Dose: 50 ml Documented by: Pharmacy Consult (Vancomycin Per Pharmacy) 1 each .XX ASDIRECTED [facility] Stop: 05/23/21 07:30 Vancomycin HCl (Vancomycin 1 Gm Sdv) 1 gm IV .PHARMACY TO DOSE THIAGO - Exam Quality Assessment: Reports: Supplemental Oxygen General: Reports: Alert, Oriented, Cooperative, No Acute Distress Lungs: Reports: Normal Respiratory Effort GI/Abdominal Exam: Soft, No Distention Extremities: Pedal Edema (both lower legs ), Other (left arm ) Skin: Reports: Warm, Dry Psy/Mental Status: Reports: Alert, Normal Affect
--- NOTE | 2021-05-26 09:56 | CRLCR ---
For Patients: As a result of the Century Cures Act, medical imaging exams and procedure reports are released immediately into your electronic medical record. You may view this report before your referring provider. If you have questions, please contact your health care provider. Indication: Follow up bilateral effusions Comparison: Single-view chest May 24, 2021 Technique: Single AP view chest Findings: There is hyperinflation and chronic interstitial change. Stable left basilar pleural effusion with demonstration of thoracostomy drain. Slightly increasing right basilar pleural effusion from comparison. Stable cardiac silhouette and left-sided Port-A-Cath. The bony thorax is grossly intact. Impression: Left greater than right basilar pleural effusions with likely adjacent compressive atelectasis stable on the left and slightly increased on the right from comparison. Dictated by Jake Green MD @ 05/26/2021 9:54:28 AM (Electronically Signed)
== END 2021-05-26 10:08 | disposition home health service (06) | DRG 840 ==
LOC: JP.ED 14:33 → JP.MS 18:59
PROVIDERS: ADMIT Hospitalist; ATTEND Internal Medicine
PROC: 07DR3ZX Extraction of Iliac Bone Marrow, Percutaneous Approach, Diagnostic (ICD-10-PCS; 2021-05-25)
PROC: 0Q933ZZ Drainage of Left Pelvic Bone, Percutaneous Approach (ICD-10-PCS; 2021-05-25)
PROC: 0W993ZZ Drainage of Right Pleural Cavity, Percutaneous Approach (ICD-10-PCS; principal; 2021-05-26)
DX: C85.10 Unspecified B-cell lymphoma, unspecified site (principal); C85.90 Non-Hodgkin lymphoma, unspecified, unspecified site; H54.7 Unspecified visual loss; E78.00 Pure hypercholesterolemia, unspecified; J18.9 Pneumonia, unspecified organism; J96.21 Acute and chronic respiratory failure with hypoxia; E43 Unspecified severe protein-calorie malnutrition; Z88.5 Allergy status to narcotic agent; Z79.84 Long term (current) use of oral hypoglycemic drugs; Z79.82 Long term (current) use of aspirin; Z79.899 Other long term (current) drug therapy; J90 Pleural effusion, not elsewhere classified; N17.9 Acute kidney failure, unspecified; C85.99 Non-Hodgkin lymphoma, unspecified, extranodal and solid organ sites; E11.9 Type 2 diabetes mellitus without complications; Z20.822 Contact with and (suspected) exposure to COVID-19; E78.5 Hyperlipidemia, unspecified; J45.909 Unspecified asthma, uncomplicated; I10 Essential (primary) hypertension; E66.9 Obesity, unspecified; Z68.37 Body mass index [BMI] 37.0-37.9, adult; E86.0 Dehydration; F17.210 Nicotine dependence, cigarettes, uncomplicated; Z98.42 Cataract extraction status, left eye; Z98.41 Cataract extraction status, right eye; Z87.81 Personal history of (healed) traumatic fracture; Z87.19 Personal history of other diseases of the digestive system; Z98.890 Other specified postprocedural states; Z79.4 Long term (current) use of insulin
CPT/HCPCS: 36415; 71045 ×2; 71250; 80053; 84145; 85027; 86140; 87070; 87205; 99285; J7030 ×2; U0002; 51701; 80048; 81001; 82947; 83735; 84550; 85025; 87015; 87040; 87086; 87102; 87116; 87206; 87220; 93971-26; 93971-LT; 94762; 97161-GP; A9270-GY; J1644; J1650; J1815; J1956; J2001; J2543; J3370; J7050; P9047

== ENCOUNTER 2021-06-02 07:22 | Observation (INO) | payer MEDICARE ==
[2021-06-02] MEDS ORDERED: Sodium Chloride 0.9% 10 ML Syringe FLUSH PRN ×2 (07:23→14:09)
--- NOTE | 2021-06-02 07:35 | EDM.PDOC ---
ED HPI GENERAL MEDICAL PROBLEM - General Chief Complaint: General Stated Complaint: WEAKNESS Time Seen by Provider: 06/02/21 07:23 Source of Information: Reports: Patient History Limitations: Reports: No Limitations - History of Present Illness INITIAL COMMENTS - FREE TEXT/NARRATIVE: Mackenzie is a 76-year-old female presenting to the ED via [facility] with complaint of increasing generalized weakness. Patient has a history significant for lymphoma and was scheduled to see her oncologist today. She has been complaining of increasing weakness over the last several days. Today she had a fall in the bathroom with some urinary incontinence. She is very vague in her answers. Reviewed her [facility] medical records showing that she has large diffuse B-cell lymphoma stage IV with tumor genotyping BCL6 rearrangement 92% no MYC or BCL-2 rearrangement or fusion of MYC/IGH. - Related Data Allergies Allergy/AdvReac Type Severity Reaction Status Date / Time codeine AdvReac Vomiting Verified 06/02/21 07:35 Home Meds: Home Meds Lovastatin 20 mg PO DAILY 04/21/21 [History] amLODIPine [Norvasc] 10 mg PO DAILY 04/21/21 [History] glipiZIDE [Glucotrol XL] 10 mg PO BID 04/21/21 [History] lisinopriL [Lisinopril] 10 mg PO DAILY 04/21/21 [History] metFORMIN [Glucophage] 1,000 mg PO BID 04/21/21 [History] Aspirin [Halfprin] 81 mg PO DAILY 04/28/21 [History] Multivitamin [Multi-Vitamin Daily] 1 each PO DAILY 04/28/21 [History] Levofloxacin 750 mg PO Q48H #2 tablet 05/26/21 [Rx] allopurinoL [Zyloprim] 300 mg PO DAILY #30 tablet 05/26/21 [Rx] Benzonatate 100 mg PO Q6HR PRN 06/02/21 [History] Past Medical History HEENT History: Reports: Impaired Vision Cardiovascular History: Reports: High Cholesterol, Hypertension Respiratory History: Reports: Asthma, Other (See Below) Other Respiratory History: pleural effusion Gastrointestinal History: Reports: Hemorrhoids Genitourinary History: Reports: None [employer] History: Reports: Musculoskeletal History: Reports: Fracture, Other (See Below) Other Musculoskeletal History: left wrist fracture Endocrine/Metabolic History: Reports: Diabetes, Type II, Obesity/BMI 30+ Oncologic (Cancer) History: Reports: Lymphoma - Infectious Disease History Infectious Disease History: Reports: Chicken Pox, Influenza, Measles, Mumps, Pertussis (Whooping Cough) - Past Surgical History Head Surgeries/Procedures: Reports: None HEENT Surgical History: Reports: Cataract Surgery Cardiovascular Surgical History: Reports: None Respiratory Surgical History: Reports: Thoracentesis GI Surgical History: Reports: None Endocrine Surgical History: Reports: None Musculoskeletal Surgical History: Reports: None Oncologic Surgical History: Reports: Other (See Below) Other Oncologic Surgeries/Procedures: lymph node biopsy Dermatological Surgical History: Reports: None Social & Family History - Family History Oncologic: Reports: Other (See Below) Other Oncologic Family History: mother-stomach cancer - Caffeine Use Caffeine Use: Reports: None ED ROS GENERAL - Review of Systems Review Of Systems: See Below Constitutional: Reports: Weakness HEENT: Reports: No Symptoms Respiratory: Reports: Shortness of Breath Cardiovascular: Reports: No Symptoms Endocrine: Reports: No Symptoms GI/Abdominal: Reports: No Symptoms : Reports: No Symptoms Musculoskeletal: Reports: No Symptoms Skin: Reports: Pallor Neurological: Reports: Weakness (Generalized. Today the patient was unable to get off the floor even with the assistance of her ) Psychiatric: Reports: Anxiety (Marked anxiety), Depression Hematologic/Lymphatic: Reports: Other (Diffuse large B-cell lymphoma stage IV) Immunologic: Reports: No Symptoms ED EXAM, GENERAL - Physical Exam Exam: See Below Exam Limited By: No Limitations General Appearance: Alert, Anxious, Mild Distress Eye Exam: Bilateral Eye: EOMI, PERRL Throat/Mouth: Normal Voice, No Airway Compromise, Other (Dry mucous membranes) Head: Atraumatic, Normocephalic Neck: Normal Inspection, Supple, Lymphadenopathy (L) (Supraclavicular lymphadenopathy) Respiratory/Chest: No Respiratory Distress, No Accessory Muscle Use, Decreased Breath Sounds (Diminished bibasilar breath sounds). No: Rales, Rhonchi, Wheezing Cardiovascular: Normal Peripheral Pulses, Regular Rate, Rhythm, No Murmur Peripheral Pulses: 2+: Radial (L), Radial (R), Posterior Tibial (L), Posterior Tibial (R) GI/Abdominal: Normal Bowel Sounds, Soft, Non-Tender Back Exam: Normal Inspection Extremities: Normal Range of Motion, Pedal Edema (2+ bilateral pedal edema) Neurological: Alert, Oriented, Normal Cognition, No Motor/Sensory Deficits Psychiatric: Anxious (Extremely anxious), Depressed Mood (Dysphoria) Skin Exam: Warm, Dry Lymphatic: Adenopathy (Bilateral inguinal adenopathy, left supraclavicular adenopathy) Course - Vital Signs Last Recorded V/S: Last Vital Signs Temp 36.1 C 06/02/21 07:27 Pulse 90 06/02/21 09:20 Resp 16 06/02/21 09:20 BP 133/58 L 06/02/21 09:20 Pulse Ox 95 06/02/21 09:20 - Orders/Labs/Meds Orders: Active Orders 24 hr Category Date Time Status Chest 1V Frontal [CR] Stat Exams 06/02/21 11:11 Taken Sodium Chloride 0.9% [Normal Saline] 1,000 ml Med 06/02/21 08:30 Active IV ASDIRECTED Sodium Chloride 0.9% [Saline Flush] Med 06/02/21 07:23 Active 10 ml FLUSH ASDIRECTED PRN Saline Lock Insert [OM.PC] Routine Oth 06/02/21 07:23 Ordered Medication Orders Sodium Chloride (Normal Saline) 1,000 mls @ 999 mls/hr IV ASDIRECTED THIAGO Last Admin: 06/02/21 08:27 Dose: 999 mls/hr Documented by: PREILOR Sodium Chloride (Sodium Chloride 0.9% 10 Ml Syringe) 10 ml FLUSH ASDIRECTED PRN PRN Reason: Keep Vein Open Last Admin: 06/02/21 07:52 Dose: 10 ml Documented by: PREILOR Labs: Laboratory Tests 06/02/21 06/02/21 06/02/21 Range/Units 07:43 07:43 07:58 WBC (4.5-11.0) K/uL RBC (3.30-5.50) M/uL Hgb (12.0-15.0) g/dL Hct (36.0-48.0) % MCV (80-98) fL MCH (27-31) pg MCHC (32-36) % Plt Count (150-400) K/uL Add Manual Diff Neutrophils % (Manual) (36-66) % Lymphocytes % (Manual) (24-44) % Monocytes % (Manual) (2-6) % Eosinophils % (Manual) (2-4) % Hypersegmented Neuts Sodium (140-148) mmol/L Potassium (3.6-5.2) mmol/L Chloride (100-108) mmol/L Carbon Dioxide (21-32) mmol/L Anion Gap (5.0-14.0) mmol/L BUN (7-18) mg/dL Creatinine (0.6-1.0) mg/dL Est Cr Clr Drug Dosing Estimated GFR (MDRD) (>60) Glucose (74-106) mg/dL Lactic Acid (0.4-2.0) mmol/L Uric Acid 3.4 (2.6-6.2) mg/dL Calcium (8.5-10.1) mg/dL Total Bilirubin (0.2-1.0) mg/dL AST (15-37) U/L ALT (12-78) U/L Alkaline Phosphatase (46-116) U/L C-Reactive Protein (0.0-0.3) mg/dL Total Protein (6.4-8.2) g/dL Albumin (3.4-5.0) g/dL Globulin (2.3-3.5) g/dL Albumin/Globulin Ratio (1.2-2.2) Urine Color Yellow (YELLOW) Urine Appearance Clear (CLEAR) Urine pH 5.0 (5.0-8.0) Ur Specific [place] 1.015 (1.008-1.030) Urine Protein Negative (NEGATIVE) mg/dL Urine Glucose (UA) 500 H (NEGATIVE) mg/dL Urine Ketones Negative (NEGATIVE) mg/dL Urine Occult Blood Negative (NEGATIVE) Urine Nitrite Negative (NEGATIVE) Urine Bilirubin Negative (NEGATIVE) Urine Urobilinogen 0.2 (0.2-1.0) EU/dL Ur Leukocyte Esterase Negative (NEGATIVE) Urine RBC 0-5 (0-5) Urine WBC Not seen (0-5) Ur Epithelial Cells Not seen Amorphous Sediment Rare Urine Bacteria Not seen Urine Mucus Not seen Ketones (NEGATIVE) SARS-CoV-2 RNA (CLARI) Negative (NEGATIVE) 06/02/21 06/02/21 06/02/21 Range/Units 08:00 08:00 08:00 WBC 7.7 (4.5-11.0) K/uL RBC 4.35 (3.30-5.50) M/uL Hgb 11.0 L (12.0-15.0) g/dL Hct 34.9 L (36.0-48.0) % MCV 80 (80-98) fL MCH 25 L (27-31) pg MCHC 32 (32-36) % Plt Count 101 L (150-400) K/uL Add Manual Diff Yes Neutrophils % (Manual) 97 H (36-66) % Lymphocytes % (Manual) 1 L (24-44) % Monocytes % (Manual) 0 L (2-6) % Eosinophils % (Manual) 2 (2-4) % Hypersegmented Neuts Rare Sodium 136 L (140-148) mmol/L Potassium 5.0 (3.6-5.2) mmol/L Chloride 102 (100-108) mmol/L Carbon Dioxide 35 H (21-32) mmol/L Anion Gap 4.0 L (5.0-14.0) mmol/L BUN 36 H (7-18) mg/dL Creatinine 0.9 (0.6-1.0) mg/dL Est Cr Clr Drug Dosing TNP Estimated GFR (MDRD) > 60 (>60) Glucose 319 H (74-106) mg/dL Lactic Acid 1.8 (0.4-2.0) mmol/L Uric Acid (2.6-6.2) mg/dL Calcium 9.5 (8.5-10.1) mg/dL Total Bilirubin 0.3 (0.2-1.0) mg/dL AST 13 L (15-37) U/L ALT 20 (12-78) U/L Alkaline Phosphatase 84 (46-116) U/L C-Reactive Protein 4.99 H (0.0-0.3) mg/dL Total Protein 4.4 L (6.4-8.2) g/dL Albumin 1.9 L (3.4-5.0) g/dL Globulin 2.5 (2.3-3.5) g/dL Albumin/Globulin Ratio 0.8 L (1.2-2.2) Urine Color (YELLOW) Urine Appearance (CLEAR) Urine pH (5.0-8.0) Ur Specific [place] (1.008-1.030) Urine Protein (NEGATIVE) mg/dL Urine Glucose (UA) (NEGATIVE) mg/dL Urine Ketones (NEGATIVE) mg/dL Urine Occult Blood (NEGATIVE) Urine Nitrite (NEGATIVE) Urine Bilirubin (NEGATIVE) Urine Urobilinogen (0.2-1.0) EU/dL Ur Leukocyte Esterase (NEGATIVE) Urine RBC (0-5) Urine WBC (0-5) Ur Epithelial Cells Amorphous Sediment Urine Bacteria Urine Mucus Ketones (NEGATIVE) SARS-CoV-2 RNA (CLARI) (NEGATIVE) 06/02/21 Range/Units 08:26 WBC (4.5-11.0) K/uL RBC (3.30-5.50) M/uL Hgb (12.0-15.0) g/dL Hct (36.0-48.0) % MCV (80-98) fL MCH (27-31) pg MCHC (32-36) % Plt Count (150-400) K/uL Add Manual Diff Neutrophils % (Manual) (36-66) % Lymphocytes % (Manual) (24-44) % Monocytes % (Manual) (2-6) % Eosinophils % (Manual) (2-4) % Hypersegmented Neuts Sodium (140-148) mmol/L Potassium (3.6-5.2) mmol/L Chloride (100-108) mmol/L Carbon Dioxide (21-32) mmol/L Anion Gap (5.0-14.0) mmol/L BUN (7-18) mg/dL Creatinine (0.6-1.0) mg/dL Est Cr Clr Drug Dosing Estimated GFR (MDRD) (>60) Glucose (74-106) mg/dL Lactic Acid (0.4-2.0) mmol/L Uric Acid (2.6-6.2) mg/dL Calcium (8.5-10.1) mg/dL Total Bilirubin (0.2-1.0) mg/dL AST (15-37) U/L ALT (12-78) U/L Alkaline Phosphatase (46-116) U/L C-Reactive Protein (0.0-0.3) mg/dL Total Protein (6.4-8.2) g/dL Albumin (3.4-5.0) g/dL Globulin (2.3-3.5) g/dL Albumin/Globulin Ratio (1.2-2.2) Urine Color (YELLOW) Urine Appearance (CLEAR) Urine pH (5.0-8.0) Ur Specific [place] (1.008-1.030) Urine Protein (NEGATIVE) mg/dL Urine Glucose (UA) (NEGATIVE) mg/dL Urine Ketones (NEGATIVE) mg/dL Urine Occult Blood (NEGATIVE) Urine Nitrite (NEGATIVE) Urine Bilirubin (NEGATIVE) Urine Urobilinogen (0.2-1.0) EU/dL Ur Leukocyte Esterase (NEGATIVE) Urine RBC (0-5) Urine WBC (0-5) Ur Epithelial Cells Amorphous Sediment Urine Bacteria Urine Mucus Ketones Negative (NEGATIVE) SARS-CoV-2 RNA (CLARI) (NEGATIVE) Meds: Medications Generic Name Dose Route Start Last Admin Trade Name Freq PRN Reason Stop Dose Admin Sodium Chloride 1,000 mls @ 999 mls/hr 06/02/21 08:30 06/02/21 08:27 Normal Saline IV 999 mls/hr ASDIRECTED THIAGO Administration Sodium Chloride 10 ml 06/02/21 07:23 06/02/21 07:52 Sodium Chloride 0.9% 10 Ml Syringe FLUSH 10 ml ASDIRECTED PRN Administration Keep Vein Open - Re-Assessments/Exams Free Text/Narrative Re-Assessment/Exam: 06/02/21 11:18 I reviewed the patient's labs showing a leukocyte count at 7.5, hemoglobin of 11.0, hematocrit of 34.9 and a platelet count of 101,000. The comprehensive metabolic panel was unremarkable with a sodium 136, potassium 5.0, chloride of 102, bicarbonate of 35, BUN of 36 with a creatinine of 0.9 and a glucose of 319. Obviously the BUN and creatinine point towards significant dehydration and the patient's elevated blood glucose is consistent with her type 2 diabetes poorly controlled. The patient is ketone negative. Her urinalysis is unremarkable. Her C-reactive protein is elevated at 4.99. Chest x-ray was obtained showing significant bilateral pleural effusions. The patient has been doing thoracentesis drainage through a Pleurx cath that was implanted in the left chest every other day. There is at least a liter of fluid in there. The right pleural effusion seems to have enlarged since 05/26/2021 with over a liter of fluid as well. The patient is significantly hypoxic requiring 4 L by close fitting facemask. We discussed the pros and cons of doing a thoracentesis on the right. I did talk with oncology at [facility] who recommended that we do a thoracentesis on the right to evacuate that pleural effusion and help the patient breathe a little easier. The difficulty is the patient is generally declined in her overall strength and is having increasing difficulty with managing herself at home. The patient's can only help so much but she does have some home health care has been set up, although they have not really participated in the patient's care yet. In addition, the patient's glucose control has been problematic since initiating chemotherapy. The patient's has yet to lease picker her glucometer or get instructions on how to operate it. Today her glucose is 319 but it has been as high as 500. The patient does not appear to be in DKA with a negative ketones and mildly elevated bicarbonate. The patient was given a liter of IV normal saline to try to combat her dehydration. We also proceeded with thoracentesis taking off 1.1 L of fluid which was pink and lipemic. The patient is breathing a little easier. My concern is that the patient still is not able to really ambulate on her own, however, she has no interest in going to a skilled care facility which is what she would require in her current state. 06/02/21 12:37 patient is really not able to ambulate at this time. She is generally too weak. I discussed the case with Dr. Omalley was agreed to admit the patient under observation. Departure - Departure Time of Disposition: 12:41 Disposition: Refer to Observation Clinical Impression: Generalized weakness, Large B-cell lymphoma, Bilateral pleural effusion Type 2 diabetes mellitus Qualifiers: Diabetes mellitus terminal press operator insulin use: without terminal press operator use Diabetes mellitus complication status: without complication Qualified Code(s): E11.9 - Type 2 diabetes mellitus without complications Hyperglycemia due to type 2 diabetes mellitus Qualifiers: Diabetes mellitus chcf insulin use: without chcf use Qualified Code(s): E11.65 - Type 2 diabetes mellitus with hyperglycemia - Discharge Information Referrals: Timbo Vidal MD [Primary Care Provider] - Forms: ED Department Discharge Sepsis Event Note (ED) - Focused Exam Vital Signs: Vital Signs Temp Pulse Resp BP Pulse Ox 06/02/21 09:20 90 16 133/58 L 95 06/02/21 08:20 96 16 133/58 L 96 06/02/21 07:27 36.1 C 86 25 H 138/67 94 L - Problem List & Annotations (1) Bilateral pleural effusion SNOMED Code(s): 008203624 Code(s): J90 - PLEURAL EFFUSION, NOT ELSEWHERE CLASSIFIED Status: Acute Priority: High Current Visit: Yes (2) Large B-cell lymphoma SNOMED Code(s): 016064877 Code(s): C85.10 - UNSPECIFIED B-CELL LYMPHOMA, UNSPECIFIED SITE Status: Chronic Priority: High Current Visit: Yes (3) Generalized weakness SNOMED Code(s): 70726732 Code(s): R53.1 - WEAKNESS Status: Acute Priority: High Current Visit: Yes (4) Hyperglycemia due to type 2 diabetes mellitus SNOMED Code(s): 801312378882022, 736078370755438 Code(s): E11.65 - TYPE 2 DIABETES MELLITUS WITH HYPERGLYCEMIA Status: C hronic Priority: High Current Visit: Yes Qualifiers: Diabetes mellitus terminal press operator insulin use: without chcf use Qualified Code(s): E11.65 - Type 2 diabetes mellitus with hyperglycemia - Problem List Review Problem List Initiated/Reviewed/Updated: Yes - My Orders Last 24 Hours: My Active Orders 06/02/21 07:23 Sodium Chloride 0.9% [Saline Flush] 10 ml FLUSH ASDIRECTED PRN Saline Lock Insert [OM.PC] Routine 06/02/21 08:30 Sodium Chloride 0.9% [Normal Saline] 1,000 ml IV ASDIRECTED 06/02/21 11:11 Chest 1V Frontal [CR] Stat - Assessment/Plan Last 24 Hours: My Active Orders 06/02/21 07:23 Sodium Chloride 0.9% [Saline Flush] 10 ml FLUSH ASDIRECTED PRN Saline Lock Insert [OM.PC] Routine 06/02/21 08:30 Sodium Chloride 0.9% [Normal Saline] 1,000 ml IV ASDIRECTED 06/02/21 11:11 Chest 1V Frontal [CR] Stat Thoracentesis - Thoracentesis Thoracentesis Indication: pleural effusion Location: Right Skin prep: Sterile Drapes, Chlorhexidine Ultrasound guided: Yes Local anesthesia: lidocaine 1 % Local anesthesia volume: 10cc Number of Attempts: 2 Device Used: 8 Fr kit device Fluid: other ([place], lipemic) Aspirated volume (mls): 1,100 Chest xray: Yes Complications: No
[2021-06-02] MEDS ORDERED: Sodium Chloride 0.9% 1,000 ML IV SCH (08:30)
--- NOTE | 2021-06-02 08:48 | CR ---
CHEST: Portable 06/02/2021 at 8:08 AM CLINICAL HISTORY:Hypoxia COMPARISON: 05/26/2021 FINDINGS: Patient is rotated to the left. Left subclavian catheter remains in place. There is a left chest tube in the lower hemithorax. Is residual pleural fluid and/or pleural thickening as well as some left lower lobe airspace disease. This appearance is similar to prior study. There is also slight increase in right pleural effusion and right lower lobe airspace disease. IMPRESSION: Left subclavian catheter and left chest tube remain in place Bilateral pleural effusions and/or pleural thickening slightly greater on the right since current study Persistent bibasal airspace disease left greater than right similar to prior study
--- NOTE | 2021-06-02 13:04 | PCM.HP.2 ---
H&P History of Present Illness - General Date of Service: 06/02/21 Admit Problem/Dx: Admission Diagnosis/Problem Admission Diagnosis/Problem Weakness Source of Information: Patient, Family, Old Records, Provider, RN Notes Reviewed History Limitations: Reports: No Limitations - History of Present Illness Initial Comments - Free Text/Narative: Ms. Centeno been a 76-year-old woman who was admitted to observation status through the emergency department because of profound weakness. She has a diagnosis of widespread lymphoma and did receive her first dose of chemotherapy last May 28. Lymphoma has been complicated by bilateral pleural effusions, there is a Pleurx drain on the left. She has been somewhat more short of breath but has been very weak with frequent falls and unable to get up off of the floor even with assistance from her . Laboratory tests have been obtained in the emergency department and are essentially unremarkable. She did have increased effusion on the right and did undergo thoracentesis while in the emergency department. She is due to have her left effusion drained from her Pleurx drain today. She is not safe for discharged home so will be admitted to observation status. - Related Data Allergies/Adverse Reactions: Allergies Allergy/AdvReac Type Severity Reaction Status Date / Time codeine AdvReac Vomiting Verified 06/02/21 07:35 Home Medications: Home Meds Lovastatin 20 mg PO DAILY 04/21/21 [History] amLODIPine [Norvasc] 10 mg PO DAILY 04/21/21 [History] glipiZIDE [Glucotrol XL] 10 mg PO BID 04/21/21 [History] lisinopriL [Lisinopril] 10 mg PO DAILY 04/21/21 [History] metFORMIN [Glucophage] 1,000 mg PO BID 04/21/21 [History] Aspirin [Halfprin] 81 mg PO DAILY 04/28/21 [History] Multivitamin [Multi-Vitamin Daily] 1 each PO DAILY 04/28/21 [History] Levofloxacin 750 mg PO Q48H #2 tablet 05/26/21 [Rx] allopurinoL [Zyloprim] 300 mg PO DAILY #30 tablet 05/26/21 [Rx] Benzonatate 100 mg PO Q6HR PRN 06/02/21 [History] Past Medical History HEENT History: Reports: Impaired Vision Cardiovascular History: Reports: High Cholesterol, Hypertension Respiratory History: Reports: Asthma, Other (See Below) Other Respiratory History: pleural effusion Gastrointestinal History: Reports: Hemorrhoids Genitourinary History: Reports: None 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: Musculoskeletal History: Reports: Fracture, Other (See Below) Other Musculoskeletal History: left wrist fracture Endocrine/Metabolic History: Reports: Diabetes, Type II, Obesity/BMI 30+ Oncologic (Cancer) History: Reports: Lymphoma - Infectious Disease History Infectious Disease History: Reports: Chicken Pox, Influenza, Measles, Mumps, Pertussis (Whooping Cough) - Past Surgical History Head Surgeries/Procedures: Reports: None HEENT Surgical History: Reports: Cataract Surgery Cardiovascular Surgical History: Reports: None Respiratory Surgical History: Reports: Thoracentesis GI Surgical History: Reports: None Endocrine Surgical History: Reports: None Musculoskeletal Surgical History: Reports: None Oncologic Surgical History: Reports: Other (See Below) Other Oncologic Surgeries/Procedures: lymph node biopsy Dermatological Surgical History: Reports: None Social & Family History - Family History Oncologic: Reports: Other (See Below) Other Oncologic Family History: mother-stomach cancer - Tobacco Use Tobacco Use Status *Q: Never Tobacco User - Caffeine Use Caffeine Use: Reports: None - Recreational Drug Use Recreational Drug Use: No H&P Review of Systems - Review of Systems: Review Of Systems: See Below General: Reports: Malaise, Weakness, Fatigue. Denies: Fever, Chills HEENT: Reports: No Symptoms Pulmonary: Reports: Shortness of Breath. Denies: Wheezing, Pleuritic Chest Pain, Cough, Sputum, Hemoptysis Cardiovascular: Reports: Dyspnea on Exertion, Edema. Denies: Chest Pain, Palpitations, Orthopnea, PND, Lightheadedness Gastrointestinal: Reports: No Symptoms Genitourinary: Reports: No Symptoms Musculoskeletal: Reports: No Symptoms Skin: Reports: No Symptoms Psychiatric: Reports: No Symptoms Neurological: Reports: No Symptoms Hematologic/Lymphatic: Reports: No Symptoms Immunologic: Reports: No Symptoms Exam - Exam Exam: See Below - Vital Signs Vital Signs: Last Vital Signs Temp 96.9 F 06/02/21 07:27 Pulse 95 06/02/21 12:20 Resp 20 06/02/21 12:20 BP 122/52 L 06/02/21 12:20 Pulse Ox 96 06/02/21 12:20 Weight: 180 lb - Exam Quality Assessment: Supplemental Oxygen, DVT Prophylaxis General: Alert, Oriented, Cooperative, Moderate Distress HEENT: Conjunctiva Clear, Hearing Intact, Mucosa Moist & [place], Normal Nasal Septum, Posterior Pharynx Clear, Pupils Equal Neck: Supple, Trachea Midline, +2 Carotid Pulse wo Bruit Lungs: Clear to Auscultation, Normal Respiratory Effort, Decreased Breath Sounds Cardiovascular: Regular Rate, Regular Rhythm, Normal S1, Normal S2. No: Systolic Murmur, Diastolic Murmur GI/Abdominal Exam: Soft, Non-Tender, No Organomegaly, No Distention Extremities: Non-Tender, Pedal Edema Skin: Warm, Dry, Intact Neurological: Cranial Nerves Intact, Strength Equal Bilateral, Normal Speech, Normal Tone, Sensation Intact. No: Focal Deficit Neuro Extensive - Mental Status: Alert, Oriented x3, Normal Mood/Affect, Normal Cognition, Memory Intact - Patient Data Lab Results Last 24 hrs: Laboratory Results - last 24 hr 06/02/21 06/02/21 06/02/21 Range/Units 07:43 07:43 07:58 WBC (4.5-11.0) K/uL RBC (3.30-5.50) M/uL Hgb (12.0-15.0) g/dL Hct (36.0-48.0) % MCV (80-98) fL MCH (27-31) pg MCHC (32-36) % Plt Count (150-400) K/uL Add Manual Diff Neutrophils % (Manual) (36-66) % Lymphocytes % (Manual) (24-44) % Monocytes % (Manual) (2-6) % Eosinophils % (Manual) (2-4) % Hypersegmented Neuts Sodium (140-148) mmol/L Potassium (3.6-5.2) mmol/L Chloride (100-108) mmol/L Carbon Dioxide (21-32) mmol/L Anion Gap (5.0-14.0) mmol/L BUN (7-18) mg/dL Creatinine (0.6-1.0) mg/dL Est Cr Clr Drug Dosing Estimated GFR (MDRD) (>60) Glucose (74-106) mg/dL Lactic Acid (0.4-2.0) mmol/L Uric Acid 3.4 (2.6-6.2) mg/dL Calcium (8.5-10.1) mg/dL Total Bilirubin (0.2-1.0) mg/dL AST (15-37) U/L ALT (12-78) U/L Alkaline Phosphatase (46-116) U/L C-Reactive Protein (0.0-0.3) mg/dL Total Protein (6.4-8.2) g/dL Albumin (3.4-5.0) g/dL Globulin (2.3-3.5) g/dL Albumin/Globulin Ratio (1.2-2.2) Urine Color Yellow (YELLOW) Urine Appearance Clear (CLEAR) Urine pH 5.0 (5.0-8.0) Ur Specific [place] 1.015 (1.008-1.030) Urine Protein Negative (NEGATIVE) mg/dL Urine Glucose (UA) 500 H (NEGATIVE) mg/dL Urine Ketones Negative (NEGATIVE) mg/dL Urine Occult Blood Negative (NEGATIVE) Urine Nitrite Negative (NEGATIVE) Urine Bilirubin Negative (NEGATIVE) Urine Urobilinogen 0.2 (0.2-1.0) EU/dL Ur Leukocyte Esterase Negative (NEGATIVE) Urine RBC 0-5 (0-5) Urine WBC Not seen (0-5) Ur Epithelial Cells Not seen Amorphous Sediment Rare Urine Bacteria Not seen Urine Mucus Not seen Ketones (NEGATIVE) SARS-CoV-2 RNA (CLARI) Negative (NEGATIVE) 06/02/21 06/02/21 06/02/21 Range/Units 08:00 08:00 08:00 WBC 7.7 (4.5-11.0) K/uL RBC 4.35 (3.30-5.50) M/uL Hgb 11.0 L (12.0-15.0) g/dL Hct 34.9 L (36.0-48.0) % MCV 80 (80-98) fL MCH 25 L (27-31) pg MCHC 32 (32-36) % Plt Count 101 L (150-400) K/uL Add Manual Diff Yes Neutrophils % (Manual) 97 H (36-66) % Lymphocytes % (Manual) 1 L (24-44) % Monocytes % (Manual) 0 L (2-6) % Eosinophils % (Manual) 2 (2-4) % Hypersegmented Neuts Rare Sodium 136 L (140-148) mmol/L Potassium 5.0 (3.6-5.2) mmol/L Chloride 102 (100-108) mmol/L Carbon Dioxide 35 H (21-32) mmol/L Anion Gap 4.0 L (5.0-14.0) mmol/L BUN 36 H (7-18) mg/dL Creatinine 0.9 (0.6-1.0) mg/dL Est Cr Clr Drug Dosing TNP Estimated GFR (MDRD) > 60 (>60) Glucose 319 H (74-106) mg/dL Lactic Acid 1.8 (0.4-2.0) mmol/L Uric Acid (2.6-6.2) mg/dL Calcium 9.5 (8.5-10.1) mg/dL Total Bilirubin 0.3 (0.2-1.0) mg/dL AST 13 L (15-37) U/L ALT 20 (12-78) U/L Alkaline Phosphatase 84 (46-116) U/L C-Reactive Protein 4.99 H (0.0-0.3) mg/dL Total Protein 4.4 L (6.4-8.2) g/dL Albumin 1.9 L (3.4-5.0) g/dL Globulin 2.5 (2.3-3.5) g/dL Albumin/Globulin Ratio 0.8 L (1.2-2.2) Urine Color (YELLOW) Urine Appearance (CLEAR) Urine pH (5.0-8.0) Ur Specific [place] (1.008-1.030) Urine Protein (NEGATIVE) mg/dL Urine Glucose (UA) (NEGATIVE) mg/dL Urine Ketones (NEGATIVE) mg/dL Urine Occult Blood (NEGATIVE) Urine Nitrite (NEGATIVE) Urine Bilirubin (NEGATIVE) Urine Urobilinogen (0.2-1.0) EU/dL Ur Leukocyte Esterase (NEGATIVE) Urine RBC (0-5) Urine WBC (0-5) Ur Epithelial Cells Amorphous Sediment Urine Bacteria Urine Mucus Ketones (NEGATIVE) SARS-CoV-2 RNA (CLARI) (NEGATIVE) 06/02/21 Range/Units 08:26 WBC (4.5-11.0) K/uL RBC (3.30-5.50) M/uL Hgb (12.0-15.0) g/dL Hct (36.0-48.0) % MCV (80-98) fL MCH (27-31) pg MCHC (32-36) % Plt Count (150-400) K/uL Add Manual Diff Neutrophils % (Manual) (36-66) % Lymphocytes % (Manual) (24-44) % Monocytes % (Manual) (2-6) % Eosinophils % (Manual) (2-4) % Hypersegmented Neuts Sodium (140-148) mmol/L Potassium (3.6-5.2) mmol/L Chloride (100-108) mmol/L Carbon Dioxide (21-32) mmol/L Anion Gap (5.0-14.0) mmol/L BUN (7-18) mg/dL Creatinine (0.6-1.0) mg/dL Est Cr Clr Drug Dosing Estimated GFR (MDRD) (>60) Glucose (74-106) mg/dL Lactic Acid (0.4-2.0) mmol/L Uric Acid (2.6-6.2) mg/dL Calcium (8.5-10.1) mg/dL Total Bilirubin (0.2-1.0) mg/dL AST (15-37) U/L ALT (12-78) U/L Alkaline Phosphatase (46-116) U/L C-Reactive Protein (0.0-0.3) mg/dL Total Protein (6.4-8.2) g/dL Albumin (3.4-5.0) g/dL Globulin (2.3-3.5) g/dL Albumin/Globulin Ratio (1.2-2.2) Urine Color (YELLOW) Urine Appearance (CLEAR) Urine pH (5.0-8.0) Ur Specific [place] (1.008-1.030) Urine Protein (NEGATIVE) mg/dL Urine Glucose (UA) (NEGATIVE) mg/dL Urine Ketones (NEGATIVE) mg/dL Urine Occult Blood (NEGATIVE) Urine Nitrite (NEGATIVE) Urine Bilirubin (NEGATIVE) Urine Urobilinogen (0.2-1.0) EU/dL Ur Leukocyte Esterase (NEGATIVE) Urine RBC (0-5) Urine WBC (0-5) Ur Epithelial Cells Amorphous Sediment Urine Bacteria Urine Mucus Ketones Negative (NEGATIVE) SARS-CoV-2 RNA (CLARI) (NEGATIVE) Result Diagrams: 06/02/21 08:00 06/02/21 08:00 Sepsis Event Note - Focused Exam Vital Signs: Vital Signs Temp Pulse Resp BP Pulse Ox 06/02/21 12:20 95 20 122/52 L 96 06/02/21 11:20 87 19 94/44 L 95 06/02/21 10:20 89 17 116/51 L 95 06/02/21 09:20 90 16 133/58 L 95 06/02/21 08:20 96 16 133/58 L 96 06/02/21 07:27 96.9 F 86 25 H 138/67 94 L *Q Meaningful Use (ADM) - VTE Risk Assess *Q Each Risk Factor Represents 1 Point: Swollen Legs, Current, Obesity ( BMI > 25 kg/m2) Total Score 1 Point Risk Factors: 2 Each Risk Factor Represents 2 Points: Malignancy (present or previous) Total Score 2 Point Risk Factors: 2 Each Risk Factor Represents 3 Points: None Total Score 3 Point Risk Factors: 0 Each Risk Factor Represents 5 Points: None Total Score 5 Point Risk Factors: 0 Venous Thromboembolism Risk Factor Score *Q: 4 Problem List Initiated/Reviewed/Updated: Yes Orders Last 24hrs: Active Orders 24 hr Category Date Time Status Patient Status Manage Transfer [TRANSFER] Routine ADT 06/02/21 12:58 Ordered Chest 1V Frontal [CR] Stat Exams 06/02/21 11:11 Taken Sodium Chloride 0.9% [Normal Saline] 1,000 ml Med 06/02/21 08:30 Active IV ASDIRECTED Sodium Chloride 0.9% [Saline Flush] Med 06/02/21 07:23 Active 10 ml FLUSH ASDIRECTED PRN Saline Lock Insert [OM.PC] Routine Oth 06/02/21 07:23 Ordered Resuscitation Status Routine Resus Stat 06/02/21 12:59 Ordered Medication Orders Sodium Chloride (Normal Saline) 1,000 mls @ 999 mls/hr IV ASDIRECTED THIAGO Last Admin: 06/02/21 08:27 Dose: 999 mls/hr Documented by: PREILOR Sodium Chloride (Sodium Chloride 0.9% 10 Ml Syringe) 10 ml FLUSH ASDIRECTED PRN PRN Reason: Keep Vein Open Last Admin: 06/02/21 07:52 Dose: 10 ml Documented by: PREILOR Assessment/Plan Comment:: ASSESSMENT AND PLAN GENERALIZED WEAKNESS-secondary to lymphoma and lack of activity. Not safe for discharged home today. 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 Complicated by bilateral pleural effusions BILATERAL PLEURAL EFFUSIONS-status post right thoracentesis today while in the emergency department -Drain left pleural effusion today via Pleurx drain PERIPHERAL EDEMA -Furosemide 20 mg IV today -Reassess in a.m. -Discontinue amlodipine TYPE 2 DIABETES MELLITUS -Hold glipizide -Continue Metformin -4 times daily glucometers -Low-dose sliding scale Humalog HYPERTENSION -Monitor blood pressure off of amlodipine MAINTENANCE ISSUES -DVT prophylaxis; Lovenox 40 mg subcu daily -GI prophylaxis; not indicated -Bisohp catheter; not indicated -Nutrition; regular diet -Nicotine dependence; not required CODE STATUS-FULL CODE ADMISSION STATUS-this patient will be admitted to observation status, expect no more than a one night hospital stay for evaluation and management of problems as outlined above. DISPOSITION-anticipate discharge to home after the hospital stay. PRIMARY CARE PROVIDER-Dr. Vidal - Mortality Measure Prognosis:: Poor
--- NOTE | 2021-06-02 14:07 | CR ---
CHEST: Portable 06/02/2021 at 12:04 PM CLINICAL HISTORY:Postthoracentesis COMPARISON:Earlier same day FINDINGS: There is a decrease in the right pleural effusion compared to prior study. There is no pneumothorax. Left chest tube remains in place. Impression: Status post right thoracentesis with a decrease in right pleural fluid.
[2021-06-02] MEDS ORDERED: 50% Dextrose in Water 50 ML Syringe IV PRN (14:09)
[2021-06-02] MEDS ORDERED: Glucose Gel 15 GM in 37.5 GM Tube PO PRN (14:09)
[2021-06-02] MEDS ORDERED: Acetaminophen 325 MG Tab PO PRN (14:09)
[2021-06-02] MEDS ORDERED: Polyethylene Glycol 3350 Powder 17 GM Packet PO PRN (14:09)
[2021-06-02] MEDS ORDERED: Ondansetron 4 MG/2 ML SDV IV PRN (14:09)
[2021-06-02] MEDS: Enoxaparin 40 MG/0.4 ML Syringe SUBCUT SCH (15:10)
[2021-06-02] MEDS ORDERED: Furosemide 20 MG/2 ML VIAL IVPUSH ONE (15:15)
[2021-06-02] MEDS: metFORMIN 500 MG Tab PO SCH (18:52)
[2021-06-02] MEDS: Insulin Lispro 100 Unit/ML 3 ML KwikPen SUBCUT SCH ×2 (18:54→21:20)
[2021-06-03] MEDS: Insulin Lispro 100 Unit/ML 3 ML KwikPen SUBCUT SCH ×4 (08:07→21:06)
[2021-06-03] MEDS: metFORMIN 500 MG Tab PO SCH (08:10)
[2021-06-03] MEDS: Enoxaparin 40 MG/0.4 ML Syringe SUBCUT SCH (08:18)
[2021-06-03] MEDS: Aspirin 81 MG Tab.EC PO SCH (08:18)
[2021-06-03] MEDS ORDERED: Lisinopril 10 MG Tab PO SCH (09:00)
[2021-06-03] MEDS ORDERED: amLODIPine 5 MG Tab PO SCH (09:00)
[2021-06-03] MEDS ORDERED: Allopurinol 100 MG Tab PO SCH (09:00)
--- NOTE | 2021-06-03 10:56 | PCM.PN ---
- General Info Date of Service: 06/03/21 Subjective Update: Ms. Centeno has remained stable since admission yesterday. She did participate in physical therapy this morning and has been transferring with assistance and walking short distances. Functional Status: Reports: Tolerating Diet, Ambulating, Urinating - Review of Systems General: Reports: Weakness, Fatigue. Denies: Fever, Chills Pulmonary: Reports: No Symptoms Cardiovascular: Reports: No Symptoms Gastrointestinal: Reports: No Symptoms Genitourinary: Reports: No Symptoms - Patient Data Vitals - Most Recent: Last Vital Signs Temp 98.7 F 06/03/21 06:56 Pulse 89 06/03/21 06:56 Resp 16 06/03/21 06:56 BP 122/52 L 06/03/21 08:21 Pulse Ox 96 06/03/21 07:30 Weight - Most Recent: 190 lb 3.19 oz I&O - Last 24 Hours: Intake & Output 06/02/21 06/03/21 06/03/21 22:59 06:59 14:59 Intake Total 300 Output Total 1000 Balance -1000 300 Lab Results Last 24 Hours: Laboratory Results - last 24 hr 06/02/21 06/02/21 06/03/21 Range/Units 16:29 20:57 07:46 POC Glucose 316 H 372 H 190 H (74-106) mg/dL Med Orders - Current: Current Medications Acetaminophen (Acetaminophen 325 Mg Tab) 650 mg PO Q4H PRN PRN Reason: Pain (Mild 1-3)/fever Aspirin (Aspirin 81 Mg Tab.Ec) 81 mg PO DAILY [facility] Last Admin: 06/03/21 08:18 Dose: 81 mg Documented by: Dextrose (Glucose Gel 15 Gm In 37.5 Gm Tube) 15 gm PO ONETIME PRN PRN Reason: Hypoglycemia Dextrose/Water (50% Dextrose In Water 50 Ml Syringe) 50 ml IV ONETIME PRN PRN Reason: Hypoglycemia Enoxaparin Sodium (Enoxaparin 40 Mg/0.4 Ml Syringe) 40 mg SUBCUT DAILY [facility] Last Admin: 06/03/21 08:18 Dose: 40 mg Documented by: Insulin Human Lispro (Insulin Lispro 100 Unit/Ml 3 Ml Kwikpen) 0 unit SUBCUT QIDACANDBED [facility]; Protocol Last Admin: 06/03/21 08:07 Dose: 1 units Documented by: Lisinopril (Lisinopril 10 Mg Tab (Ptom)) 10 mg PO DAILY [facility] Lovastatin (Lovastatin 20 Mg Tab (Ptom)) 20 mg PO DAILY [facility] Ondansetron HCl (Ondansetron 4 Mg/2 Ml Sdv) 4 mg IV Q4H PRN PRN Reason: Nausea/Vomiting Metformin 1,000mg (Tab (Ptom)) 1 each PO BIDMEALS [facility] Polyethylene Glycol (Polyethylene Glycol 3350 Powder 17 Gm Packet) 17 gm PO DAILY PRN PRN Reason: Constipation Sodium Chloride (Sodium Chloride 0.9% 10 Ml Syringe) 10 ml FLUSH ASDIRECTED PRN PRN Reason: Keep Vein Open Discontinued Medications Allopurinol (Allopurinol 100 Mg Tab) 300 mg PO DAILY [facility] Last Admin: 06/03/21 08:17 Dose: 300 mg Documented by: Amlodipine Besylate (Amlodipine 5 Mg Tab) 10 mg PO DAILY [facility] Furosemide (Furosemide 20 Mg/2 Ml Vial) 20 mg IVPUSH NOW ONE Stop: 06/02/21 15:16 Last Admin: 06/02/21 16:37 Dose: 20 mg Documented by: Sodium Chloride (Normal Saline) 1,000 mls @ 999 mls/hr IV ASDIRECTED [facility] Last Admin: 06/02/21 08:27 Dose: 999 mls/hr Documented by: Lisinopril (Lisinopril 10 Mg Tab) 10 mg PO DAILY [facility] Last Admin: 06/03/21 08:21 Dose: 10 mg Documented by: Lovastatin (Lovastatin 20 Mg Tab) 20 mg PO DAILY [facility] Last Admin: 06/03/21 08:10 Dose: 20 mg Documented by: Metformin HCl (Metformin 500 Mg Tab) 1,000 mg PO BIDMEALS [facility] Last Admin: 06/03/21 08:10 Dose: 1,000 mg Documented by: Sodium Chloride (Sodium Chloride 0.9% 10 Ml Syringe) 10 ml FLUSH ASDIRECTED PRN PRN Reason: Keep Vein Open Last Admin: 06/02/21 07:52 Dose: 10 ml Documented by: - Exam Quality Assessment: Supplemental Oxygen, DVT Prophylaxis General: Alert, Oriented, Cooperative, Mild Distress Lungs: Clear to Auscultation, Normal Respiratory Effort Cardiovascular: Regular Rate, Regular Rhythm, No Murmurs GI/Abdominal Exam: Soft, Non-Tender, No Organomegaly, No Distention Back Exam: Normal Inspection, Full Range of Motion - Patient Data Lab Results Last 24 hrs: Laboratory Results - last 24 hr 06/02/21 06/02/21 06/03/21 Range/Units 16:29 20:57 07:46 POC Glucose 316 H 372 H 190 H (74-106) mg/dL Result Diagrams: 06/02/21 08:00 06/02/21 08:00 Sepsis Event Note - Evaluation Sepsis Screening Result: No Definite Risk - Focused Exam Vital Signs: Vital Signs Temp Pulse Resp BP BP Pulse Ox 06/03/21 08:21 122/52 L 06/03/21 07:30 96 06/03/21 06:56 98.7 F 89 16 121/54 L 95 06/03/21 02:01 99 F 89 18 115/46 L 93 L - Problem List Review Problem List Initiated/Reviewed/Updated: Yes - My Orders Last 24 Hours: My Active Orders 06/02/21 Lunch Regular Diet [DIET] 06/02/21 12:59 Resuscitation Status Routine 06/02/21 14:09 Acetaminophen [TylenoL] 650 mg PO Q4H PRN Dextrose 50% in Water 50 ml IV ONETIME PRN Dextrose [Glutose 15] 15 gm PO ONETIME PRN Enoxaparin [Lovenox] 40 mg SUBCUT DAILY Ondansetron [Zofran] 4 mg IV Q4H PRN Sodium Chloride 0.9% [Saline Flush] 10 ml FLUSH ASDIRECTED PRN polyethylene glycoL 3350 [MiraLAX] 17 gm PO DAILY PRN 06/02/21 14:09 Patient Status [ADT] Routine Ambulate [RC] QID Height and Weight [RC] DAILY Intake and Output [RC] QSHIFT Notify Provider Vital Signs [RC] ASDIRECTED Notify Provider [RC] PRN Oxygen Therapy [RC] PRN Up With Assistance [RC] ASDIRECTED Up to Chair [RC] QID Vital Signs [RC] Q4H PT Evaluation and Treatment [CONS] Routine Saline Lock Insert [OM.PC] Routine 06/02/21 17:00 Insulin Lispro [HumaLOG] See Protocol SUBCUT QIDACANDBED 06/03/21 09:00 Aspirin [Halfprin] 81 mg PO DAILY 06/03/21 11:30 GLUCOSE POC LAB TO COLLECT JPM [POC] QIDACANDBED 06/03/21 16:30 GLUCOSE POC LAB TO COLLECT JPM [POC] QIDACANDBED 06/03/21 17:00 Patient's Own Medication [Ptom] 1 each PO BIDMEALS 06/03/21 21:00 GLUCOSE POC LAB TO COLLECT JPM [POC] QIDACANDBED 06/04/21 07:30 GLUCOSE POC LAB TO COLLECT JPM [POC] QIDACANDBED 06/04/21 09:00 Lovastatin [Mevacor] 20 mg PO DAILY lisinopriL [Prinivil] 10 mg PO DAILY 06/04/21 11:30 GLUCOSE POC LAB TO COLLECT JPM [POC] QIDACANDBED 06/04/21 16:30 GLUCOSE POC LAB TO COLLECT JPM [POC] QIDACANDBED 06/04/21 21:00 GLUCOSE POC LAB TO COLLECT JPM [POC] QIDACANDBED 06/05/21 07:30 GLUCOSE POC LAB TO COLLECT JPM [POC] QIDACANDBED 06/05/21 11:30 GLUCOSE POC LAB TO COLLECT JPM [POC] QIDACANDBED 06/05/21 16:30 GLUCOSE POC LAB TO COLLECT JPM [POC] QIDACANDBED 06/05/21 21:00 GLUCOSE POC LAB TO COLLECT JPM [POC] QIDACANDBED 06/06/21 07:30 GLUCOSE POC LAB TO COLLECT JPM [POC] QIDACANDBED 06/06/21 11:30 GLUCOSE POC LAB TO COLLECT JPM [POC] QIDACANDBED 06/06/21 16:30 GLUCOSE POC LAB TO COLLECT JPM [POC] QIDACANDBED 06/06/21 21:00 GLUCOSE POC LAB TO COLLECT JPM [POC] QIDACANDBED 06/07/21 07:30 GLUCOSE POC LAB TO COLLECT JPM [POC] QIDACANDBED 06/07/21 11:30 GLUCOSE POC LAB TO COLLECT JPM [POC] QIDACANDBED - Plan Plan:: ASSESSMENT AND PLAN GENERALIZED WEAKNESS-secondary to lymphoma and lack of activity. Not safe for discharged home. 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 Complicated by bilateral pleural effusions BILATERAL PLEURAL EFFUSIONS-status post right thoracentesis today while in the emergency department yesterday -Drain left pleural effusion today via Pleurx drain PERIPHERAL EDEMA -Furosemide 20 mg IV today -Reassess in a.m. -Discontinue amlodipine TYPE 2 DIABETES MELLITUS -Hold glipizide -Continue Metformin -4 times daily glucometers -Low-dose sliding scale Humalog HYPERTENSION -Monitor blood pressure off of amlodipine MAINTENANCE ISSUES -DVT prophylaxis; Lovenox 40 mg subcu daily -GI prophylaxis; not indicated -Bishop catheter; not indicated -Nutrition; regular diet -Nicotine dependence; not required CODE STATUS-FULL CODE ADMISSION STATUS-this patient will be admitted to observation status, expect no more than a one night hospital stay for evaluation and management of problems as outlined above. DISPOSITION-anticipate discharge to home after the hospital stay. PRIMARY CARE PROVIDER-Dr. Vidal
[2021-06-03] MEDS ORDERED: Furosemide 40 MG/4 ML VIAL IVPUSH ONE (11:10)
[2021-06-03] MEDS: METFORMIN 1,000MG TAB (PTOM) PO SCH (17:28)
[2021-06-04] MEDS ORDERED: Furosemide 20 MG/2 ML VIAL IVPUSH ONE ×2 (08:15→18:00)
[2021-06-04] MEDS: METFORMIN 1,000MG TAB (PTOM) PO SCH ×2 (08:56→17:13)
[2021-06-04] MEDS: ALLOPURINOL 300MG TAB (PTOM) PO SCH (08:57)
[2021-06-04] MEDS: Lisinopril 10 MG Tab (PTOM) PO SCH (08:58)
[2021-06-04] MEDS: Lovastatin 20 MG Tab (PTOM) PO SCH (08:59)
[2021-06-04] MEDS: Enoxaparin 40 MG/0.4 ML Syringe SUBCUT SCH (09:03)
[2021-06-04] MEDS: Insulin Lispro 100 Unit/ML 3 ML KwikPen SUBCUT SCH ×4 (09:04→22:00)
[2021-06-04] MEDS: Aspirin 81 MG Tab.EC PO SCH (09:05)
--- NOTE | 2021-06-04 10:30 | PCM.PN ---
- General Info Date of Service: 06/04/21 Subjective Update: Ms. Centeno has shown modest improvement since admission. She has been walking very short distance several times a day and has been up in the chair. Remains fairly weak with any type of activity. Functional Status: Reports: Tolerating Diet, Ambulating, Urinating - Review of Systems General: Reports: Weakness, Fatigue. Denies: Fever, Chills Pulmonary: Reports: Shortness of Breath. Denies: Pleuritic Chest Pain, Cough, Sputum, Hemoptysis, Wheezing Cardiovascular: Reports: Dyspnea on Exertion, Edema. Denies: Chest Pain, Palpitations, Orthopnea, PND, Lightheadedness Gastrointestinal: Reports: No Symptoms Genitourinary: Reports: No Symptoms - Patient Data Vitals - Most Recent: Last Vital Signs Temp 97.4 F 06/04/21 07:46 Pulse 91 06/04/21 07:46 Resp 20 06/04/21 07:46 BP 111/71 06/04/21 08:58 Pulse Ox 90 L 06/04/21 07:46 Weight - Most Recent: 181 lb 3.52 oz I&O - Last 24 Hours: Intake & Output 06/03/21 06/04/21 06/04/21 22:59 06:59 14:59 Intake Total 400 120 480 Output Total 150 Balance 400 120 330 Lab Results Last 24 Hours: Laboratory Results - last 24 hr 06/03/21 06/03/21 06/03/21 Range/Units 11:35 16:31 21:00 Sodium (140-148) mmol/L Potassium (3.6-5.2) mmol/L Chloride (100-108) mmol/L Carbon Dioxide (21-32) mmol/L Anion Gap (5.0-14.0) mmol/L BUN (7-18) mg/dL Creatinine (0.6-1.0) mg/dL Est Cr Clr Drug Dosing mL/min Estimated GFR (MDRD) (>60) Glucose (74-106) mg/dL POC Glucose 203 H 258 H 264 H (74-106) mg/dL Calcium (8.5-10.1) mg/dL 06/04/21 06/04/21 Range/Units 06:28 07:39 Sodium 140 (140-148) mmol/L Potassium 4.0 (3.6-5.2) mmol/L Chloride 103 (100-108) mmol/L Carbon Dioxide 34 H (21-32) mmol/L Anion Gap 7.0 (5.0-14.0) mmol/L BUN 29 H (7-18) mg/dL Creatinine 0.7 (0.6-1.0) mg/dL Est Cr Clr Drug Dosing 48.34 mL/min Estimated GFR (MDRD) > 60 (>60) Glucose 182 H (74-106) mg/dL POC Glucose 172 H (74-106) mg/dL Calcium 8.4 L (8.5-10.1) mg/dL Med Orders - Current: Current Medications Acetaminophen (Acetaminophen 325 Mg Tab) 650 mg PO Q4H PRN PRN Reason: Pain (Mild 1-3)/fever Aspirin (Aspirin 81 Mg Tab.Ec) 81 mg PO DAILY [facility] Last Admin: 06/04/21 09:05 Dose: 81 mg Documented by: Dextrose (Glucose Gel 15 Gm In 37.5 Gm Tube) 15 gm PO ONETIME PRN PRN Reason: Hypoglycemia Dextrose/Water (50% Dextrose In Water 50 Ml Syringe) 50 ml IV ONETIME PRN PRN Reason: Hypoglycemia Enoxaparin Sodium (Enoxaparin 40 Mg/0.4 Ml Syringe) 40 mg SUBCUT DAILY [facility] Last Admin: 06/04/21 09:03 Dose: 40 mg Documented by: Furosemide (Furosemide 40 Mg/4 Ml Vial) 20 mg IVPUSH NOW ONE Stop: 06/04/21 18:01 Insulin Human Lispro (Insulin Lispro 100 Unit/Ml 3 Ml Kwikpen) 0 unit SUBCUT QIDACANDBED [facility]; Protocol Last Admin: 06/04/21 09:04 Dose: 1 units Documented by: Lisinopril (Lisinopril 10 Mg Tab (Ptom)) 10 mg PO DAILY [facility] Last Admin: 06/04/21 08:58 Dose: 10 mg Documented by: Lovastatin (Lovastatin 20 Mg Tab (Ptom)) 20 mg PO DAILY [facility] Last Admin: 06/04/21 08:59 Dose: 20 mg Documented by: Ondansetron HCl (Ondansetron 4 Mg/2 Ml Sdv) 4 mg IV Q4H PRN PRN Reason: Nausea/Vomiting Metformin 1,000mg (Tab (Ptom)) 1 each PO BIDMEALS [facility] Last Admin: 06/04/21 08:56 Dose: 1 each Documented by: Allopurinol 300mg (Tab (Ptom)) 1 each PO DAILY [facility] Last Admin: 06/04/21 08:57 Dose: 1 each Documented by: Polyethylene Glycol (Polyethylene Glycol 3350 Powder 17 Gm Packet) 17 gm PO DAILY PRN PRN Reason: Constipation Sodium Chloride (Sodium Chloride 0.9% 10 Ml Syringe) 10 ml FLUSH ASDIRECTED PRN PRN Reason: Keep Vein Open Discontinued Medications Allopurinol (Allopurinol 100 Mg Tab) 300 mg PO DAILY [facility] Last Admin: 06/03/21 08:17 Dose: 300 mg Documented by: Amlodipine Besylate (Amlodipine 5 Mg Tab) 10 mg PO DAILY [facility] Furosemide (Furosemide 20 Mg/2 Ml Vial) 20 mg IVPUSH NOW ONE Stop: 06/02/21 15:16 Last Admin: 06/02/21 16:37 Dose: 20 mg Documented by: Furosemide (Furosemide 40 Mg/4 Ml Vial) 20 mg IVPUSH NOW ONE Stop: 06/03/21 11:11 Last Admin: 06/03/21 11:24 Dose: 20 mg Documented by: Furosemide (Furosemide 20 Mg/2 Ml Vial) 20 mg IVPUSH NOW ONE Stop: 06/04/21 08:16 Sodium Chloride (Normal Saline) 1,000 mls @ 999 mls/hr IV ASDIRECTED [facility] Last Admin: 06/02/21 08:27 Dose: 999 mls/hr Documented by: Lisinopril (Lisinopril 10 Mg Tab) 10 mg PO DAILY [facility] Last Admin: 06/03/21 08:21 Dose: 10 mg Documented by: Lovastatin (Lovastatin 20 Mg Tab) 20 mg PO DAILY [facility] Last Admin: 06/03/21 08:10 Dose: 20 mg Documented by: Metformin HCl (Metformin 500 Mg Tab) 1,000 mg PO BIDMEALS [facility] Last Admin: 06/03/21 08:10 Dose: 1,000 mg Documented by: Sodium Chloride (Sodium Chloride 0.9% 10 Ml Syringe) 10 ml FLUSH ASDIRECTED PRN PRN Reason: Keep Vein Open Last Admin: 06/02/21 07:52 Dose: 10 ml Documented by: - Exam Quality Assessment: Supplemental Oxygen, DVT Prophylaxis General: Alert, Oriented, Cooperative, Mild Distress Lungs: Clear to Auscultation, Normal Respiratory Effort, Decreased Breath Sounds Cardiovascular: Regular Rate, Regular Rhythm, No Murmurs GI/Abdominal Exam: Soft, Non-Tender, No Organomegaly, No Distention Extremities: Non-Tender, Pedal Edema - Patient Data Lab Results Last 24 hrs: Laboratory Results - last 24 hr 06/03/21 06/03/21 06/03/21 Range/Units 11:35 16:31 21:00 Sodium (140-148) mmol/L Potassium (3.6-5.2) mmol/L Chloride (100-108) mmol/L Carbon Dioxide (21-32) mmol/L Anion Gap (5.0-14.0) mmol/L BUN (7-18) mg/dL Creatinine (0.6-1.0) mg/dL Est Cr Clr Drug Dosing mL/min Estimated GFR (MDRD) (>60) Glucose (74-106) mg/dL POC Glucose 203 H 258 H 264 H (74-106) mg/dL Calcium (8.5-10.1) mg/dL 06/04/21 06/04/21 Range/Units 06:28 07:39 Sodium 140 (140-148) mmol/L Potassium 4.0 (3.6-5.2) mmol/L Chloride 103 (100-108) mmol/L Carbon Dioxide 34 H (21-32) mmol/L Anion Gap 7.0 (5.0-14.0) mmol/L BUN 29 H (7-18) mg/dL Creatinine 0.7 (0.6-1.0) mg/dL Est Cr Clr Drug Dosing 48.34 mL/min Estimated GFR (MDRD) > 60 (>60) Glucose 182 H (74-106) mg/dL POC Glucose 172 H (74-106) mg/dL Calcium 8.4 L (8.5-10.1) mg/dL Result Diagrams: 06/02/21 08:00 06/04/21 06:28 Sepsis Event Note - Evaluation Sepsis Screening Result: No Definite Risk - Focused Exam Vital Signs: Vital Signs Temp Pulse Resp BP BP Pulse Ox 06/04/21 08:58 111/71 06/04/21 07:46 97.4 F 91 20 111/71 90 L 06/04/21 03:07 97.0 F 87 16 120/49 L 95 06/03/21 22:39 18 - Problem List Review Problem List Initiated/Reviewed/Updated: Yes - My Orders Last 24 Hours: My Active Orders 06/03/21 17:00 Patient's Own Medication [Ptom] 1 each PO BIDMEALS 06/04/21 09:00 Lovastatin [Mevacor] 20 mg PO DAILY Patient's Own Medication [Ptom] 1 each PO DAILY lisinopriL [Prinivil] 10 mg PO DAILY 06/04/21 11:30 GLUCOSE POC LAB TO COLLECT JPM [POC] QIDACANDBED 06/04/21 16:30 GLUCOSE POC LAB TO COLLECT JPM [POC] QIDACANDBED 06/04/21 18:00 Furosemide [Lasix] 20 mg IVPUSH NOW ONE 06/04/21 21:00 GLUCOSE POC LAB TO COLLECT JPM [POC] QIDACANDBED 06/05/21 05:00 BASIC METABOLIC PANEL,BMP [CHEM] Timed 06/05/21 07:30 GLUCOSE POC LAB TO COLLECT JPM [POC] QIDACANDBED 06/05/21 11:30 GLUCOSE POC LAB TO COLLECT JPM [POC] QIDACANDBED 06/05/21 16:30 GLUCOSE POC LAB TO COLLECT JPM [POC] QIDACANDBED 06/05/21 21:00 GLUCOSE POC LAB TO COLLECT JPM [POC] QIDACANDBED 06/06/21 07:30 GLUCOSE POC LAB TO COLLECT JPM [POC] QIDACANDBED 06/06/21 11:30 GLUCOSE POC LAB TO COLLECT JPM [POC] QIDACANDBED 06/06/21 16:30 GLUCOSE POC LAB TO COLLECT JPM [POC] QIDACANDBED 06/06/21 21:00 GLUCOSE POC LAB TO COLLECT JPM [POC] QIDACANDBED 06/07/21 07:30 GLUCOSE POC LAB TO COLLECT JPM [POC] QIDACANDBED 06/07/21 11:30 GLUCOSE POC LAB TO COLLECT JPM [POC] QIDACANDBED - Plan Plan:: ASSESSMENT AND PLAN GENERALIZED WEAKNESS-secondary to lymphoma and lack of activity. Not safe for discharged home. 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 Complicated by bilateral pleural effusions BILATERAL PLEURAL EFFUSIONS-status post right thoracentesis today while in the emergency department yesterday -Drain left pleural effusion today via Pleurx drain PERIPHERAL EDEMA -Furosemide 20 mg IV twice today -Reassess in a.m. -Discontinue amlodipine TYPE 2 DIABETES MELLITUS -Hold glipizide -Continue Metformin -4 times daily glucometers -Low-dose sliding scale Humalog HYPERTENSION -Monitor blood pressure off of amlodipine MAINTENANCE ISSUES -DVT prophylaxis; Lovenox 40 mg subcu daily -GI prophylaxis; not indicated -Bishop catheter; not indicated -Nutrition; regular diet -Nicotine dependence; not required CODE STATUS-FULL CODE ADMISSION STATUS-this patient will be admitted to observation status, expect no more than a one night hospital stay for evaluation and management of problems as outlined above. DISPOSITION-anticipate discharge to home after the hospital stay. PRIMARY CARE PROVIDER-Dr. Vidal
[2021-06-04] MEDS ORDERED: Melatonin 3 MG Tab PO PRN (23:40)
[2021-06-05] MEDS: Insulin Lispro 100 Unit/ML 3 ML KwikPen SUBCUT SCH ×2 (07:57→12:10)
[2021-06-05] MEDS: METFORMIN 1,000MG TAB (PTOM) PO SCH (07:58)
[2021-06-05] MEDS: Aspirin 81 MG Tab.EC PO SCH (10:03)
[2021-06-05] MEDS: Lisinopril 10 MG Tab (PTOM) PO SCH (10:04)
[2021-06-05] MEDS: Lovastatin 20 MG Tab (PTOM) PO SCH (10:04)
[2021-06-05] MEDS: ALLOPURINOL 300MG TAB (PTOM) PO SCH (10:07)
--- NOTE | 2021-06-05 11:31 | PCM.DCSUM1 ---
Discharge Summary - Hospital Course Brief History: Ms. Centeno is a 76-year-old woman who was admitted through the emergency department to observation status because of profound weakness secondary to recent chemotherapy and underlying lymphoma. - Discharge Data Discharge Date: 06/05/21 Discharge Disposition: Home, W Home Health Agency 06 Condition: Fair - Referral to Home Health Date of Face to Face Encounter: 06/05/21 Reason for Homebound Status: Weakness, lymphoma Primary Care Physician: Timbo Vidal MD Skilled Need: Nursing, Home health aide, PT/OT - Patient Summary/Data Consults: Consultations 06/02/21 14:09 PT Evaluation and Treatment [CONS] Routine Please Evaluate and Treat. PT Reason for Consult: Weakness, lymphoma This query below is only for informational purposes and is not editable. Hospital Course: Ms. Centeno is a 76-year-old woman who was admitted to observation status through the emergency department because of profound weakness. She has a diagnosis of widespread lymphoma and did receive her first dose of chemotherapy last May 28. Lymphoma has been complicated by bilateral pleural effusions, there is a Pleurx drain on the left. She has been somewhat more short of breath but has been very weak with frequent falls and unable to get up off of the floor even with assistance from her . Laboratory tests have been obtained in the emergency department and are essentially unremarkable. She did have increased effusion on the right and did undergo thoracentesis while in the emergency department. She is due to have her left effusion drained from her Pleurx drain today. She is not safe for discharged home so she was admitted to observation status. After admission she did have left pleural effusion drained via her Pleurx drain. She was seen daily by physical therapy and by the time of discharge was ambulating in the hallways with standby assistance. She was also able to transfer with standby assistance. She will receive ongoing physical therapy after discharged home. Laboratory tests were obtained on the day of discharge and did show a new development of pancytopenia including absolute neutropenia. Her total white count was 300 with an absolute neutrophil count of approximately 150. Platelets were also found to be low as well as a low hemoglobin level. These findings were reviewed with oncology on-call at [facility]. Dr. Katz recommended that the patient monitor temperatures closely at home and return immediately to the emergency department if she had a temperature of greater than 100.5 degrees. He also recommended a one-time dose of Neupogen 300 mcg today. Follow-up appointment will be scheduled with oncology next week and she will be going in 2 days, Monday, June 07 for a follow-up CBC with differential. Activity will be as tolerated and she will be on a neutropenic diet with no uncooked fresh fruits or vegetables. - Patient Instructions Diet, Other: Neutropenic diet, no uncooked fresh fruits or vegetables Activity: As Tolerated Other/Special Instructions: Please schedule follow-up appointment with oncology provider within 1 week. Please schedule CBC with differential for Monday, June 07. Monitor temperatures at home and return to the emergency department immediately for any temperature greater than 100.5 degrees. Continue home care after discharge including home physical therapy and Occupational Therapy - Discharge Plan *PRESCRIPTION DRUG MONITORING PROGRAM REVIEWED*: Not Applicable *COPY OF PRESCRIPTION DRUG MONITORING REPORT IN PATIENT MARTHA: Not Applicable Home Medications: Home Meds Lovastatin 20 mg PO DAILY 04/21/21 [History] glipiZIDE [Glucotrol XL] 10 mg PO BID 04/21/21 [History] lisinopriL [Lisinopril] 10 mg PO DAILY 04/21/21 [History] metFORMIN [Glucophage] 1,000 mg PO BID 04/21/21 [History] Aspirin [Halfprin] 81 mg PO DAILY 04/28/21 [History] Multivitamin [Multi-Vitamin Daily] 1 each PO DAILY 04/28/21 [History] allopurinoL [Zyloprim] 300 mg PO DAILY #30 tablet 05/26/21 [Rx] Benzonatate 100 mg PO Q6HR PRN 06/02/21 [History] Referrals: Conchita Rincon PA-C [Ordering Only Provider] - 06/09/21 11:45 am (Please arrive 15 minutes early for your appointment.) - Discharge Summary/Plan Comment DC Time >30 min.: No Total # of Minutes for Discharge Time: 25 - Patient Data Vitals - Most Recent: Last Vital Signs Temp 97 F 06/05/21 10:08 Pulse 95 06/05/21 10:08 Resp 18 06/05/21 10:08 BP 109/77 06/05/21 10:08 Pulse Ox 92 L 06/05/21 10:08 Weight - Most Recent: 181 lb 3.52 oz I&O - Last 24 hours: Intake & Output 06/04/21 06/05/21 06/05/21 22:59 06:59 14:59 Intake Total 260 Output Total 150 Balance -150 260 Lab Results - Last 24 hrs: Laboratory Results - last 24 hr 06/04/21 06/04/21 06/04/21 Range/Units 11:37 16:39 21:12 WBC (4.5-11.0) K/uL RBC (3.30-5.50) M/uL Hgb (12.0-15.0) g/dL Hct (36.0-48.0) % MCV (80-98) fL MCH (27-31) pg MCHC (32-36) % Plt Count (150-400) K/uL Neut % (Auto) (36-66) % Lymph % (Auto) (24-44) % [place] % (Auto) (2-6) % Eos % (Auto) (2-4) % Baso % (Auto) (0-1) % Sodium (140-148) mmol/L Potassium (3.6-5.2) mmol/L Chloride (100-108) mmol/L Carbon Dioxide (21-32) mmol/L Anion Gap (5.0-14.0) mmol/L BUN (7-18) mg/dL Creatinine (0.6-1.0) mg/dL Est Cr Clr Drug Dosing mL/min Estimated GFR (MDRD) (>60) Glucose (74-106) mg/dL POC Glucose 268 H 262 H 244 H (74-106) mg/dL Calcium (8.5-10.1) mg/dL 06/05/21 06/05/21 06/05/21 Range/Units 05:30 05:30 07:21 WBC 0.3 L* (4.5-11.0) K/uL RBC 3.24 L (3.30-5.50) M/uL Hgb 8.1 L D (12.0-15.0) g/dL Hct 26.0 L (36.0-48.0) % MCV 80 (80-98) fL MCH 25 L (27-31) pg MCHC 31 L (32-36) % Plt Count 59 L (150-400) K/uL Neut % (Auto) 53.3 (36-66) % Lymph % (Auto) 30.0 (24-44) % [place] % (Auto) 6.7 H (2-6) % Eos % (Auto) 10.0 H (2-4) % Baso % (Auto) 0.0 (0-1) % Sodium 139 L (140-148) mmol/L Potassium 3.8 (3.6-5.2) mmol/L Chloride 103 (100-108) mmol/L Carbon Dioxide 35 H (21-32) mmol/L Anion Gap 4.8 L (5.0-14.0) mmol/L BUN 29 H (7-18) mg/dL Creatinine 0.8 (0.6-1.0) mg/dL Est Cr Clr Drug Dosing 42.30 mL/min Estimated GFR (MDRD) > 60 (>60) Glucose 190 H (74-106) mg/dL POC Glucose 199 H (74-106) mg/dL Calcium 8.2 L (8.5-10.1) mg/dL Med Orders - Current: Current Medications Acetaminophen (Acetaminophen 325 Mg Tab) 650 mg PO Q4H PRN PRN Reason: Pain (Mild 1-3)/fever Aspirin (Aspirin 81 Mg Tab.Ec) 81 mg PO DAILY [facility] Last Admin: 06/05/21 10:03 Dose: 81 mg Documented by: Dextrose (Glucose Gel 15 Gm In 37.5 Gm Tube) 15 gm PO ONETIME PRN PRN Reason: Hypoglycemia Dextrose/Water (50% Dextrose In Water 50 Ml Syringe) 50 ml IV ONETIME PRN PRN Reason: Hypoglycemia Insulin Human Lispro (Insulin Lispro 100 Unit/Ml 3 Ml Kwikpen) 0 unit SUBCUT QIDACANDBED [facility]; Protocol Last Admin: 06/05/21 07:57 Dose: 1 units Documented by: Lisinopril (Lisinopril 10 Mg Tab (Ptom)) 10 mg PO DAILY [facility] Last Admin: 06/05/21 10:04 Dose: 10 mg Documented by: Lovastatin (Lovastatin 20 Mg Tab (Ptom)) 20 mg PO DAILY [facility] Last Admin: 06/05/21 10:04 Dose: 20 mg Documented by: Melatonin (Melatonin 3 Mg Tab) 9 mg PO BEDTIME PRN PRN Reason: Insomnia Ondansetron HCl (Ondansetron 4 Mg/2 Ml Sdv) 4 mg IV Q4H PRN PRN Reason: Nausea/Vomiting Metformin 1,000mg (Tab (Ptom)) 1 each PO BIDMEALS [facility] Last Admin: 06/05/21 07:58 Dose: 1 each Documented by: Allopurinol 300mg (Tab (Ptom)) 1 each PO DAILY [facility] Last Admin: 06/05/21 10:07 Dose: 1 each Documented by: Polyethylene Glycol (Polyethylene Glycol 3350 Powder 17 Gm Packet) 17 gm PO DAILY PRN PRN Reason: Constipation Sodium Chloride (Sodium Chloride 0.9% 10 Ml Syringe) 10 ml FLUSH ASDIRECTED PRN PRN Reason: Keep Vein Open Discontinued Medications Allopurinol (Allopurinol 100 Mg Tab) 300 mg PO DAILY [facility] Last Admin: 06/03/21 08:17 Dose: 300 mg Documented by: Amlodipine Besylate (Amlodipine 5 Mg Tab) 10 mg PO DAILY [facility] Enoxaparin Sodium (Enoxaparin 40 Mg/0.4 Ml Syringe) 40 mg SUBCUT DAILY [facility] Last Admin: 06/04/21 09:03 Dose: 40 mg Documented by: Furosemide (Furosemide 20 Mg/2 Ml Vial) 20 mg IVPUSH NOW ONE Stop: 06/02/21 15:16 Last Admin: 06/02/21 16:37 Dose: 20 mg Documented by: Furosemide (Furosemide 40 Mg/4 Ml Vial) 20 mg IVPUSH NOW ONE Stop: 06/03/21 11:11 Last Admin: 06/03/21 11:24 Dose: 20 mg Documented by: Furosemide (Furosemide 20 Mg/2 Ml Vial) 20 mg IVPUSH NOW ONE Stop: 06/04/21 08:16 Last Admin: 06/04/21 11:16 Dose: 20 mg Documented by: Furosemide (Furosemide 20 Mg/2 Ml Vial) 20 mg IVPUSH NOW ONE Stop: 06/04/21 18:01 Last Admin: 06/04/21 17:16 Dose: 20 mg Documented by: Sodium Chloride (Normal Saline) 1,000 mls @ 999 mls/hr IV ASDIRECTED [facility] Last Admin: 06/02/21 08:27 Dose: 999 mls/hr Documented by: Lisinopril (Lisinopril 10 Mg Tab) 10 mg PO DAILY [facility] Last Admin: 06/03/21 08:21 Dose: 10 mg Documented by: Lovastatin (Lovastatin 20 Mg Tab) 20 mg PO DAILY [facility] Last Admin: 06/03/21 08:10 Dose: 20 mg Documented by: Metformin HCl (Metformin 500 Mg Tab) 1,000 mg PO BIDMEALS [facility] Last Admin: 06/03/21 08:10 Dose: 1,000 mg Documented by: Sodium Chloride (Sodium Chloride 0.9% 10 Ml Syringe) 10 ml FLUSH ASDIRECTED PRN PRN Reason: Keep Vein Open Last Admin: 06/02/21 07:52 Dose: 10 ml Documented by: Tbo-Filgrastim (Tbo-Filgrastim 300 Mcg/0.5 Ml Syringe) 300 mcg SUBCUT ONETIME ONE Stop: 06/05/21 11:01 - Exam General: Reports: Alert, Oriented, Cooperative, Mild Distress Lungs: Reports: Clear to Auscultation, Normal Respiratory Effort, Decreased Breath Sounds Cardiovascular: Reports: Regular Rate, Regular Rhythm, No Murmurs GI/Abdominal Exam: Soft, Non-Tender, No Organomegaly, No Distention Extremities: Non-Tender, Pedal Edema Discharge Operative/Procedures - Procedures Performed Thoracentesis Indication: pleural effusion
== END 2021-06-05 13:00 | disposition home health service (06) ==
LOC: JP.ED 07:22 → JP.MS 12:58
PROVIDERS: ADMIT Hospitalist; ATTEND Hospitalist
DX: R53.1 Weakness (principal); J90 Pleural effusion, not elsewhere classified; C83.30 Diffuse large B-cell lymphoma, unspecified site; E78.00 Pure hypercholesterolemia, unspecified; I10 Essential (primary) hypertension; E11.9 Type 2 diabetes mellitus without complications; E66.9 Obesity, unspecified; Z01.812 Encounter for preprocedural laboratory examination; Z79.899 Other long term (current) drug therapy; Z98.890 Other specified postprocedural states; Z88.5 Allergy status to narcotic agent; Z79.82 Long term (current) use of aspirin; Z20.822 Contact with and (suspected) exposure to COVID-19
CPT/HCPCS: 32555; 36415; 71045; 71045-26; 80048; 80053; 81001; 82009; 82947; 83605; 84550; 85025; 86140; 96372; 96374; 96376; 97110-GP; 97116-GP; 97140-GP; 97162-GP; 97530-GP; 99285-25; A9270-GY; G0378; J1447; J1650; J1815; J1940; J7030; U0002

== ENCOUNTER 2021-06-12 13:53 | Emergency (ER) | payer MEDICARE ==
--- NOTE | 2021-06-12 14:56 | EDM.PDOC ---
ED HPI GENERAL MEDICAL PROBLEM - General Chief Complaint: General Stated Complaint: MEDICAL [facility] Time Seen by Provider: 06/12/21 14:32 Source of Information: Reports: Patient, Family, Old Records, RN Notes Reviewed History Limitations: Reports: No Limitations - History of Present Illness INITIAL COMMENTS - FREE TEXT/NARRATIVE: 76-year-old female presents emergency department day complaint of altered mental status and increasing weakness. She has known history of leukemia currently undergoing chemotherapy last infusion treatment was 3 months ago was recently admitted the hospital for increasing weakness - Related Data Allergies Allergy/AdvReac Type Severity Reaction Status Date / Time codeine AdvReac Vomiting Verified 06/12/21 14:07 Home Meds: Home Meds Lovastatin 20 mg PO DAILY 04/21/21 [History] glipiZIDE [Glucotrol XL] 10 mg PO BID 04/21/21 [History] lisinopriL [Lisinopril] 10 mg PO DAILY 04/21/21 [History] metFORMIN [Glucophage] 1,000 mg PO BID 04/21/21 [History] Aspirin [Halfprin] 81 mg PO DAILY 04/28/21 [History] Multivitamin [Multi-Vitamin Daily] 1 each PO DAILY 04/28/21 [History] allopurinoL [Zyloprim] 300 mg PO DAILY #30 tablet 05/26/21 [Rx] Benzonatate 100 mg PO Q6HR PRN 06/02/21 [History] Furosemide [Lasix] 20 mg PO DAILY #30 tab 06/05/21 [Rx] Past Medical History HEENT History: Reports: Impaired Vision Cardiovascular History: Reports: High Cholesterol, Hypertension Respiratory History: Reports: Asthma, Other (See Below) Other Respiratory History: pleural effusion Gastrointestinal History: Reports: Hemorrhoids Genitourinary History: Reports: None [employer] History: Reports: Musculoskeletal History: Reports: Fracture, Other (See Below) Other Musculoskeletal History: left wrist fracture Endocrine/Metabolic History: Reports: Diabetes, Type II, Obesity/BMI 30+ Oncologic (Cancer) History: Reports: Lymphoma, Other (See Below) Other Oncologic History: Large diffuse B-cell lymphoma Stage IV, (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) first Chemotherapy 05/28/2021 - Infectious Disease History Infectious Disease History: Reports: Chicken Pox, Influenza, Measles, Mumps, Pertussis (Whooping Cough) - Past Surgical History Head Surgeries/Procedures: Reports: None HEENT Surgical History: Reports: Cataract Surgery Cardiovascular Surgical History: Reports: None Respiratory Surgical History: Reports: Thoracentesis, Other (See Below) Other Respiratory Surgeries/Procedures: L PleurX drain GI Surgical History: Reports: None Endocrine Surgical History: Reports: None Musculoskeletal Surgical History: Reports: None Oncologic Surgical History: Reports: Other (See Below) Other Oncologic Surgeries/Procedures: lymph node biopsy Dermatological Surgical History: Reports: None Social & Family History - Family History Oncologic: Reports: Other (See Below) Other Oncologic Family History: mother-stomach cancer - Tobacco Use Tobacco Use Status *Q: Never Tobacco User - Caffeine Use Caffeine Use: Reports: Coffee ED ROS GENERAL - Review of Systems Review Of Systems: Unable To Obtain Reason Not Obtained: AMS ED EXAM, GENERAL - Physical Exam Exam: See Below Exam Limited By: Altered Mental Status Eye Exam: Bilateral Eye: PERRL Respiratory/Chest: No Respiratory Distress, Lungs Clear, Normal Breath Sounds, No Accessory Muscle Use, Chest Non-Tender Cardiovascular: Regular Rate, Rhythm, No Murmur GI/Abdominal: Soft, Non-Tender Course - Vital Signs Last Recorded V/S: Last Vital Signs Temp 97.5 F 06/12/21 14:11 Pulse 104 H 06/12/21 14:11 Resp 16 06/12/21 14:11 BP 140/65 06/12/21 14:11 Pulse Ox 95 06/12/21 14:11 - Orders/Labs/Meds Orders: Active Orders 24 hr Category Date Time Status Chest 1V Frontal [CR] Urgent Exams 06/12/21 14:54 Taken GLUCOSE POC LAB TO COLLECT JPM [POC] Stat Lab 06/12/21 15:50 Ordered Labs: Laboratory Tests 06/12/21 06/12/21 06/12/21 Range/Units 15:14 15:14 15:14 WBC 9.9 (4.5-11.0) K/uL RBC 4.09 (3.30-5.50) M/uL Hgb 10.2 L D (12.0-15.0) g/dL Hct 33.1 L (36.0-48.0) % MCV 81 (80-98) fL MCH 25 L (27-31) pg MCHC 31 L (32-36) % Plt Count 301 (150-400) K/uL Add Manual Diff Yes Neutrophils % (Manual) 59 (36-66) % Band Neutrophils % 13 H (5-11) % Lymphocytes % (Manual) 10 L (24-44) % Monocytes % (Manual) 18 H (2-6) % Atypical Lymphocytes Moderate Polychromasia Few Hypochromasia Few Sodium 141 (140-148) mmol/L Potassium 3.9 (3.6-5.2) mmol/L Chloride 104 (100-108) mmol/L Carbon Dioxide 31 (21-32) mmol/L Anion Gap 6.3 (5.0-14.0) mmol/L BUN 14 D (7-18) mg/dL Creatinine 0.8 (0.6-1.0) mg/dL Est Cr Clr Drug Dosing 52.99 mL/min Estimated GFR (MDRD) > 60 (>60) Glucose 34 L* (74-106) mg/dL POC Glucose (74-106) mg/dL Lactic Acid (0.4-2.0) mmol/L Calcium 8.5 (8.5-10.1) mg/dL Total Bilirubin 0.2 (0.2-1.0) mg/dL AST 24 D (15-37) U/L ALT 30 (12-78) U/L Alkaline Phosphatase 129 H (46-116) U/L Ammonia < 17 (11-32) umol/L Troponin I < 0.017 (0.000-0.056) ng/mL Total Protein 5.5 L (6.4-8.2) g/dL Albumin 1.9 L (3.4-5.0) g/dL Globulin 3.6 H (2.3-3.5) g/dL Albumin/Globulin Ratio 0.5 L (1.2-2.2) Urine Color (YELLOW) Urine Appearance (CLEAR) Urine pH (5.0-8.0) Ur Specific Krypton (1.008-1.030) Urine Protein (NEGATIVE) mg/dL Urine Glucose (UA) (NEGATIVE) mg/dL Urine Ketones (NEGATIVE) mg/dL Urine Occult Blood (NEGATIVE) Urine Nitrite (NEGATIVE) Urine Bilirubin (NEGATIVE) Urine Urobilinogen (0.2-1.0) EU/dL Ur Leukocyte Esterase (NEGATIVE) Urine RBC (0-5) Urine WBC (0-5) Ur Epithelial Cells Amorphous Sediment Urine Bacteria Urine Mucus 0906/12/21 06/12/21 Range/Units 15:14 15:22 16:00 WBC (4.5-11.0) K/uL RBC (3.30-5.50) M/uL Hgb (12.0-15.0) g/dL Hct (36.0-48.0) % MCV (80-98) fL MCH (27-31) pg MCHC (32-36) % Plt Count (150-400) K/uL Add Manual Diff Neutrophils % (Manual) (36-66) % Band Neutrophils % (5-11) % Lymphocytes % (Manual) (24-44) % Monocytes % (Manual) (2-6) % Atypical Lymphocytes Polychromasia Hypochromasia Sodium (140-148) mmol/L Potassium (3.6-5.2) mmol/L Chloride (100-108) mmol/L Carbon Dioxide (21-32) mmol/L Anion Gap (5.0-14.0) mmol/L BUN (7-18) mg/dL Creatinine (0.6-1.0) mg/dL Est Cr Clr Drug Dosing mL/min Estimated GFR (MDRD) (>60) Glucose (74-106) mg/dL POC Glucose 26 L* (74-106) mg/dL Lactic Acid 2.4 H (0.4-2.0) mmol/L Calcium (8.5-10.1) mg/dL Total Bilirubin (0.2-1.0) mg/dL AST (15-37) U/L ALT (12-78) U/L Alkaline Phosphatase (46-116) U/L Ammonia (11-32) umol/L Troponin I (0.000-0.056) ng/mL Total Protein (6.4-8.2) g/dL Albumin (3.4-5.0) g/dL Globulin (2.3-3.5) g/dL Albumin/Globulin Ratio (1.2-2.2) Urine Color Yellow (YELLOW) Urine Appearance Clear (CLEAR) Urine pH 7.5 (5.0-8.0) Ur Specific Krypton 1.015 (1.008-1.030) Urine Protein Trace H (NEGATIVE) mg/dL Urine Glucose (UA) Negative (NEGATIVE) mg/dL Urine Ketones Negative (NEGATIVE) mg/dL Urine Occult Blood Negative (NEGATIVE) Urine Nitrite Negative (NEGATIVE) Urine Bilirubin Negative (NEGATIVE) Urine Urobilinogen 4.0 H (0.2-1.0) EU/dL Ur Leukocyte Esterase Negative (NEGATIVE) Urine RBC 0-5 (0-5) Urine WBC 0-5 (0-5) Ur Epithelial Cells Few Amorphous Sediment Occasional Urine Bacteria Occasional Urine Mucus Few 06/12/ Range/Units 16:21 WBC (4.5-11.0) K/uL RBC (3.30-5.50) M/uL Hgb (12.0-15.0) g/dL Hct (36.0-48.0) % MCV (80-98) fL MCH (27-31) pg MCHC (32-36) % Plt Count (150-400) K/uL Add Manual Diff Neutrophils % (Manual) (36-66) % Band Neutrophils % (5-11) % Lymphocytes % (Manual) (24-44) % Monocytes % (Manual) (2-6) % Atypical Lymphocytes Polychromasia Hypochromasia Sodium (140-148) mmol/L Potassium (3.6-5.2) mmol/L Chloride (100-108) mmol/L Carbon Dioxide (21-32) mmol/L Anion Gap (5.0-14.0) mmol/L BUN (7-18) mg/dL Creatinine (0.6-1.0) mg/dL Est Cr Clr Drug Dosing mL/min Estimated GFR (MDRD) (>60) Glucose (74-106) mg/dL POC Glucose 135 H (74-106) mg/dL Lactic Acid (0.4-2.0) mmol/L Calcium (8.5-10.1) mg/dL Total Bilirubin (0.2-1.0) mg/dL AST (15-37) U/L ALT (12-78) U/L Alkaline Phosphatase (46-116) U/L Ammonia (11-32) umol/L Troponin I (0.000-0.056) ng/mL Total Protein (6.4-8.2) g/dL Albumin (3.4-5.0) g/dL Globulin (2.3-3.5) g/dL Albumin/Globulin Ratio (1.2-2.2) Urine Color (YELLOW) Urine Appearance (CLEAR) Urine pH (5.0-8.0) Ur Specific Krypton (1.008-1.030) Urine Protein (NEGATIVE) mg/dL Urine Glucose (UA) (NEGATIVE) mg/dL Urine Ketones (NEGATIVE) mg/dL Urine Occult Blood (NEGATIVE) Urine Nitrite (NEGATIVE) Urine Bilirubin (NEGATIVE) Urine Urobilinogen (0.2-1.0) EU/dL Ur Leukocyte Esterase (NEGATIVE) Urine RBC (0-5) Urine WBC (0-5) Ur Epithelial Cells Amorphous Sediment Urine Bacteria Urine Mucus Meds: Medications Discontinued Medications Generic Name Dose Route Start Last Admin Trade Name Freq PRN Reason Stop Dose Admin Dextrose/Water 50 ml 06/12/21 15:50 06/12/21 16:01 50% Dextrose In Water 50 Ml Syringe IVPUSH 06/12/21 15:51 50 ml ONETIME ONE Administration Departure - Departure Time of Disposition: 17:14 Disposition: Home, Self-Care 01 Condition: Poor Clinical Impression: Hypoglycemia - Discharge Information Instructions: Hypoglycemia, Preventing Hypoglycemia Referrals: PCP,Unknown [Primary Care Provider] - Forms: ED Department Discharge Additional Instructions: Continue to check your blood sugars 3 times a day or whenever you feel weak and symptomatic, please keep your follow-up appointments with oncology and your primary care Sepsis Event Note (ED) - Focused Exam Vital Signs: Vital Signs Temp Pulse Resp BP Pulse Ox 06/12/21 14:11 97.5 F 104 H 16 140/65 95 06/12/21 14:05 97.5 F 104 H 16 140/65 95 - My Orders Last 24 Hours: My Active Orders 06/12/21 14:54 Chest 1V Frontal [CR] Urgent 06/12/21 15:50 GLUCOSE POC LAB TO COLLECT JPM [POC] Stat - Assessment/Plan Last 24 Hours: My Active Orders 06/12/21 14:54 Chest 1V Frontal [CR] Urgent 06/12/21 15:50 GLUCOSE POC LAB TO COLLECT JPM [POC] Stat Plan: Assessment Acuity = acute Site and laterality = hypoglycemic event Etiology = unknown high related to max doses of Metformin and recent chemotherapy. Hemoglobin A1c is 12.4 Manifestations = altered mental status now resolved Location of injury = Home Lab values = CBC reveals a hemoglobin low at 10.2 consistent normochromic anemia glucose initially 26 after treatment 135 lactic acid 2.4 consistent lactic acidosis troponin was negative urinalysis negative chest x-ray shows no acute process, CT scan also no acute process Plan Counseled them on measurement of blood sugar and checking when symptomatic she is to follow-up with her primary care to review her blood sugar medications and her glucose monitoring levels. This note was dictated using [employer] voice recognition software please call with any questions on syntax or grammar.
[2021-06-12] MEDS ORDERED: 50% Dextrose in Water 50 ML Syringe IVPUSH ONE (15:50)
--- NOTE | 2021-06-12 16:05 | CRLCT ---
For Patients: As a result of the Cures Act, medical imaging exams and procedure reports are released immediately into your electronic medical record. You may view this report before your referring provider. If you have questions, please contact your health care provider. Indication: Acute mental status change Technique: Noncontrast head CT Comparison: No comparison Findings: Axial noncontrast images through the brain parenchyma demonstrates right posterior parietal/occipital old infarct. No acute intracranial hemorrhage or mass no midline shift. Periventricular hypo lucencies may represent small vessel ischemic change. No acute osseous abnormalities. Impression: 1. No acute intracranial hemorrhage or mass. 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 Results called to Dr. Bravo on 06/12/21 at 4pm. Please note that all CT scans at this facility use dose modulation, iterative reconstruction, and/or weight-based dosing when appropriate to reduce radiation dose to as low as reasonably achievable. Dictated by Nicolasa Bourne MD @ 06/12/2021 4:04:00 PM (Electronically Signed)
--- NOTE | 2021-06-14 09:52 | CR ---
CHEST: Portable 06/12/2021 and 3:31 PM CLINICAL HISTORY:Cough COMPARISON:06/02/2021 FINDINGS: Patient is a left subclavian catheter. Tip is in the brachiocephalic vein. Left chest tube remains in place. There is a left pleural effusion and/or thickening. There is a small right pleural effusion. Impression: Left chest tube and left subclavian catheter in place Left pleural effusion and/or pleural thickening Small right effusion No significant change from prior study
== END 2021-06-12 17:42 | disposition home or self-care (01) ==
LOC: JP.ED 13:53
DX: E11.649 Type 2 diabetes mellitus with hypoglycemia without coma (principal); J45.909 Unspecified asthma, uncomplicated; E78.00 Pure hypercholesterolemia, unspecified; I10 Essential (primary) hypertension; E66.9 Obesity, unspecified; Z68.28 Body mass index [BMI] 28.0-28.9, adult; Z88.5 Allergy status to narcotic agent; Z79.82 Long term (current) use of aspirin; Z79.84 Long term (current) use of oral hypoglycemic drugs
CPT/HCPCS: 36415; 70450; 71045; 71045-26; 80053; 81001; 82140; 82947; 83605; 84484; 85025; 96374; 99285-25

== ENCOUNTER 2021-10-07 09:17 | Emergency (ER) | payer MEDICARE ==
[2021-10-07] MEDS ORDERED: Sodium Chloride 0.9% 1,000 ML IV SCH (11:00)
[2021-10-07 11:35] LABS: CORONAVIRUS COVID-19 NAA NEGATIVE (NEGATIVE)
[2021-10-07] MEDS ORDERED: Furosemide 40 MG/4 ML VIAL IVPUSH ONE (13:45)
== END 2021-10-07 15:00 | disposition other institution (70) ==
LOC: JP.ED 09:17
DX: I11.0 Hypertensive heart disease with heart failure (principal); I50.43 Acute on chronic combined systolic (congestive) and diastolic (congestive) heart failure; J90 Pleural effusion, not elsewhere classified; R53.1 Weakness; E78.00 Pure hypercholesterolemia, unspecified; J45.909 Unspecified asthma, uncomplicated; E11.9 Type 2 diabetes mellitus without complications; E66.9 Obesity, unspecified; Z88.5 Allergy status to narcotic agent; Z79.84 Long term (current) use of oral hypoglycemic drugs; Z79.82 Long term (current) use of aspirin; Z79.01 Long term (current) use of anticoagulants; Z79.899 Other long term (current) drug therapy; Z20.822 Contact with and (suspected) exposure to COVID-19
CPT/HCPCS: 0241U; 36415; 71045; 80053; 81001; 82550; 83605; 85025; 96374; 99285; J1940; J7030

== ENCOUNTER 2021-12-16 16:08 | Emergency (ER) | payer MEDICARE | END 2021-12-16 17:56 | disposition home or self-care (01) | LOC: JP.ED 16:08 | DX: K59.01 Slow transit constipation (principal); E78.00 Pure hypercholesterolemia, unspecified; I10 Essential (primary) hypertension; E11.9 Type 2 diabetes mellitus without complications; E66.9 Obesity, unspecified; Z68.23 Body mass index [BMI] 23.0-23.9, adult; Z86.73 Personal history of transient ischemic attack (TIA), and cerebral infarction without residual deficits; Z88.5 Allergy status to narcotic agent; Z79.84 Long term (current) use of oral hypoglycemic drugs | CPT/HCPCS: 99282; 99283 ==

== ENCOUNTER 2023-04-03 09:19 | Emergency (ER) | payer MEDICARE ==
[2023-04-03] MEDS ORDERED: Albuterol/Ipratropium 3.0-0.5 MG/3 ML Neb Soln NEB ONE (10:09)
[2023-04-03 10:20] LABS: BASOPHILS PERCENT AUTO 0.3 % (0.1-1.3); EOSINOPHILS ABSOLUTE AUTO 0.14 K/uL (0.00-0.40); EOSINOPHILS PERCENT AUTO 2.3 % (0.0-5.4); HEMATOCRIT 40.8 % (34.3-46.0); IMMATURE GRAN PERCENT AUTO 0.3 % (0.0-0.7); LYMPHOCYTES ABSOLUTE AUTO 0.31 K/uL (0.8-3.3); MEAN CORPUSCULAR HEMOGLOBIN 29.1 pg (31.6-35.5); MEAN CORPUSCULAR HGB CONC 31.9 g/dL (31.6-35.5); MEAN CORPUSCULAR VOLUME 91.5 fL (81.4-99.0); MONOCYTES ABSOLUTE AUTO 0.53 K/uL (0.20-0.90); MONOCYTES PERCENT AUTO 8.6 % (3.3-12.6); NEUTROPHILS ABSOLUTE AUTO 5.15 K/uL (1.0-7.6); NEUTROPHILS PERCENT AUTO 83.5 % (40.0-78.1); PLATELET COUNT,PLT 161 K/uL (130-375); RED BLOOD CELL COUNT 4.46 M/uL (3.77-5.24); WHITE BLOOD CELL COUNT,WBC 6.2 K/uL (3.2-11.0)
[2023-04-03 10:46] LABS: BASOPHILS ABSOLUTE AUTO 0.02 K/uL (0.00-0.10); IMMATURE GRAN ABSOLUTE AUTO 0.02 K/uL (0.00-0.23)
[2023-04-03 10:51] LABS: ALANINE AMINOTRANSFERASE,ALT 15 U/L (12-78); ALBUMIN 2.9 g/dL (3.4-5.0); ALKALINE PHOSPHATASE 89 U/L (46-116); ASPARTATE AMNIOTRANSFERASE,AST 14 U/L (15-37); BILIRUBIN TOTAL 1.3 mg/dL (0.2-1.0); BLOOD UREA NITROGEN,BUN 10 mg/dL (7-18); CALCIUM 8.5 mg/dL (8.5-10.1); CARBON DIOXIDE,CO2 29 mmol/L (21-32); CHLORIDE,CL 106 mmol/L (100-108); CREATININE 1.1 mg/dL (0.6-1.0); ESTIMATED GFR 51 mL/min (>60); GLUCOSE RANDOM 228 mg/dL (74-106); POTASSIUM,K 3.4 mmol/L (3.6-5.2); PROTEIN TOTAL,TP 5.7 g/dL (6.4-8.2); SODIUM,NA 145 mmol/L (140-148)
[2023-04-03 11:01] LABS: ANION GAP 13.4 mmol/L (5.0-14.0); EST CRCL DRUG DOSING (CG) 29.79 mL/min
[2023-04-03 11:02] LABS: TROPONIN I HIGH SENSITIVITY 125.2 pg/mL (<=60.3)
[2023-04-03] MEDS ORDERED: Aspirin 81 MG Tab.Chew PO ONE (11:06)
[2023-04-03] MEDS ORDERED: Heparin Sodium 5,000 Units/ML Vial IVPUSH ONE (12:01)
[2023-04-03] MEDS ORDERED: Heparin Sodium/D5W 25,000 UNITS/500 ML BAG IV SCH (12:15)
== END 2023-04-03 17:05 | disposition other institution (70) ==
LOC: JP.ED 09:19
DX: I21.4 Non-ST elevation (NSTEMI) myocardial infarction (principal); I10 Essential (primary) hypertension; J45.909 Unspecified asthma, uncomplicated; E11.9 Type 2 diabetes mellitus without complications; Z79.899 Other long term (current) drug therapy; Z79.84 Long term (current) use of oral hypoglycemic drugs; Z79.01 Long term (current) use of anticoagulants; Z88.5 Allergy status to narcotic agent
CPT/HCPCS: 36415; 71045; 80053; 82947; 84145; 84484; 85025; 86140; 93005; 94640; 96365; 96366; 96376; 99285; A9270; J1644; J7620

== ENCOUNTER 2023-05-20 18:46 | Emergency (ER) | payer MEDICARE | END 2023-05-20 19:48 | disposition left against medical advice (07) | LOC: JP.ED 18:46 | DX: Z53.21 Procedure and treatment not carried out due to patient leaving prior to being seen by health care provider (principal) ==

== ENCOUNTER 2024-06-16 10:20 | Emergency (ER) | payer MEDICARE ==
[2024-06-16 12:08] LABS: BASOPHILS ABSOLUTE AUTO 0.03 K/uL (0.00-0.10); BASOPHILS PERCENT AUTO 0.4 % (0.1-1.3); EOSINOPHILS ABSOLUTE AUTO 0.32 K/uL (0.00-0.40); EOSINOPHILS PERCENT AUTO 4.2 % (0.0-5.4); HEMATOCRIT 40.5 % (34.3-46.0); HEMOGLOBIN 13.6 g/dL (11.2-15.5); IMMATURE GRAN PERCENT AUTO 0.3 % (0.0-0.7); LYMPHOCYTES ABSOLUTE AUTO 0.75 K/uL (0.8-3.3); LYMPHOCYTES PERCENT AUTO 9.9 % (11.4-47.7); MEAN CORPUSCULAR HEMOGLOBIN 28.2 pg (31.6-35.5); MEAN CORPUSCULAR HGB CONC 33.6 g/dL (31.6-35.5); MONOCYTES ABSOLUTE AUTO 0.63 K/uL (0.20-0.90); MONOCYTES PERCENT AUTO 8.3 % (3.3-12.6); NEUTROPHILS ABSOLUTE AUTO 5.84 K/uL (1.0-7.6); NEUTROPHILS PERCENT AUTO 76.9 % (40.0-78.1); PLATELET COUNT,PLT 204 K/uL (130-375); RED BLOOD CELL COUNT 4.82 M/uL (3.77-5.24); WHITE BLOOD CELL COUNT,WBC 7.6 K/uL (3.2-11.0)
[2024-06-16 12:12] LABS: IMMATURE GRAN ABSOLUTE AUTO 0.02 K/uL (0.00-0.23)
[2024-06-16 12:29] LABS: ALANINE AMINOTRANSFERASE,ALT 24 U/L (12-78); ALBUMIN 3.4 g/dL (3.4-5.0); ALKALINE PHOSPHATASE 170 U/L (46-116); ASPARTATE AMNIOTRANSFERASE,AST 16 U/L (15-37); BILIRUBIN TOTAL 1.3 mg/dL (0.2-1.0); BLOOD UREA NITROGEN,BUN 24 mg/dL (7-18); CALCIUM 9.9 mg/dL (8.5-10.1); CARBON DIOXIDE,CO2 26 mmol/L (21-32); CHLORIDE,CL 100 mmol/L (100-108); CREATININE 1.4 mg/dL (0.6-1.0); EST CRCL DRUG DOSING (CG) 23.02 mL/min; ESTIMATED GFR 38 mL/min (>60); GLUCOSE RANDOM 341 mg/dL (74-106); POTASSIUM,K 4.6 mmol/L (3.6-5.2); PROTEIN TOTAL,TP 6.9 g/dL (6.4-8.2); SODIUM,NA 137 mmol/L (140-148)
[2024-06-16 12:43] LABS: ANION GAP 15.6 mmol/L (5.0-14.0)
[2024-06-16] MEDS: fentaNYL 100 MCG/2 ML SDV IVPUSH ONE (13:04)
[2024-06-16] MEDS ORDERED: Ondansetron 4 MG/2 ML SDV IVPUSH ONE (13:59)
[2024-06-16] MEDS: Iopamidol 612 MG/ML 100 ML Bottle IV SCH (20:45)
[2024-06-16] MEDS: Sodium Chloride 0.9% 10 ML Syringe FLUSH ONE (20:45)
[2024-06-16] MEDS: Sodium Chloride 0.9% 80 ML IV SCH (20:45)
[2024-06-16] MEDS: Sodium Chloride 0.9% 10 ML Syringe FLUSH PRN (20:50)
== END 2024-06-16 17:00 | disposition home or self-care (01) ==
LOC: JP.ED 10:20
DX: K61.1 Rectal abscess (principal); I10 Essential (primary) hypertension; E78.00 Pure hypercholesterolemia, unspecified; I25.10 Atherosclerotic heart disease of native coronary artery without angina pectoris; J45.909 Unspecified asthma, uncomplicated; E11.9 Type 2 diabetes mellitus without complications; Z79.899 Other long term (current) drug therapy; Z79.84 Long term (current) use of oral hypoglycemic drugs; Z88.5 Allergy status to narcotic agent
CPT/HCPCS: 36415; 74177; 80053; 83605; 84145; 85025; 96374; 99284; J3010; J3490; Q9967

== ENCOUNTER 2024-08-21 13:07 | Observation (INO) | payer MEDICARE ==
[2024-08-21 15:04] LABS: APPEARANCE,URINE TURBID (CLEAR); BILIRUBIN,URINE NEGATIVE (NEGATIVE); COLOR,URINE RED (YELLOW); GLUCOSE,URINE 500 mg/dL (NEGATIVE); KETONES,URINE NEGATIVE (NEGATIVE); LEUKOCYTE ESTERASE,URINE TRACE (NEGATIVE); NITRITE,URINE NEGATIVE (NEGATIVE); OCCULT BLOOD,URINE LARGE (NEGATIVE); PH,URINE 5.5 (5.0-8.0); PROTEIN,URINE >=300 mg/dL (NEGATIVE); UROBILINOGEN,URINE 0.2 EU/dL (0.2-1.0)
[2024-08-21 15:42] LABS: AMORPHOUS SEDIMENT,URINE NOT SEEN; BACTERIA,URINE MANY; EPITHELIAL CELLS,URINE FEW; MUCUS,URINE NOT SEEN; RBC,URINE PACKED (0-5)
[2024-08-21] MEDS: Sodium Chloride 0.9% 1,000 ML IV SCH (16:13)
[2024-08-21] MEDS: Sodium Chloride 0.9% 10 ML Syringe FLUSH PRN (16:13)
[2024-08-21] MEDS ORDERED: Sodium Chloride 0.9% 10 ML Syringe FLUSH PRN (18:02)
[2024-08-21] MEDS ORDERED: Glucose Gel 15 GM in 37.5 GM Tube PO PRN (18:02)
[2024-08-21] MEDS ORDERED: Ondansetron 4 MG/2 ML SDV IV PRN (18:02)
[2024-08-21] MEDS ORDERED: 50% Dextrose in Water 50 ML Syringe IV PRN (18:02)
[2024-08-21] MEDS ORDERED: Polyethylene Glycol 3350 Powder 17 GM Packet PO PRN (18:02)
[2024-08-21] MEDS ORDERED: Simethicone 125 MG Tab.Chew PO PRN (18:02)
[2024-08-21] MEDS: Insulin Lispro 100 Unit/ML 3 ML KwikPen SUBCUT SCH (18:49)
[2024-08-21] MEDS: Sodium Chloride 0.9% 60 ML IV SCH (19:33)
[2024-08-21] MEDS: Iopamidol 612 MG/ML 100 ML Bottle IV SCH (19:34)
[2024-08-21] MEDS: Acetaminophen 325 MG Tab PO PRN (19:41)
[2024-08-21] MEDS: Metoprolol Succinate 25 MG Tab.ER PO SCH (20:46)
[2024-08-21] MEDS: Sacubitril/Valsartan 24 MG-26 MG Tab PO SCH (20:46)
[2024-08-21] MEDS: atorvaSTATin 20 MG Tab PO SCH (20:46)
[2024-08-21] MEDS: Digoxin 125 MCG Tab PO SCH (20:46)
[2024-08-21] MEDS ORDERED: NATEGLINIDE 60 MG PO SCH (21:00)
[2024-08-21] MEDS: cefTRIAXone 1 GM in Sodium Chloride 0.9% 50 ML IV SCH (22:38)
[2024-08-21] MEDS ORDERED: Calcium Carbonate 500 MG Tab.Chew PO PRN (23:00)
[2024-08-21] MEDS ORDERED: Melatonin 3 MG Tab PO PRN (23:05)
[2024-08-22 05:27] LABS: HEMATOCRIT 37.1 % (34.3-46.0); HEMOGLOBIN 12.4 g/dL (11.2-15.5); MEAN CORPUSCULAR HEMOGLOBIN 28.6 pg (31.6-35.5); MEAN CORPUSCULAR HGB CONC 33.4 g/dL (31.6-35.5); MEAN CORPUSCULAR VOLUME 85.5 fL (81.4-99.0); RED BLOOD CELL COUNT 4.34 M/uL (3.77-5.24)
[2024-08-22 05:54] LABS: CALCIUM 9.2 mg/dL (8.5-10.1); CREATININE 1.5 mg/dL (0.6-1.0); EST CRCL DRUG DOSING (CG) 21.49 mL/min
[2024-08-22] MEDS: Aspirin 81 MG Tab.EC PO SCH (08:50)
[2024-08-22] MEDS: Lactobacillus Rhamnosus GG (Probiotic) Cap PO SCH (08:50)
[2024-08-22] MEDS: Magnesium Oxide 400 MG Tab PO SCH (08:50)
[2024-08-22] MEDS: Metoprolol Succinate 50 MG Tab.ER PO SCH (08:50)
[2024-08-22] MEDS: Sennosides/Docusate Sodium 50-8.6 MG Tab PO SCH (08:50)
[2024-08-22] MEDS: Digoxin 125 MCG Tab PO SCH (11:25)
== END 2024-08-22 13:10 | disposition home or self-care (01) ==
LOC: JP.ED 13:07 → JP.MS 17:08
PROVIDERS: ADMIT Hospitalist; ATTEND Hospitalist
DX: N30.01 Acute cystitis with hematuria (principal); E11.65 Type 2 diabetes mellitus with hyperglycemia; C85.10 Unspecified B-cell lymphoma, unspecified site; I10 Essential (primary) hypertension; E78.00 Pure hypercholesterolemia, unspecified; I25.10 Atherosclerotic heart disease of native coronary artery without angina pectoris; J45.909 Unspecified asthma, uncomplicated; Z79.899 Other long term (current) drug therapy
CPT/HCPCS: 36415; 71045; 74177; 80048; 80162; 81001; 82947; 85027; 87086; 87088; 87186; 99222; 99238; A9270; J0696; J1815; J3490; J7030; Q9967

== ENCOUNTER 2025-04-23 20:15 | Emergency (ER) | payer MEDICARE ==
[2025-04-23 21:12] LABS: APPEARANCE,URINE SLIGHTLY CLOUDY (CLEAR); GLUCOSE,URINE 500 mg/dL (NEGATIVE); OCCULT BLOOD,URINE LARGE (NEGATIVE)
[2025-04-23 21:18] LABS: BASOPHILS ABSOLUTE AUTO 0.04 K/uL (0.00-0.10); BASOPHILS PERCENT AUTO 0.3 % (0.1-1.3); EOSINOPHILS ABSOLUTE AUTO 0.23 K/uL (0.00-0.40); EOSINOPHILS PERCENT AUTO 2.0 % (0.0-5.4); IMMATURE GRAN ABSOLUTE AUTO 0.04 K/uL (0.00-0.23); IMMATURE GRAN PERCENT AUTO 0.3 % (0.0-0.7); LYMPHOCYTES ABSOLUTE AUTO 0.73 K/uL (0.8-3.3); LYMPHOCYTES PERCENT AUTO 6.3 % (11.4-47.7); MONOCYTES ABSOLUTE AUTO 0.78 K/uL (0.20-0.90); MONOCYTES PERCENT AUTO 6.8 % (3.3-12.6); NEUTROPHILS ABSOLUTE AUTO 9.73 K/uL (1.0-7.6); NEUTROPHILS PERCENT AUTO 84.3 % (40.0-78.1); PLATELET COUNT,PLT 245 K/uL (130-375); RED BLOOD CELL COUNT 5.13 M/uL (3.77-5.24); WHITE BLOOD CELL COUNT,WBC 11.6 K/uL (3.2-11.0)
[2025-04-23 21:19] LABS: SQUAMOUS EPITHELIAL CELLS,UR NOT SEEN /HPF; UROTHELIAL CELLS,URINE FEW /HPF
[2025-04-23 21:35] LABS: BLOOD UREA NITROGEN,BUN 19.0 mg/dL (7-18); CARBON DIOXIDE,CO2 22.0 mmol/L (21-32); CHLORIDE,CL 97.0 mmol/L (100-108); CREATININE 1.6 mg/dL (0.6-1.0); EST CRCL DRUG DOSING (CG) 19.81 mL/min; ESTIMATED GFR 32.0 mL/min (>60); POTASSIUM,K 3.8 mmol/L (3.6-5.2); SODIUM,NA 132.0 mmol/L (140-148)
[2025-04-23 21:38] LABS: GLUCOSE RANDOM 625.0 mg/dL (74-106)
[2025-04-23] MEDS ORDERED: 50% Dextrose in Water 50 ML Syringe IVPUSH PRN (21:58)
[2025-04-23] MEDS: Insulin Regular, Human 100 Units/ML 10 ML Vial SUBCUT ONE (22:04)
== END 2025-04-23 22:13 | disposition home or self-care (01) ==
LOC: JP.ED 20:15
DX: R31.0 Gross hematuria (principal); E78.00 Pure hypercholesterolemia, unspecified; E11.9 Type 2 diabetes mellitus without complications; Z88.8 Allergy status to other drugs, medicaments and biological substances; Z79.4 Long term (current) use of insulin; Z79.82 Long term (current) use of aspirin; Z79.899 Other long term (current) drug therapy
CPT/HCPCS: 36415; 80048; 81001; 83605; 85025; 99284; A9270